=== PATIENT | male | born 1945 | race Caucasian/White ===

== ENCOUNTER → 2018-06-27 09:09 | Outpatient (CLI) | payer MEDICARE, SELFPAY ==
[2018-06-27 10:37] LABS: Hemoglobin A1C% w Est Avg Glu 5.1 % (4.0-6.0)
[2018-06-27 10:47] LABS: Alanine Aminotransferase 44 IU/L (21-72); Albumin Globulin Ratio 1.4 (1.0-2.8); Alkaline Phosphatase 85 U/L (38-126); Aspartate Aminotransferase 39 IU/L (17-59); Bilirubin Total 1.2 mg/dL (0.2-1.3); Blood Urea Nitrogen 9 mg/dL (9-20); Calcium 9.4 mg/dL (8.4-10.2); Carbon Dioxide 29 mmol/L (22-32); Chloride 90 mmol/L (98-107); Cholesterol 178 mg/dL (140-199); Estimated Glomerular Filt Rate > 60.0 mL/min (>60); Globulin 3.7 g/dL (1.7-4.1); Glucose 97 mg/dL (80-110); HDL Cholesterol 65 mg/dL (40-60); HEMOLYSIS < 15 (0-50); LDL Cholesterol Calculated 80 mg/dL (<100); Potassium 3.1 mmol/L (3.4-5.1); Sodium 133 mmol/L (137-145); Total Protein 8.7 g/dL (6.3-8.2); Triglycerides 164 mg/dL (35-150)
== END ==
PROVIDERS: Family Provider Family Medicine; PCP Family Medicine; Visit Provider Family Medicine
DX: E11.9 Type 2 diabetes mellitus without complications (principal); E78.2 Mixed hyperlipidemia; E87.6 Hypokalemia; I10 Essential (primary) hypertension
CPT/HCPCS: 36415; 80053; 80061; 83036; 84443

== ENCOUNTER → 2018-08-01 13:24 | Outpatient (CLI) | payer MEDICARE, SELFPAY ==
[2018-08-01 14:49] LABS: BUN Creatinine Ratio 22.9 (6-22); Blood Urea Nitrogen 16 mg/dL (9-20); Calcium 9.5 mg/dL (8.4-10.2); Carbon Dioxide 23 mmol/L (22-32); Chloride 103 mmol/L (98-107); Estimated Glomerular Filt Rate > 60.0 mL/min (>60); Glucose 95 mg/dL (80-110); HEMOLYSIS < 15 (0-50); Potassium 4.3 mmol/L (3.4-5.1); Sodium 137 mmol/L (137-145)
[2018-08-01 15:16] LABS: Prostate Specific Antigen Scrn 2.25 ng/mL (0.1-4.0)
== END ==
PROVIDERS: Family Provider Family Medicine; PCP Family Medicine; Visit Provider Family Medicine
DX: E11.9 Type 2 diabetes mellitus without complications (principal); I10 Essential (primary) hypertension; Z12.5 Encounter for screening for malignant neoplasm of prostate
CPT/HCPCS: 36415; 80048; G0103

== ENCOUNTER 2019-04-05 10:20 | Inpatient (IN) | payer MEDICARE, SELFPAY ==
[2019-04-05] VITALS (11 sets, daily range): BP systolic 101–147; BP diastolic 53–78; PULSE 72–102; RESP 16–27; TEMP 35.1–36.8; O2SAT 97–100; BMI 19.3; BMI 23.8
--- NOTE | 2019-04-05 10:25 | DI.RAD.S_ITS ---
PROCEDURE: XR ACUTE ABDOMEN SERIES INDICATIONS: altered mental status TECHNIQUE: One view chest and two views of the abdomen were acquired. COMPARISON: None. FINDINGS: Surgical changes and devices: None. Chest: There is elevation of the right diaphragm. No focal consolidation, effusion, or pneumothorax is appreciated. The heart is normal in size. There is aortic atherosclerosis. The pulmonary vascular markings appear to be within normal limits. Degenerative changes of the image portions of the shoulders and spine are not well characterized on this study. Abdomen: No air-filled distended small bowel loops are evident demonstrating air-fluid levels. Air and stool are seen within the colon. No definite pneumoperitoneum is appreciated. The imaged osseous structures are age-appropriate. No suspicious calcifications. Visualized solid organ contours appear normal. Scattered vascular calcifications are present. IMPRESSION: 1. No bowel obstruction. 2. No acute cardiopulmonary process. Dictated by: Rylan Lara M.D. on 04/05/2019 at 10:46 Approved by: Rylan Lara M.D. on 04/05/2019 at 10:48
--- NOTE | 2019-04-05 10:32 | ED.AMS ---
HPI - Altered Mental Status General Chief Complaint: Altered Mental Status Stated Complaint: Altered Mental Status Time Seen by Provider: 04/05/19 10:25 Source: EMS Mode of arrival: EMS Limitations: altered mental status History of Present Illness HPI narrative: This is a 73-year-old male comes to the emergency department with altered mental status. Patient's boss was concerned because he did not show up for work today so they went to his house and found him on the floor. It's unclear when the patient ended up on the floor, he does not recall the circumstances that led up to this. He is confused about the year but is able to tell me his medical history appropriately. He was found with the front are open although the he was on. Patient had urinated on himself. He otherwise is oriented to the fact that he has an anti Cordis and at the hospital. He states that he did stop drinking about 2 days ago because he felt like he was stumbling into things. He states he drinks 5-6 beers daily and when asked if he has ever had the shakes or withdraws he says yes of course. He states he does take an aspirin daily. Cholesterol medication as well as blood pressure medication. Related Data Home Medications Medication Instructions Recorded Confirmed aspirin 81 mg PO DAILY #0 12/25/10 04/05/19 atorvastatin 10 mg PO BEDTIME 04/05/19 04/05/19 potassium chloride 60 meq PO BEDTIME 04/05/19 04/05/19 potassium chloride [Klor-Con M20] 80 meq PO DAILY 04/05/19 04/05/19 Previous Rx's Medication Instructions Recorded hydrochlorothiazide 25 mg PO QDAY #90 tab 06/28/17 nifedipine 30 mg tablet,extended 30 mg PO QDAY #90 tab 07/04/18 release fluticasone propionate 1 spray INTRANASAL QDAYP PRN #16 gm 07/10/18 metoprolol tartrate 50 mg tablet 50 mg PO BID #180 tab 09/17/18 Allergies Allergy/AdvReac Type Severity Reaction Status Date / Time No Known Drug Allergies Allergy Unverified 04/05/19 10:31 Review of Systems Review of Systems ROS Unobtainable: All systems reviewed & are unremarkable except as noted in HPI and below Patient History Medical History Dyslipidemia (Acute) Hypertension (Acute) Family History Father Heart disease Mother Heart disease Social History household members: none Smoking Status: Former smoker alcohol intake: former Smoking Status: Former smoker alcohol intake frequency: 3 or more drinks per day Alcohol type: beer Substance Use Type: does not use Exam Narrative Exam Narrative: GEN: well nourished, disheveled male, alert and oriented to self patient knows he is in [place] at the hospital but does not know the year, patient appears to be in moderate distress. Patient is cool to touch. HEENT: Atraumatic, pupils are equal round reactive to light, extraocular movements are intact, nares are clear, TMs are clear with no fluid, there is no conjunctival pallor. Throat is clear without any exudates, erythema, tonsillar enlargement or uvular deviation, questionable facial droop on right. HEART: Regular rate and rhythm without murmur, clicks, rubs. No carotid bruits, pulses are equal in upper and lower extremities LUNGS:Lungs clear to auscultation, no wheezes, rales, crackles, chest moves symmetrically, no tachypnea accessory muscle use. ABD:bowel sounds normal, soft, non-tender, no guarding, rebound, rigidity, no masses noted, no hepatosplenomegaly :No CVA tenderness MSCL: Non-tender, no muscle atrophy, muscles strength 5/5 upper extremities, patient is able to lift both legs up off the bed a several inches and hold them at equal height. Gait not tested. NEURO:CN 2-12 intact, sensation normal, reflexes 2/4 upper and lower extremities. finger nose finger test patient has mild difficulty bilaterally, patient has difficulty with both legs for heel-caceres. SKIN: Initial Vital Signs Initial Vital Signs: Vital Signs Temperature 95.1 F L 04/05/19 10:26 Pulse Rate 72 04/05/19 10:26 Respiratory Rate 18 04/05/19 10:26 Blood Pressure 147/74 H 04/05/19 10:26 Pulse Oximetry 100 04/05/19 10:26 Scores GCS Portal coma scale eye opening: Spontaneous Chris coma scale verbal response: Confused Portal coma scale motor response: Obey commands Chris coma scale total score: 14 Course Orders Ordered: ED Orders 04/05/19 10:10 CKMB Panel (CK + CKMB) Stat Complete Blood Count AUTO DIFF Stat Comprehensive Metabolic Panel Stat Ethanol (ETOH) Stat Partial Thromboplastin Time Stat Procalcitonin Stat Prolactin Stat Prothrombin Time INR Stat Thyroid Stimulating Hormone Stat Troponin I Stat 04/05/19 10:15 Ammonia (NH3) Stat Lactate (Lactic Acid) Stat Type and Screen Stat 04/05/19 10:25 XR acute abdomen series Stat EKG-12 Lead Stat 04/05/19 10:32 CT angio head and neck Stat 04/05/19 12:07 Urinalysis and Microscopic Stat Urine Drug Screen, Rapid Stat 04/05/19 13:43 Blood Culture Stat Enoxaparin Sodium (Lovenox) 30 mg SUBCUT DAILY DION Last Admin: 04/05/19 14:57 Dose: 30 mg Documented by: HARSH Sodium Chloride (Normal Saline 0.9%) 1,000 mls @ 200 mls/hr IV CONT DION Last Admin: 04/05/19 13:44 Dose: 200 mls/hr Documented by: HARSH Influenza Virus Vaccine (Flu Vaccine) 0.5 ml IM .ONCE ONE Stop: 04/06/19 09:01 Naloxone HCl (Narcan) 0.2 mg IV Q2MIN PRN PRN Reason: Opiate Reversal Discontinued Medications Sodium Chloride (Normal Saline 0.9%) 1,000 mls @ 1,000 mls/hr IV BOLUS ONE Stop: 04/05/19 11:24 Last Infusion: 04/05/19 12:50 Dose: 0 mls/hr Documented by: Admin: 04/05/19 11:27 Dose: 1,000 mls/hr Documented by: TERE Sodium Chloride (Normal Saline 0.9%) 1,000 mls @ 1,000 mls/hr IV BOLUS ONE Stop: 04/05/19 14:10 Last Infusion: 04/05/19 13:24 Dose: 0 mls/hr Documented by: Admin: 04/05/19 12:15 Dose: 1,000 mls/hr Documented by: OPAL Vital Signs Vital signs: Vital Signs - 8 hr 04/05/19 11:34 04/05/19 12:08 04/05/19 12:12 Temperature 98.2 F Pulse Rate 81 84 Respiratory Rate 16 27 H Blood Pressure [Left Arm] 139/53 L 120/78 Pulse Oximetry 100 100 MDM - Altered Mental Status Lab Data Attestation: I reviewed the patient's lab results. Result diagrams: 04/05/19 10:10 04/05/19 10:10 Labs: Lab Results 04/05/19 04/05/19 04/05/19 Range/Units 10:10 10:10 10:10 WBC 8.7 (4.5-11.0) X10^3/uL RBC 3.91 L (4.5-5.9) X10^6/uL Hgb 13.0 L (13.5-17.5) g/dL Hct 37.4 L (41-53) % MCV 95.6 (80-100) fL MCH 33.3 (26-34) PG MCHC 34.8 (30-36) % RDW 12.8 (11.6-14.8) % Plt Count 219 (150-400) X10^3/uL Neut % (Auto) 82.1 H (50-75) % Lymph % (Auto) 6.1 L (25-40) % Stephenson % (Auto) 11.6 (3-14) % Eos % (Auto) 0.0 L (2-4) % Baso % (Auto) 0.2 (0-2) % Neut # (Auto) 7100 H (1119-0414) /uL Lymph # (Auto) 500 L (5939-6783) /uL Stephenson # (Auto) 1000 H (0-900) /uL Eos # (Auto) 0 (0-450) /uL Baso # (Auto) 0 (0-100) /uL PT 12.6 (10.1-12.7) SECONDS INR 1.1 (0.9-1.3) APTT 38 H (26.4-36.2) SECONDS Sodium 123 L (137-145) mmol/L Potassium 5.8 H (3.4-5.1) mmol/L Chloride 88 L (98-107) mmol/L Carbon Dioxide 12 L (22-32) mmol/L BUN 54 H (9-20) mg/dL Creatinine 3.60 H (0.66-1.25) mg/dL Estimated GFR 16.7 L (>60) mL/min BUN/Creatinine Ratio 15.0 (6-22) Glucose 102 (80-110) mg/dL Lactate (0.7-2.1) mmol/L Calcium 9.6 (8.4-10.2) mg/dL Total Bilirubin 2.0 H (0.2-1.3) mg/dL AST 193 H (17-59) IU/L ALT 48 (<50) IU/L Alkaline Phosphatase 90 (38-126) U/L Ammonia (9-30) umol/L Total Creatine Kinase 4435 H (55-170) U/L CK-MB (CK-2) 89.20 H (<2.37) ng/mL CK-MB (CK-2) Rel Index 2.0 (1.5-5.0) % Troponin I 0.040 H (0.01-0.034) ng/mL Total Protein 8.2 (6.3-8.2) g/dL Albumin 4.9 (3.5-5.0) g/dL Globulin 3.3 (1.7-4.1) g/dL Albumin/Globulin Ratio 1.5 (1.0-2.8) Procalcitonin (<0.5) ng/mL TSH (0.47-4.68) uIU/mL Prolactin 4.2 (3.7-17.9) ng/mL Urine Color Urine Appearance Urine pH (4.5-8.0) Ur Specific Bronson (1.000-1.035) Urine Protein (Negative) Urine Glucose (UA) (Negative) g/dL Urine Ketones (NEGATIVE) Urine Occult Blood (Negative) Urine Nitrate (Negative) Urine Bilirubin (NEGATIVE) Urine Urobilinogen (0.2) E.U./dL Ur Leukocyte Esterase (NEGATIVE) Urine RBC (0-5/HPF) Urine WBC (0-5/HPF) Urine Bacteria (None) Ur Culture Indicated? U Morph 300 ng/mL cutoff (Negative) Ur Oxycodone Screen (Negative) Urine Methadone Screen (Negative) Ur Barbiturates Screen (Negative) U Tricyclic Antidepress (Negative) Ur Phencyclidine Scrn (Negative) Ur Amphetamines Screen (Negative) U Methamphetamines Scrn (Negative) Ur MDMA Scrn (Ecstasy) (Negative) U Benzodiazepines Scrn (Negative) Urine Cocaine Screen (Negative) U Marijuana (THC) Screen (Negative) Ethyl Alcohol < 10 ( - 10) mg/dL Blood Type Antibody Screen 04/05/19 04/05/19 04/05/19 Range/Units 10:10 10:10 10:10 WBC (4.5-11.0) X10^3/uL RBC (4.5-5.9) X10^6/uL Hgb (13.5-17.5) g/dL Hct (41-53) % MCV (80-100) fL MCH (26-34) PG MCHC (30-36) % RDW (11.6-14.8) % Plt Count (150-400) X10^3/uL Neut % (Auto) (50-75) % Lymph % (Auto) (25-40) % Stephenson % (Auto) (3-14) % Eos % (Auto) (2-4) % Baso % (Auto) (0-2) % Neut # (Auto) (5332-7126) /uL Lymph # (Auto) (0561-4314) /uL Stephenson # (Auto) (0-900) /uL Eos # (Auto) (0-450) /uL Baso # (Auto) (0-100) /uL PT (10.1-12.7) SECONDS INR (0.9-1.3) APTT (26.4-36.2) SECONDS Sodium (137-145) mmol/L Potassium (3.4-5.1) mmol/L Chloride (98-107) mmol/L Carbon Dioxide (22-32) mmol/L BUN (9-20) mg/dL Creatinine (0.66-1.25) mg/dL Estimated GFR (>60) mL/min BUN/Creatinine Ratio (6-22) Glucose (80-110) mg/dL Lactate (0.7-2.1) mmol/L Calcium (8.4-10.2) mg/dL Total Bilirubin (0.2-1.3) mg/dL AST (17-59) IU/L ALT (<50) IU/L Alkaline Phosphatase (38-126) U/L Ammonia (9-30) umol/L Total Creatine Kinase Cancelled (55-170) U/L CK-MB (CK-2) Cancelled (<2.37) ng/mL CK-MB (CK-2) Rel Index Cancelled (1.5-5.0) % Troponin I Cancelled (0.01-0.034) ng/mL Total Protein (6.3-8.2) g/dL Albumin (3.5-5.0) g/dL Globulin (1.7-4.1) g/dL Albumin/Globulin Ratio (1.0-2.8) Procalcitonin 0.70 H (<0.5) ng/mL TSH 1.31 (0.47-4.68) uIU/mL Prolactin Cancelled (3.7-17.9) ng/mL Urine Color Urine Appearance Urine pH (4.5-8.0) Ur Specific Bronson (1.000-1.035) Urine Protein (Negative) Urine Glucose (UA) (Negative) g/dL Urine Ketones (NEGATIVE) Urine Occult Blood (Negative) Urine Nitrate (Negative) Urine Bilirubin (NEGATIVE) Urine Urobilinogen (0.2) E.U./dL Ur Leukocyte Esterase (NEGATIVE) Urine RBC (0-5/HPF) Urine WBC (0-5/HPF) Urine Bacteria (None) Ur Culture Indicated? U Morph 300 ng/mL cutoff (Negative) Ur Oxycodone Screen (Negative) Urine Methadone Screen (Negative) Ur Barbiturates Screen (Negative) U Tricyclic Antidepress (Negative) Ur Phencyclidine Scrn (Negative) Ur Amphetamines Screen (Negative) U Methamphetamines Scrn (Negative) Ur MDMA Scrn (Ecstasy) (Negative) U Benzodiazepines Scrn (Negative) Urine Cocaine Screen (Negative) U Marijuana (THC) Screen (Negative) Ethyl Alcohol ( - 10) mg/dL Blood Type Antibody Screen 04/05/19 04/05/19 04/05/19 Range/Units 10:15 10:15 10:15 WBC (4.5-11.0) X10^3/uL RBC (4.5-5.9) X10^6/uL Hgb (13.5-17.5) g/dL Hct (41-53) % MCV (80-100) fL MCH (26-34) PG MCHC (30-36) % RDW (11.6-14.8) % Plt Count (150-400) X10^3/uL Neut % (Auto) (50-75) % Lymph % (Auto) (25-40) % Stephenson % (Auto) (3-14) % Eos % (Auto) (2-4) % Baso % (Auto) (0-2) % Neut # (Auto) (3055-1643) /uL Lymph # (Auto) (3057-1676) /uL Stephenson # (Auto) (0-900) /uL Eos # (Auto) (0-450) /uL Baso # (Auto) (0-100) /uL PT (10.1-12.7) SECONDS INR (0.9-1.3) APTT (26.4-36.2) SECONDS Sodium (137-145) mmol/L Potassium (3.4-5.1) mmol/L Chloride (98-107) mmol/L Carbon Dioxide (22-32) mmol/L BUN (9-20) mg/dL Creatinine (0.66-1.25) mg/dL Estimated GFR (>60) mL/min BUN/Creatinine Ratio (6-22) Glucose (80-110) mg/dL Lactate 2.8 H (0.7-2.1) mmol/L Calcium (8.4-10.2) mg/dL Total Bilirubin (0.2-1.3) mg/dL AST (17-59) IU/L ALT (<50) IU/L Alkaline Phosphatase (38-126) U/L Ammonia < 9.0 L (9-30) umol/L Total Creatine Kinase (55-170) U/L CK-MB (CK-2) (<2.37) ng/mL CK-MB (CK-2) Rel Index (1.5-5.0) % Troponin I (0.01-0.034) ng/mL Total Protein (6.3-8.2) g/dL Albumin (3.5-5.0) g/dL Globulin (1.7-4.1) g/dL Albumin/Globulin Ratio (1.0-2.8) Procalcitonin (<0.5) ng/mL TSH (0.47-4.68) uIU/mL Prolactin (3.7-17.9) ng/mL Urine Color Urine Appearance Urine pH (4.5-8.0) Ur Specific Bronson (1.000-1.035) Urine Protein (Negative) Urine Glucose (UA) (Negative) g/dL Urine Ketones (NEGATIVE) Urine Occult Blood (Negative) Urine Nitrate (Negative) Urine Bilirubin (NEGATIVE) Urine Urobilinogen (0.2) E.U./dL Ur Leukocyte Esterase (NEGATIVE) Urine RBC (0-5/HPF) Urine WBC (0-5/HPF) Urine Bacteria (None) Ur Culture Indicated? U Morph 300 ng/mL cutoff (Negative) Ur Oxycodone Screen (Negative) Urine Methadone Screen (Negative) Ur Barbiturates Screen (Negative) U Tricyclic Antidepress (Negative) Ur Phencyclidine Scrn (Negative) Ur Amphetamines Screen (Negative) U Methamphetamines Scrn (Negative) Ur MDMA Scrn (Ecstasy) (Negative) U Benzodiazepines Scrn (Negative) Urine Cocaine Screen (Negative) U Marijuana (THC) Screen (Negative) Ethyl Alcohol ( - 10) mg/dL Blood Type O Positive Antibody Screen Negative 04/05/19 04/05/19 Range/Units 12:07 12:07 WBC (4.5-11.0) X10^3/uL RBC (4.5-5.9) X10^6/uL Hgb (13.5-17.5) g/dL Hct (41-53) % MCV (80-100) fL MCH (26-34) PG MCHC (30-36) % RDW (11.6-14.8) % Plt Count (150-400) X10^3/uL Neut % (Auto) (50-75) % Lymph % (Auto) (25-40) % Stephenson % (Auto) (3-14) % Eos % (Auto) (2-4) % Baso % (Auto) (0-2) % Neut # (Auto) (7610-1796) /uL Lymph # (Auto) (8788-2863) /uL Stephenson # (Auto) (0-900) /uL Eos # (Auto) (0-450) /uL Baso # (Auto) (0-100) /uL PT (10.1-12.7) SECONDS INR (0.9-1.3) APTT (26.4-36.2) SECONDS Sodium (137-145) mmol/L Potassium (3.4-5.1) mmol/L Chloride (98-107) mmol/L Carbon Dioxide (22-32) mmol/L BUN (9-20) mg/dL Creatinine (0.66-1.25) mg/dL Estimated GFR (>60) mL/min BUN/Creatinine Ratio (6-22) Glucose (80-110) mg/dL Lactate (0.7-2.1) mmol/L Calcium (8.4-10.2) mg/dL Total Bilirubin (0.2-1.3) mg/dL AST (17-59) IU/L ALT (<50) IU/L Alkaline Phosphatase (38-126) U/L Ammonia (9-30) umol/L Total Creatine Kinase (55-170) U/L CK-MB (CK-2) (<2.37) ng/mL CK-MB (CK-2) Rel Index (1.5-5.0) % Troponin I (0.01-0.034) ng/mL Total Protein (6.3-8.2) g/dL Albumin (3.5-5.0) g/dL Globulin (1.7-4.1) g/dL Albumin/Globulin Ratio (1.0-2.8) Procalcitonin (<0.5) ng/mL TSH (0.47-4.68) uIU/mL Prolactin (3.7-17.9) ng/mL Urine Color Yellow Urine Appearance Clear Urine pH 5.5 (4.5-8.0) Ur Specific Bronson <=1.005 (1.000-1.035) Urine Protein Negative (Negative) Urine Glucose (UA) Negative (Negative) g/dL Urine Ketones Negative (NEGATIVE) Urine Occult Blood 2+ H (Negative) Urine Nitrate Negative (Negative) Urine Bilirubin Negative (NEGATIVE) Urine Urobilinogen 0.2 (0.2) E.U./dL Ur Leukocyte Esterase Negative (NEGATIVE) Urine RBC 0-1/hpf (0-5/HPF) Urine WBC 0-1/hpf (0-5/HPF) Urine Bacteria None seen (None) Ur Culture Indicated? Cult not indicated U Morph 300 ng/mL cutoff Negative (Negative) Ur Oxycodone Screen Negative (Negative) Urine Methadone Screen Negative (Negative) Ur Barbiturates Screen Negative (Negative) U Tricyclic Antidepress Negative (Negative) Ur Phencyclidine Scrn Negative (Negative) Ur Amphetamines Screen Negative (Negative) U Methamphetamines Scrn Negative (Negative) Ur MDMA Scrn (Ecstasy) Negative (Negative) U Benzodiazepines Scrn Negative (Negative) Urine Cocaine Screen Negative (Negative) U Marijuana (THC) Screen Negative (Negative) Ethyl Alcohol ( - 10) mg/dL Blood Type Antibody Screen Imaging Data CT scan - head: Radiologist's impression: [address] [address] [address] Scan Report Signed Patient: Hector Wagner R#: [id number] : 6Acct:[id number] Age/Sex: 73 / MDate of Service: 04/05/19 Loc: ED Accession Number: [id number] Procedure: CT angio head and neck Ordering Provider: Tonie Fernandez D.O. PROCEDURE: CT ANGIO HEAD AND NECK INDICATIONS: cva vs other TECHNIQUE: Pre-contrast 4.5 mm thick sections acquired from the foramen magnum to the vertex. After the administration of intravenous contrast, 1 mm thick sections acquired from the aortic arch through the [place]. Post-contrast 4.5 mm thick sections then re-acquired from the foramen magnum to the vertex. 3-dimensional kqfryrp-qjacmgaqv-mzrvjflfzm (MIP) and/or volume rendering reformats were acquired of the central intracranial vasculature and neck separately. COMPARISON: None. FINDINGS: Image quality: Excellent. BRAIN: CSF spaces: Ventricles are normal in size and shape. Basal cisterns are patent. No extra-axial fluid collections. Brain: No midline shift. No intracranial bleeds. There is enlargement of the pituitary, measuring roughly 15 mm craniocaudal, which abuts the optic chiasm. There is mild diffuse cerebral volume loss. There is a mild degree of patchy low density within the periventricular and subcortical white matter. Lopez-white matter interface appears intact. Skull and face: Calvarium and facial bones appear intact, without suspicious lesions. Orbits appear normal. Sinuses: Sinuses and mastoids are clear. HEAD CT ANGIOGRAPHY: Anterior circulation: There is mild, less than 30% calcific stenosis of the bilateral cavernous internal carotid arteries. Intracranial internal carotid arteries are otherwise normal in size and flow. The flow within the paired anterior cerebral arteries is normal and symmetric. The flow within the middle cerebral arteries is normal and symmetric. The anterior communicating artery is seen. No aneurysms are seen. Posterior circulation: Visualized portions of the vertebral arteries demonstrate normal caliber, and join to form a normal appearing basilar artery. Flow within the posterior cerebral arteries is normal and symmetric. No aneurysms are seen. NECK CT ANGIOGRAPHY: Carotid system: Left vertebral artery arises directly from the aortic arch. The origins of the common carotid arteries appear patent. The common carotid arteries demonstrate normal caliber and courses. 50% calcific stenosis of the distal right common carotid artery is present at the bifurcation. There is 50% stenosis of the right internal carotid artery origin. High-grade stenosis of the right external carotid artery origin is present. There is mild, less than 10% calcific stenosis of the distal left common carotid artery at the bifurcation. Left internal carotid artery is patent. Posterior circulation: Moderate to high-grade origin stenosis of the right vertebral artery is present. Left vertebral artery arises roughly from the thoracic aortic arch, and demonstrates a moderate to high-grade origin stenosis. The more superior extracranial portions of both vertebral arteries also demonstrate normal courses and calibers. They join to form a normal appearing basilar artery. Soft tissues: Visualized neck soft tissues demonstrate no suspicious abnormalities. Calcification of the coronary vasculature is present. Bones: No suspicious bony lesions. Visualized cervical spine appears normally aligned. IMPRESSION: 1. No acute process. 2. Bilateral vertebral artery origin stenoses as described above. 3. 50 % right internal carotid artery stenosis. No left internal carotid artery stenosis. 4. 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 Nonemergent pituitary protocol MRI is recommended for further assessment. Any quantitative measurements of stenosis were performed using NASCET criteria. Dictated by: Jessica Smith M.D. on 04/05/2019 at 11:20 Approved by: Jessica Simth M.D. on 04/05/2019 at 11:29 Chest x-ray: Radiologist's impression: [address] [address] XRay Report Signed Patient: Hector Wagner R#: [id number] : 6Acct:[id number] Age/Sex: 73 / MDate of Service: 04/05/19 Loc: ED Accession Number: [id number] Procedure: XR acute abdomen series Ordering Provider: Tonie Fernandez D.O. PROCEDURE: XR ACUTE ABDOMEN SERIES INDICATIONS: altered mental status TECHNIQUE: One view chest and two views of the abdomen were acquired. COMPARISON: None. FINDINGS: Surgical changes and devices: None. Chest: There is elevation of the right diaphragm. No focal consolidation, effusion, or pneumothorax is appreciated. The heart is normal in size. There is aortic atherosclerosis. The pulmonary vascular markings appear to be within normal limits. Degenerative changes of the image portions of the shoulders and spine are not well characterized on this study. Abdomen: No air-filled distended small bowel loops are evident demonstrating air-fluid levels. Air and stool are seen within the colon. No definite pneumoperitoneum is appreciated. The imaged osseous structures are age-appropriate. No suspicious calcifications. Visualized solid organ contours appear normal. Scattered vascular calcifications are present. IMPRESSION: 1. No bowel obstruction. 2. No acute cardiopulmonary process. Dictated by: Rylan Lara M.D. on 04/05/2019 at 10:46 Approved by: Rylan Lara M.D. on 04/05/2019 at 10:48 ECG Data Attestation: I personally reviewed and interpreted this ECG as follows: Prior ECG tracings: not available for review Interpretation: Sinus rhythm with first-degree AV block. Rate of 79 P are 237 QRS of 122 and QTC of 465. Patient has ST depression in lateral leads, also in 1 and aVL. Patient has some elevation in 3, none appreciated in to our AVF although patient does have some artifact. Patient does not have priors for comparison. [facility] Narrative Medical decision making narrative: Patient comes in with altered mental status. No clear focal deficits. CT head and angio shows some 50% stenosis. Exact timing of when patient's episode occurred and could be greater than 24 hours easily so would definitely not be a candidate for any intervention. Patient's lab work shows rhabdo, hyponatremia which would explain his altered mental status, patient has some mild hyperkalemia and acute renal failure. Patient had a Bethea catheter placed for strict eyes and nose and immediately had about 3.5 L out over 30 minutes. Patient's blood pressure continued to be stable he did not become more tachycardic. Troponin is indeterminate, EKG does show some ST changes but only 1 lead of elevation. Patient does not have any prior EKGs and we also contacted his primary care office they also do not have any prior EKGs. Patient is alert and although he does not know the year is otherwise oriented to self and able to give some history and denies any symptoms at this time. Patient does have a procalcitonin but no obvious source of infection. Urine is negative, blood cultures were ordered. Patient has been afebrile in the department. He is actually cold to touch but was lying on the floor with his door open at home likely overnight if not longer. Patient's case was discussed with Dr. Yanez who accepts for admission, plan for ICU admission as patient is having massive diuresis and could potentially become hypotensive. Discharge Plan Departure Patient Disposition: Admitted As Inpatient Clinical Impression: Rhabdomyolysis, Altered mental status, Hyponatremia, Acute renal failure, Hyperkalemia, Acute urinary retention Discharge Date/Time: 04/05/19 13:24 Admit Date/Time: 04/05/19 12:40 Admit Provider: Nolberto Yanez
[2019-04-05 10:40] LABS: INR 1.1 (0.9-1.3); Prothrombin Time 12.6 SECONDS (10.1-12.7)
[2019-04-05 10:43] LABS: PTT Partial Thromboplastin Tim 38 SECONDS (26.4-36.2)
[2019-04-05 10:46] LABS: Albumin 4.9 g/dL (3.5-5.0); Albumin Globulin Ratio 1.5 (1.0-2.8); Alkaline Phosphatase 90 U/L (38-126); Aspartate Aminotransferase 193 IU/L (17-59); Blood Urea Nitrogen 54 mg/dL (9-20); Calcium 9.6 mg/dL (8.4-10.2); Carbon Dioxide 12 mmol/L (22-32); Chloride 88 mmol/L (98-107); Estimated Glomerular Filt Rate 16.7 mL/min (>60); Ethanol (ETOH) < 10 mg/dL; Globulin 3.3 g/dL (1.7-4.1); Glucose 102 mg/dL (80-110); Sodium 123 mmol/L (137-145); Total Protein 8.2 g/dL (6.3-8.2)
[2019-04-05 10:52] LABS: Alanine Aminotransferase 48 IU/L (<50); HEMOLYSIS 36 (0-50)
[2019-04-05 10:53] LABS: Potassium 5.8 mmol/L (3.4-5.1)
[2019-04-05 10:55] LABS: Add Manual Diff / Slide Review NO; Basophils Absolute Auto 0 /uL (0-100); Basophils Percent Auto 0.2 % (0-2); Eosinophils Absolute Auto 0 /uL (0-450); Hematocrit 37.4 % (41-53); Lymphocytes Absolute Auto 500 /uL (1100-4500); Lymphocytes Percent Auto 6.1 % (25-40); Mean Corpuscular HGB Conc 34.8 % (30-36); Mean Corpuscular Hemoglobin 33.3 PG (26-34); Mean Corpuscular Volume 95.6 fL (80-100); Monocytes Absolute Auto 1000 /uL (0-900); Monocytes Percent Auto 11.6 % (3-14); Neutrophils Absolute Auto 7100 /uL (1500-7000); Neutrophils Percent Auto 82.1 % (50-75); Platelet Count 219 X10^3/uL (150-400); Red Blood Cell Count 3.91 X10^6/uL (4.5-5.9); Red Cell Distribution Width 12.8 % (11.6-14.8); White Blood Cell Count 8.7 X10^3/uL (4.5-11.0)
--- NOTE | 2019-04-05 10:58 | PC.NURSE ---
Patient found down reports no recollection of what happen this morning. Found next to bright red blood on floor. Patient states he usually drinks 5-6 beers a day but stopped drinking the other day because he was knocking things over and having hard time walking Pt poor historian. Knowns he is in a hospital but does not know year.
[2019-04-05 11:02] LABS: Prolactin 4.2 ng/mL (3.7-17.9)
[2019-04-05 11:16] LABS: Ammonia (NH3) < 9.0 umol/L (9-30); Lactate (Lactic Acid) 2.8 mmol/L (0.7-2.1)
[2019-04-05 11:26] LABS: Thyroid Stimulating Hormone 1.31 uIU/mL (0.47-4.68)
[2019-04-05 11:27] LABS: Creatine Kinase 4435 U/L (55-170)
[2019-04-05] MEDS: SODIUM CHLORIDE 0.9% 1,000 ML 1000 ML IV ×2 (11:27→12:15)
[2019-04-05 12:09] LABS: Bacteria Urine None Seen
--- NOTE | 2019-04-05 12:10 | PC.NURSE ---
Critical Lab CKMB 89.2. Mathieu Fernandez aware
[2019-04-05 12:12] LABS: Appearance Urine UA CLEAR; Bilirubin Urine UA NEGATIVE (NEGATIVE); Color Urine UA YELLOW; Glucose Urine UA NEGATIVE (Negative); Ketones Urine UA NEGATIVE (NEGATIVE); Leukocyte Esterase Urine UA NEGATIVE (NEGATIVE); Nitrite Urine UA NEGATIVE (Negative); Occult Blood Urine UA 2+ (Negative); Protein Urine UA NEGATIVE (Negative); Specific Gravity Urine UA <=1.005 (1.000-1.035); Urobilinogen Urine UA 0.2 E.U./dL (0.2); pH Urine UA 5.5 (4.5-8.0)
[2019-04-05 12:19] LABS: Ur Creatinine Normal (Normal); Ur Specific Gravity Normal (Normal); Urine Amphetamines Negative (Negative); Urine Barbiturates Negative (Negative); Urine Benzodiazepines Negative (Negative); Urine Cocaine Negative (Negative); Urine MDMA Negative (Negative); Urine Methadone Negative (Negative); Urine Methamphetamines Negative (Negative); Urine Opiates Negative (Negative); Urine Oxycodone Negative (Negative); Urine Phencyclidine Negative (Negative); Urine THC Negative (Negative); Urine Tricyclic Antidepressant Negative (Negative); Urine pH Normal (Normal)
[2019-04-05 12:26] LABS: RBC Urine 0-1/HPF (0-5/HPF); WBC Urine 0-1/HPF (0-5/HPF)
[2019-04-05 12:27] LABS: Culture Indicated Urine Cult Not Indicated
[2019-04-05 12:55] LABS: Reflexed Lactate in 2 Hours Y
--- NOTE | 2019-04-05 13:20 | DI.ECHO.S_ITS ---
[facility]+ [facility] +---------+ : : [address] : [place] : : : : [id number] : : : : Phone: [phone]+ Echocardiogram Report + + :Name: JAVAN FOURNIER Study Date: 04/06/2019 Height: 62 in : :[facility] Weight: 150 lb : : Gender: Male BSA: 1.7 m2 : :: 1945 Age: 73 yrs BP: 111/48 mmHg: :Reason For Study: CAD : : Performed By: Anjelica Arauz : :Referring: AGATA PATEL : + + Interpretation Summary Normal left ventricle size with ejection fraction 45-50%. Apical anterior wall, apical septum and apex are akinetic. Grade I diastolic dysfunction. The left atrium is severely dilated. Moderate mitral annular calcification. Mild tricuspid regurgitation. Comparison is made with the echocardiogram of 04-02-13, LV function has worsen with new wall motion abnormality. Procedure: A two-dimensional transthoracic echocardiogram with color flow and Doppler was performed. The study quality was technically adequate. Comparison is made with the echocardiogram of 04-02-13. 1.5 cc of Definity contrast was used to improve images of the LV apex. The patient was in normal sinus rhythm during the exam. Left Ventricle: The left ventricle is normal in size. The ejection fraction is estimated to be 45-50%. There is apical anterior wall akinesis. There is apical septal wall severe hypokinesis. There is apical akinesis. Diastolic parameters suggest a relaxation abnormality of the left ventricle, consistent with probable normal filling pressures. Right Ventricle: The right ventricle grossly appears normal in size with probable normal systolic function. Atria: The left atrium is severely dilated. Right atrial size is normal. The interatrial septum is intact with no evidence for an atrial septal defect. Mitral Valve: The mitral valve leaflets appear mildly thickened, but open well. There is moderate mitral annular calcification. There is no mitral regurgitation noted. Aortic Valve: The aortic valve is trileaflet. The aortic valve opens well. No aortic regurgitation is present. Tricuspid Valve: The tricuspid valve leaflets are thin and pliable. There is mild tricuspid regurgitation. The right ventricular systolic pressure is estimated to be at least 31 mmHg based on an estimated right atrial pressure of 3 mm Hg. Pulmonic Valve: The pulmonic valve is not well seen, but is grossly normal. There is a trace or physiologic amount of pulmonic regurgitation. Great Vessels: The aortic root is normal size. The aortic arch is normal in size. Pericardium/ Pleura There is no pericardial effusion. There is no pleural effusion. MMode/2D Measurements & Calculations LVIDd: 5.2 cm Ao root diam: 3.6 cm LVIDs: 4.2 cm Aortic Jxn: 3.2 cm FS: 19.1 % Ao Arch Diam (Prox Trans): 2.4 cm EPSS: 0.83 cm IVSd: 1.0 cm LVPWd: 0.77 cm LV tyson. diameter/BSA (cm/m^2): 3.1 LV sys. diameter/BSA (cm/m^2): 2.5 LA dimension: 4.3 cm RA long axis: 4.8 cm LA A2 area: 21.7 cm2 RA area: 15.8 cm2 LA A4 area: 22.9 cm2 RA vol: 44.2 ml LA length (vol): 4.8 cm RA : 26.1 ml/m2 LA vol: 87.5 ml IVC diam: 1.4 cm LA vol index: 51.8 ml/m2 RVDd major: 5.7 cm RVD1 (basal): 2.6 cm RVD2 (mid): 2.3 cm Doppler Measurements & Calculations Ao V2 max: 136.9 cm/sec MV E max rodri: 75.9 cm/sec Ao V2 mean: 80.1 cm/sec MV A max rodri: 110.2 cm/sec Ao max P.5 mmHg MV E/A: 0.69 Ao mean P.2 mmHg Med Peak E' Rodri: 6.6 cm/sec Ao V2 VTI: 25.8 cm E/E' med: 11.4 Lat Peak E' Rodri: 8.7 cm/sec E/E' lat: 8.7 E/e' average: 10.1 MV dec time: 0.22 sec MV P1/2t: 62.9 msec TR max rodri: 264.8 cm/sec MV P1/2t max rodri: 75.4 cm/sec TR max P.1 mmHg MVA(P1/2t): 3.5 cm2 PA V2 max: 128.0 cm/sec PA V2 mean: 72.4 cm/sec PA mean P.7 mmHg PA Accel Time: 0.12 sec Electronically signed by: Yas Leyva on Reading Physician:04/06/2019 05:49 PM
--- NOTE | 2019-04-05 13:20 | DI.MRI.S_ITS ---
PROCEDURE: MR HEAD/BRAIN WO CON INDICATIONS: ms change TECHNIQUE: Non-contrast axial T1 spin echo, axial T2 fast spin echo, sagittal and axial FLAIR, coronal T2 fast spin echo, axial gradient echo, axial diffusion and ADC through the brain. COMPARISON: [facility], CT, CT ANGIO HEAD AND NECK, 04/05/2019, 10:33. FINDINGS: Image quality: Severely degraded by patient motion artifact. CSF spaces: Ventricles appear symmetric in size and shape. Basal cisterns are patent. No extra-axial fluid collections. Brain: No intracranial bleeds or mass effects. There is moderate cerebral volume loss for age. There are mild periventricular and deep white matter chronic small vessel ischemic changes. There is a confluent area of increased T2 signal in the left cardia which may represent chronic microvascular ischemic change, however neither late subacute/early chronic infarct nor low-grade neoplastic process cannot be completely excluded. Brainstem appears normal. Diffusion-weighted images show no acute ischemic insults. No chronic ischemic insults. Normal intravascular flow voids are present. Pituitary gland is enlarged. Skull and face: Calvarial bone marrow is normal in signal. Orbits are normal. Sinuses: Sinuses and mastoids are clear. IMPRESSION: 1. Image quality severely degraded by patient motion artifact. 2. Small confluent area of increased T2 signal in the left daniels radiata which may represent chronic microvascular ischemic change, however other etiologies including late subacute/early chronic infarct and less likely low-grade neoplastic process could have a similar appearance. Recommend repeat MRI of the brain with and without contrast would benefit of patient sedation. 3. Pituitary gland mass. Recommend evaluation time of repeat MRI of the brain with and without contrast. Dictated by: Claribel Chamberlain MD, PhD on 04/05/2019 at 15:01 Approved by: Claribel Chamberlain MD, PhD on 04/05/2019 at 15:15
[2019-04-05] MEDS: SODIUM CHLORIDE 0.9% 1,000 ML 200 ML IV ×2 (13:44→19:16)
[2019-04-05 14:07] LABS: Lactate 2HR (Lactic Acid Rflx) 1.9 mmol/L (0.7-2.1)
--- NOTE | 2019-04-05 14:16 | PC.NURSE ---
gave jermain Pagan's info to leo Wise.
[2019-04-05 14:20] LABS: Troponin I 0.033 ng/mL (0.01-0.034)
[2019-04-05 14:25] LABS: Creatine Kinase 4447 U/L (55-170)
[2019-04-05 14:45] LABS: Procalcitonin 0.39 ng/mL (<0.5)
[2019-04-05] MEDS: ENOXAPARIN 30 MG/0.3 ML SYRINGE SUBCUT (14:57)
--- NOTE | 2019-04-05 15:23 | PC.NURSE ---
Admit Note Pt arrived to room 103 from ER at 1330. Transferred to bed via slider board. Drowsy, flat affect, able to answer questions but confused regarding timeline of events leading to hospitalization. IV fluids infusing, Bethea catheter in place and draining clear yellow urine. Dr. Yanez at bedside. Clothing in room closet along with cell phone and devulcanizer charger. Oriented to room and to call light/bed/tv controls. Call light within reach, bed alarm is on.
--- NOTE | 2019-04-05 17:02 | P.HP_ITS ---
History of Present Illness History of Present Illness Date Patient Seen: 04/05/19 Time Patient Seen: 14:02 Chief complaint: Altered Mental Status Narrative: Altered mental status. Patient admitted through the ER for same. History is somewhat sketchy as per ER doctor and as per patient. As best I can tell. The patient was absent from work today so his employer went to his apartment. The patient was found on the floor not unconscious. Because of his being on the floor paramedics were called he was taken to the emergency room. Patient self has no recollection of how long he was on the floor he thought maybe it was for couple hours. It's unclear to him why he was on the floor. Best taking recall on Tuesday he had some unsteadiness when he walks he thought his from his [employer] normally drinks 6 beers a day so he did not drink after Tuesday. Tuesday he recalls he has some issues with vomiting but he is not clear exactly what else. He believes on today he had some issues with vomiting but he is not clear. Currently he denies any pain whatsoever feels much better now than he did when he was in the ER. Denies any head changes of it visual changes any extremity changes no apparent bruising no history of this in the past. Some question whether not he had alcohol withdrawals in the past details of that are unknown to me. Evaluation emergency room found abnormalities as follows with elevated CK, elevated creatinine, slightly elevated procalcitonin and lactate, nonspecific ST changes on electrocardiogram. He had a normal head CT and otherwise unremarkable lab other than sodium 122. Patient was admitted to the ICU for evaluation monitoring of his rhabdomyolysis, acute kidney injury, electrolyte imbalance, questionable sepsis, questionable type 2 myocardial infarction in that he had slightly elevated troponins. Patient History Medical History Dyslipidemia (Acute) Hypertension (Acute) Family & Social History Family History Father Heart disease Mother Heart disease Social History: household members none Prior Living Arrangements House Safety & Behavioral: Feels Safe in Current Yes Environment Been Physically Hurt or No Threatened By a Person Suicidal Ideation Description None Suicide Plan Description No Plan Tobacco & Substance use: Smoking Status Former smoker alcohol intake former alcohol intake frequency 3 or more drinks per day Substance Use Type marijuana Meds Home Medications and Allergies Home Medications Medication Instructions Recorded Confirmed Type aspirin 81 mg PO DAILY #0 12/25/10 04/05/19 History hydrochlorothiazide 25 mg PO QDAY #90 tab 06/28/17 04/05/19 Rx nifedipine 30 mg tablet,extended 30 mg PO QDAY #90 tab 07/04/18 04/05/19 Rx release fluticasone propionate 1 spray INTRANASAL QDAYP PRN #16 gm 07/10/18 04/05/19 Rx metoprolol tartrate 50 mg tablet 50 mg PO BID #180 tab 09/17/18 04/05/19 Rx atorvastatin 10 mg PO BEDTIME 04/05/19 04/05/19 History potassium chloride 60 meq PO BEDTIME 04/05/19 04/05/19 History potassium chloride [Klor-Con M20] 80 meq PO DAILY 04/05/19 04/05/19 History Allergies Allergy/AdvReac Type Severity Reaction Status Date / Time No Known Drug Allergies Allergy Unverified 04/05/19 10:31 Review of Systems Review of Systems Narrative: Review of systems not terribly contributory. Patient has no recollection of the last several days ROS Unobtainable: unobtainable due to mental status Exam Vital Signs (past 8 hours): - 04/05/19 10:26 04/05/19 11:34 04/05/19 12:08 Temperature 95.1 F L 98.2 F Pulse Rate 72 81 Respiratory Rate 18 16 Blood Pressure 147/74 H Blood Pressure [Left Arm] 139/53 L Pulse Oximetry 100 100 04/05/19 12:12 04/05/19 13:03 04/05/19 13:35 Temperature 96 F L Pulse Rate 84 102 H 97 H Respiratory Rate 27 H 23 19 Blood Pressure 113/77 Blood Pressure [Left Arm] 120/78 105/58 L Pulse Oximetry 100 99 98 04/05/19 15:39 Temperature 96.7 F L Pulse Rate 96 H Respiratory Rate 18 Blood Pressure 130/61 Blood Pressure [Left Arm] Pulse Oximetry 97 Oxygen Delivery Method Room Air Narrative Exam Narrative: The patient is examined in the ICU bed resting quietly appears in no distress he recognizes me immediately as a walk in the door and said ?jeromy Garcia?. Gen.: [] Otherwise he appears usual self Skin: [Warm well perfused. No prominent lesions. Nonicteric]. HEENT: PERRL., [normal EOM, external ears canals TMs normal, nasal mucosa normal and midline septum, oropharynx without lesions.] Neck: [Trachea midline. Thyroid nontender and not enlarged. Carotids without bruits. No lymphadenopathy] Back: [No obvious deformity or tenderness]. Chest: [Clear to P&A. Symmetric]. CV: [RRR no murmur or gallop. No JVD]. Abdomen: [No masses bruits tenderness or visceromegaly]. Neuro: [Cranial nerves II through XII grossly intact. Sensory and motor exams intact. Gait normal.] Mental status: [Intact for screening] Extremities: [No cyanosis clubbing or edema] Musculoskeletal: [No gross deformities] Lymphatics: [Negative for lymphadenopathy, supraclavicular axillary or inguinal] Skin exam finds no obvious bruising. He has a trace amount of edema in lower extremities with some chronic stasis changes pigmentation of his lower extremities calves are nontender His neurologic exam cranial nerves 2-12 are intact. Finger-nose normal. Strength and sensation of the upper and lower extremities are normal and symmetric. Mental status he knew today's [facility]. [facility]. Pre sident [facility] Objective Labs Result Diagrams: 04/05/19 10:10 04/05/19 10:10 Labs: Laboratory Results - last 24 hr 04/05/19 04/05/19 04/05/19 10:10 10:10 10:10 WBC 8.7 RBC 3.91 L Hgb 13.0 L Hct 37.4 L MCV 95.6 MCH 33.3 MCHC 34.8 RDW 12.8 Plt Count 219 Neut % (Auto) 82.1 H Lymph % (Auto) 6.1 L [place] % (Auto) 11.6 Eos % (Auto) 0.0 L Baso % (Auto) 0.2 Neut # (Auto) 7100 H Lymph # (Auto) 500 L [place] # (Auto) 1000 H Eos # (Auto) 0 Baso # (Auto) 0 PT 12.6 INR 1.1 APTT 38 H Sodium 123 L Potassium 5.8 H Chloride 88 L Carbon Dioxide 12 L BUN 54 H Creatinine 3.60 H Estimated GFR 16.7 L BUN/Creatinine Ratio 15.0 Glucose 102 Lactate Calcium 9.6 Total Bilirubin 2.0 H AST 193 H ALT 48 Alkaline Phosphatase 90 Ammonia Total Creatine Kinase 4435 H CK-MB (CK-2) 89.20 H CK-MB (CK-2) Rel Index 2.0 Troponin I 0.040 H Total Protein 8.2 Albumin 4.9 Globulin 3.3 Albumin/Globulin Ratio 1.5 Procalcitonin TSH Prolactin 4.2 Urine Color Urine Appearance Urine pH Ur Specific [place] Urine Protein Urine Glucose (UA) Urine Ketones Urine Occult Blood Urine Nitrate Urine Bilirubin Urine Urobilinogen Ur Leukocyte Esterase Urine RBC Urine WBC Urine Bacteria Ur Culture Indicated? Nasal Screen MRSA (PCR) U Morph 300 ng/mL cutoff Ur Oxycodone Screen Urine Methadone Screen Ur Barbiturates Screen U Tricyclic Antidepress Ur Phencyclidine Scrn Ur Amphetamines Screen U Methamphetamines Scrn Ur MDMA Scrn (Ecstasy) U Benzodiazepines Scrn Urine Cocaine Screen U Marijuana (THC) Screen Ethyl Alcohol < 10 Blood Type Antibody Screen 04/05/19 04/05/19 04/05/19 10:10 10:10 10:10 WBC RBC Hgb Hct MCV MCH MCHC RDW Plt Count Neut % (Auto) Lymph % (Auto) [place] % (Auto) Eos % (Auto) Baso % (Auto) Neut # (Auto) Lymph # (Auto) [place] # (Auto) Eos # (Auto) Baso # (Auto) PT INR APTT Sodium Potassium Chloride Carbon Dioxide BUN Creatinine Estimated GFR BUN/Creatinine Ratio Glucose Lactate Calcium Total Bilirubin AST ALT Alkaline Phosphatase Ammonia Total Creatine Kinase Cancelled CK-MB (CK-2) Cancelled CK-MB (CK-2) Rel Index Cancelled Troponin I Cancelled Total Protein Albumin Globulin Albumin/Globulin Ratio Procalcitonin 0.70 H TSH 1.31 Prolactin Cancelled Urine Color Urine Appearance Urine pH Ur Specific [place] Urine Protein Urine Glucose (UA) Urine Ketones Urine Occult Blood Urine Nitrate Urine Bilirubin Urine Urobilinogen Ur Leukocyte Esterase Urine RBC Urine WBC Urine Bacteria Ur Culture Indicated? Nasal Screen MRSA (PCR) U Morph 300 ng/mL cutoff Ur Oxycodone Screen Urine Methadone Screen Ur Barbiturates Screen U Tricyclic Antidepress Ur Phencyclidine Scrn Ur Amphetamines Screen U Methamphetamines Scrn Ur MDMA Scrn (Ecstasy) U Benzodiazepines Scrn Urine Cocaine Screen U Marijuana (THC) Screen Ethyl Alcohol Blood Type Antibody Screen 04/05/19 04/05/19 04/05/19 10:15 10:15 10:15 WBC RBC Hgb Hct MCV MCH MCHC RDW Plt Count Neut % (Auto) Lymph % (Auto) [place] % (Auto) Eos % (Auto) Baso % (Auto) Neut # (Auto) Lymph # (Auto) [place] # (Auto) Eos # (Auto) Baso # (Auto) PT INR APTT Sodium Potassium Chloride Carbon Dioxide BUN Creatinine Estimated GFR BUN/Creatinine Ratio Glucose Lactate 2.8 H Calcium Total Bilirubin AST ALT Alkaline Phosphatase Ammonia < 9.0 L Total Creatine Kinase CK-MB (CK-2) CK-MB (CK-2) Rel Index Troponin I Total Protein Albumin Globulin Albumin/Globulin Ratio Procalcitonin TSH Prolactin Urine Color Urine Appearance Urine pH Ur Specific [place] Urine Protein Urine Glucose (UA) Urine Ketones Urine Occult Blood Urine Nitrate Urine Bilirubin Urine Urobilinogen Ur Leukocyte Esterase Urine RBC Urine WBC Urine Bacteria Ur Culture Indicated? Nasal Screen MRSA (PCR) U Morph 300 ng/mL cutoff Ur Oxycodone Screen Urine Methadone Screen Ur Barbiturates Screen U Tricyclic Antidepress Ur Phencyclidine Scrn Ur Amphetamines Screen U Methamphetamines Scrn Ur MDMA Scrn (Ecstasy) U Benzodiazepines Scrn Urine Cocaine Screen U Marijuana (THC) Screen Ethyl Alcohol Blood Type O Positive Antibody Screen Negative 04/05/19 04/05/19 04/05/19 12:07 12:07 13:36 WBC RBC Hgb Hct MCV MCH MCHC RDW Plt Count Neut % (Auto) Lymph % (Auto) [place] % (Auto) Eos % (Auto) Baso % (Auto) Neut # (Auto) Lymph # (Auto) [place] # (Auto) Eos # (Auto) Baso # (Auto) PT INR APTT Sodium Potassium Chloride Carbon Dioxide BUN Creatinine Estimated GFR BUN/Creatinine Ratio Glucose Lactate 1.9 Calcium Total Bilirubin AST ALT Alkaline Phosphatase Ammonia Total Creatine Kinase CK-MB (CK-2) CK-MB (CK-2) Rel Index Troponin I Total Protein Albumin Globulin Albumin/Globulin Ratio Procalcitonin TSH Prolactin Urine Color Yellow Urine Appearance Clear Urine pH 5.5 Ur Specific [place] <=1.005 Urine Protein Negative Urine Glucose (UA) Negative Urine Ketones Negative Urine Occult Blood 2+ H Urine Nitrate Negative Urine Bilirubin Negative Urine Urobilinogen 0.2 Ur Leukocyte Esterase Negative Urine RBC 0-1/hpf Urine WBC 0-1/hpf Urine Bacteria None seen Ur Culture Indicated? Cult not indicated Nasal Screen MRSA (PCR) U Morph 300 ng/mL cutoff Negative Ur Oxycodone Screen Negative Urine Methadone Screen Negative Ur Barbiturates Screen Negative U Tricyclic Antidepress Negative Ur Phencyclidine Scrn Negative Ur Amphetamines Screen Negative U Methamphetamines Scrn Negative Ur MDMA Scrn (Ecstasy) Negative U Benzodiazepines Scrn Negative Urine Cocaine Screen Negative U Marijuana (THC) Screen Negative Ethyl Alcohol Blood Type Antibody Screen 04/05/19 04/05/19 04/05/19 13:36 13:36 13:36 WBC RBC Hgb Hct MCV MCH MCHC RDW Plt Count Neut % (Auto) Lymph % (Auto) [place] % (Auto) Eos % (Auto) Baso % (Auto) Neut # (Auto) Lymph # (Auto) [place] # (Auto) Eos # (Auto) Baso # (Auto) PT INR APTT Sodium Potassium Chloride Carbon Dioxide BUN Creatinine Estimated GFR BUN/Creatinine Ratio Glucose Lactate Cancelled Calcium Total Bilirubin AST ALT Alkaline Phosphatase Ammonia Total Creatine Kinase 4447 H CK-MB (CK-2) CK-MB (CK-2) Rel Index Troponin I 0.033 Total Protein Albumin Globulin Albumin/Globulin Ratio Procalcitonin 0.39 TSH Prolactin Urine Color Urine Appearance Urine pH Ur Specific [place] Urine Protein Urine Glucose (UA) Urine Ketones Urine Occult Blood Urine Nitrate Urine Bilirubin Urine Urobilinogen Ur Leukocyte Esterase Urine RBC Urine WBC Urine Bacteria Ur Culture Indicated? Nasal Screen MRSA (PCR) U Morph 300 ng/mL cutoff Ur Oxycodone Screen Urine Methadone Screen Ur Barbiturates Screen U Tricyclic Antidepress Ur Phencyclidine Scrn Ur Amphetamines Screen U Methamphetamines Scrn Ur MDMA Scrn (Ecstasy) U Benzodiazepines Scrn Urine Cocaine Screen U Marijuana (THC) Screen Ethyl Alcohol Blood Type Antibody Screen 04/05/19 13:40 WBC RBC Hgb Hct MCV MCH MCHC RDW Plt Count Neut % (Auto) Lymph % (Auto) [place] % (Auto) Eos % (Auto) Baso % (Auto) Neut # (Auto) Lymph # (Auto) [place] # (Auto) Eos # (Auto) Baso # (Auto) PT INR APTT Sodium Potassium Chloride Carbon Dioxide BUN Creatinine Estimated GFR BUN/Creatinine Ratio Glucose Lactate Calcium Total Bilirubin AST ALT Alkaline Phosphatase Ammonia Total Creatine Kinase CK-MB (CK-2) CK-MB (CK-2) Rel Index Troponin I Total Protein Albumin Globulin Albumin/Globulin Ratio Procalcitonin TSH Prolactin Urine Color Urine Appearance Urine pH Ur Specific [place] Urine Protein Urine Glucose (UA) Urine Ketones Urine Occult Blood Urine Nitrate Urine Bilirubin Urine Urobilinogen Ur Leukocyte Esterase Urine RBC Urine WBC Urine Bacteria Ur Culture Indicated? Nasal Screen MRSA (PCR) Negative for mrsa U Morph 300 ng/mL cutoff Ur Oxycodone Screen Urine Methadone Screen Ur Barbiturates Screen U Tricyclic Antidepress Ur Phencyclidine Scrn Ur Amphetamines Screen U Methamphetamines Scrn Ur MDMA Scrn (Ecstasy) U Benzodiazepines Scrn Urine Cocaine Screen U Marijuana (THC) Screen Ethyl Alcohol Blood Type Antibody Screen Labs reviewed as above. Of significance are normal white blood cell count, elevated creatinine, elevated CK, decreased sodium, increased potassium, increased procalcitonin, increased lactate, increased troponin. Head CT was unremarkable. EKG had some nonspecific ST changes laterally Assessment & Plan Assessment & Plan narrative: 1. Patient with altered mental status no obvious explanation. Patient also path found down on the ground as apartment obviously had been down for several hours no obvious the etiology. Issues at hand could well be alcohol withdrawal, hyponatremia, sepsis, CVA, seizure,. Of these the lactate and procalcitonin have have decreased with making sepsis less likely. His troponin is decreased making acute myocardial infarction less likely. MRI was done that showed a questionable parietal stroke did indeed show a pituitary mass that needs further workup. 2. Patient with rhabdomyolysis elevated CK consistent with him being on the ground for several hours. He additionally was on a statin which may contribute to this. He will be hydrated with anticipation of her resolution of this problem over the next several days. 3. Acute kidney injury also felt perhaps secondary to the rhabdomyolysis perhaps has dehydration contribute to this. He will be receiving hydration and monitoring of his renal function anticipating resolution of this as time goes on. 4. Hyponatremia may remain to be contributing factor may be an etiology presumably from his hydrochlorothiazide and perhaps from his alcohol use it. 5. History of persistent hypokalemia now with hyperkalemia presumably due to his renal insufficiency. 6. Elevated lactate and procalcitonin both of which have decreased presumably a initially abnormalities are secondary to his dehydration and acute kidney injury. Nothing further will be done referable to this no evidence for infection based on the current data. 7. Slightly elevated troponin in ER that is decreased. Again likely to be from his primary problem. Echocardiogram will be done to close the loop. 8. Questionable abnormality on his MRI questionable parietal stroke. Recommendation is to repeat MRI with without contrast this to be done over the weekend. 9. Questionable pituitary mass also to be evaluated with repeat MRI stated a colton. 10. History of hypertension will withhold medication for the time being. 11. History of hyperlipidemia again will withhold medication. 12. Patient will likely be here several days requiring intravenous fluid for resolution of his rhabdomyolysis and his acute kidney injury. 13. Dr. Wakefield is on-call for [facility]. Dr. Mason is on-call for the weekend. Quality VTE Deep Vein Thrombosis/Pulmonary Embolism Present on Admission: No
[2019-04-06] VITALS (9 sets, daily range): BP systolic 97–113; BP diastolic 48–62; PULSE 84–93; RESP 15–18; TEMP 36.1–36.7; O2SAT 94–100
[2019-04-06] MEDS: SODIUM CHLORIDE 0.9% 1,000 ML 200 ML IV ×2 (00:17→05:15)
[2019-04-06 05:33] LABS: BUN Creatinine Ratio 25.7 (6-22); Blood Urea Nitrogen 36 mg/dL (9-20); Calcium 7.9 mg/dL (8.4-10.2); Carbon Dioxide 15 mmol/L (22-32); Chloride 100 mmol/L (98-107); Estimated Glomerular Filt Rate 49.7 mL/min (>60); Glucose 55 mg/dL (80-110); HEMOLYSIS < 15 (0-50); Potassium 4.2 mmol/L (3.4-5.1); Sodium 130 mmol/L (137-145)
[2019-04-06 05:38] LABS: Creatine Kinase 2387 U/L (55-170)
--- NOTE | 2019-04-06 08:15 | P.PN_ITS ---
Subjective Subjective Date Patient Seen: 04/06/19 Time Patient Seen: 08:15 Interval history: Patient discussed with Dr. Yanez yesterday evening Found down at home for an unknown period of time semiconscious. Found to be in acute renal failure with rhabdomyolysis and some minor electrolyte abnormalities upon admission. Neurologic workup unremarkable. Basically workup has been unremarkable Concern has been for perhaps alcohol-related issues and his weakness verses hyponatremia verses some other unknown event This morning patient is awake and alert really has no recollection of what happened to him. He is repeating stories he has been told but really doesn't seem to recall anything beyond sort of waking up in the hospital Denies any pain although does says he has some bruising No chest pain. No trouble breathing. Not really hungry and no real complaints Has not been up out of bed Exam Vital Signs (past 8 hours): - 04/06/19 02:00 04/06/19 02:08 04/06/19 04:00 Temperature 97.0 F L Pulse Rate 86 87 87 Respiratory Rate 15 18 17 Blood Pressure 111/62 111/62 108/58 L Pulse Oximetry 100 100 99 04/06/19 06:00 Temperature Pulse Rate 84 Respiratory Rate 16 Blood Pressure 100/58 L Pulse Oximetry 99 Oxygen Delivery Method Room Air Oxygen Flow Rate 0 Narrative Exam Narrative: HEENT-unremarkable Lungs-clear with good breath sounds Heart-regular rate and rhythm no murmur or gallop Abdomen-benign Objective Labs Result Diagrams: 04/05/19 10:10 04/06/19 04:40 Labs: Laboratory Results - last 24 hr 04/05/19 04/05/19 04/05/19 10:10 10:10 10:10 WBC 8.7 RBC 3.91 L Hgb 13.0 L Hct 37.4 L MCV 95.6 MCH 33.3 MCHC 34.8 RDW 12.8 Plt Count 219 Neut % (Auto) 82.1 H Lymph % (Auto) 6.1 L [place] % (Auto) 11.6 Eos % (Auto) 0.0 L Baso % (Auto) 0.2 Neut # (Auto) 7100 H Lymph # (Auto) 500 L [place] # (Auto) 1000 H Eos # (Auto) 0 Baso # (Auto) 0 PT 12.6 INR 1.1 APTT 38 H Sodium 123 L Potassium 5.8 H Chloride 88 L Carbon Dioxide 12 L BUN 54 H Creatinine 3.60 H Estimated GFR 16.7 L BUN/Creatinine Ratio 15.0 Glucose 102 Lactate Calcium 9.6 Total Bilirubin 2.0 H AST 193 H ALT 48 Alkaline Phosphatase 90 Ammonia Total Creatine Kinase 4435 H CK-MB (CK-2) 89.20 H CK-MB (CK-2) Rel Index 2.0 Troponin I 0.040 H Total Protein 8.2 Albumin 4.9 Globulin 3.3 Albumin/Globulin Ratio 1.5 Procalcitonin TSH Prolactin 4.2 Urine Color Urine Appearance Urine pH Ur Specific [place] Urine Protein Urine Glucose (UA) Urine Ketones Urine Occult Blood Urine Nitrate Urine Bilirubin Urine Urobilinogen Ur Leukocyte Esterase Urine RBC Urine WBC Urine Bacteria Ur Culture Indicated? Nasal Screen MRSA (PCR) U Morph 300 ng/mL cutoff Ur Oxycodone Screen Urine Methadone Screen Ur Barbiturates Screen U Tricyclic Antidepress Ur Phencyclidine Scrn Ur Amphetamines Screen U Methamphetamines Scrn Ur MDMA Scrn (Ecstasy) U Benzodiazepines Scrn Urine Cocaine Screen U Marijuana (THC) Screen Ethyl Alcohol < 10 Blood Type Antibody Screen 04/05/19 04/05/19 04/05/19 10:10 10:10 10:10 WBC RBC Hgb Hct MCV MCH MCHC RDW Plt Count Neut % (Auto) Lymph % (Auto) [place] % (Auto) Eos % (Auto) Baso % (Auto) Neut # (Auto) Lymph # (Auto) [place] # (Auto) Eos # (Auto) Baso # (Auto) PT INR APTT Sodium Potassium Chloride Carbon Dioxide BUN Creatinine Estimated GFR BUN/Creatinine Ratio Glucose Lactate Calcium Total Bilirubin AST ALT Alkaline Phosphatase Ammonia Total Creatine Kinase Cancelled CK-MB (CK-2) Cancelled CK-MB (CK-2) Rel Index Cancelled Troponin I Cancelled Total Protein Albumin Globulin Albumin/Globulin Ratio Procalcitonin 0.70 H TSH 1.31 Prolactin Cancelled Urine Color Urine Appearance Urine pH Ur Specific [place] Urine Protein Urine Glucose (UA) Urine Ketones Urine Occult Blood Urine Nitrate Urine Bilirubin Urine Urobilinogen Ur Leukocyte Esterase Urine RBC Urine WBC Urine Bacteria Ur Culture Indicated? Nasal Screen MRSA (PCR) U Morph 300 ng/mL cutoff Ur Oxycodone Screen Urine Methadone Screen Ur Barbiturates Screen U Tricyclic Antidepress Ur Phencyclidine Scrn Ur Amphetamines Screen U Methamphetamines Scrn Ur MDMA Scrn (Ecstasy) U Benzodiazepines Scrn Urine Cocaine Screen U Marijuana (THC) Screen Ethyl Alcohol Blood Type Antibody Screen 04/05/19 04/05/19 04/05/19 10:15 10:15 10:15 WBC RBC Hgb Hct MCV MCH MCHC RDW Plt Count Neut % (Auto) Lymph % (Auto) [place] % (Auto) Eos % (Auto) Baso % (Auto) Neut # (Auto) Lymph # (Auto) [place] # (Auto) Eos # (Auto) Baso # (Auto) PT INR APTT Sodium Potassium Chloride Carbon Dioxide BUN Creatinine Estimated GFR BUN/Creatinine Ratio Glucose Lactate 2.8 H Calcium Total Bilirubin AST ALT Alkaline Phosphatase Ammonia < 9.0 L Total Creatine Kinase CK-MB (CK-2) CK-MB (CK-2) Rel Index Troponin I Total Protein Albumin Globulin Albumin/Globulin Ratio Procalcitonin TSH Prolactin Urine Color Urine Appearance Urine pH Ur Specific [place] Urine Protein Urine Glucose (UA) Urine Ketones Urine Occult Blood Urine Nitrate Urine Bilirubin Urine Urobilinogen Ur Leukocyte Esterase Urine RBC Urine WBC Urine Bacteria Ur Culture Indicated? Nasal Screen MRSA (PCR) U Morph 300 ng/mL cutoff Ur Oxycodone Screen Urine Methadone Screen Ur Barbiturates Screen U Tricyclic Antidepress Ur Phencyclidine Scrn Ur Amphetamines Screen U Methamphetamines Scrn Ur MDMA Scrn (Ecstasy) U Benzodiazepines Scrn Urine Cocaine Screen U Marijuana (THC) Screen Ethyl Alcohol Blood Type O Positive Antibody Screen Negative 04/05/19 04/05/19 04/05/19 12:07 12:07 13:36 WBC RBC Hgb Hct MCV MCH MCHC RDW Plt Count Neut % (Auto) Lymph % (Auto) [place] % (Auto) Eos % (Auto) Baso % (Auto) Neut # (Auto) Lymph # (Auto) [place] # (Auto) Eos # (Auto) Baso # (Auto) PT INR APTT Sodium Potassium Chloride Carbon Dioxide BUN Creatinine Estimated GFR BUN/Creatinine Ratio Glucose Lactate 1.9 Calcium Total Bilirubin AST ALT Alkaline Phosphatase Ammonia Total Creatine Kinase CK-MB (CK-2) CK-MB (CK-2) Rel Index Troponin I Total Protein Albumin Globulin Albumin/Globulin Ratio Procalcitonin TSH Prolactin Urine Color Yellow Urine Appearance Clear Urine pH 5.5 Ur Specific [place] <=1.005 Urine Protein Negative Urine Glucose (UA) Negative Urine Ketones Negative Urine Occult Blood 2+ H Urine Nitrate Negative Urine Bilirubin Negative Urine Urobilinogen 0.2 Ur Leukocyte Esterase Negative Urine RBC 0-1/hpf Urine WBC 0-1/hpf Urine Bacteria None seen Ur Culture Indicated? Cult not indicated Nasal Screen MRSA (PCR) U Morph 300 ng/mL cutoff Negative Ur Oxycodone Screen Negative Urine Methadone Screen Negative Ur Barbiturates Screen Negative U Tricyclic Antidepress Negative Ur Phencyclidine Scrn Negative Ur Amphetamines Screen Negative U Methamphetamines Scrn Negative Ur MDMA Scrn (Ecstasy) Negative U Benzodiazepines Scrn Negative Urine Cocaine Screen Negative U Marijuana (THC) Screen Negative Ethyl Alcohol Blood Type Antibody Screen 04/05/19 04/05/19 04/05/19 13:36 13:36 13:36 WBC RBC Hgb Hct MCV MCH MCHC RDW Plt Count Neut % (Auto) Lymph % (Auto) [place] % (Auto) Eos % (Auto) Baso % (Auto) Neut # (Auto) Lymph # (Auto) [place] # (Auto) Eos # (Auto) Baso # (Auto) PT INR APTT Sodium Potassium Chloride Carbon Dioxide BUN Creatinine Estimated GFR BUN/Creatinine Ratio Glucose Lactate Cancelled Calcium Total Bilirubin AST ALT Alkaline Phosphatase Ammonia Total Creatine Kinase 4447 H CK-MB (CK-2) CK-MB (CK-2) Rel Index Troponin I 0.033 Total Protein Albumin Globulin Albumin/Globulin Ratio Procalcitonin 0.39 TSH Prolactin Urine Color Urine Appearance Urine pH Ur Specific [place] Urine Protein Urine Glucose (UA) Urine Ketones Urine Occult Blood Urine Nitrate Urine Bilirubin Urine Urobilinogen Ur Leukocyte Esterase Urine RBC Urine WBC Urine Bacteria Ur Culture Indicated? Nasal Screen MRSA (PCR) U Morph 300 ng/mL cutoff Ur Oxycodone Screen Urine Methadone Screen Ur Barbiturates Screen U Tricyclic Antidepress Ur Phencyclidine Scrn Ur Amphetamines Screen U Methamphetamines Scrn Ur MDMA Scrn (Ecstasy) U Benzodiazepines Scrn Urine Cocaine Screen U Marijuana (THC) Screen Ethyl Alcohol Blood Type Antibody Screen 04/05/19 04/06/19 13:40 04:40 WBC RBC Hgb Hct MCV MCH MCHC RDW Plt Count Neut % (Auto) Lymph % (Auto) [place] % (Auto) Eos % (Auto) Baso % (Auto) Neut # (Auto) Lymph # (Auto) [place] # (Auto) Eos # (Auto) Baso # (Auto) PT INR APTT Sodium 130 L Potassium 4.2 D Chloride 100 Carbon Dioxide 15 L BUN 36 H Creatinine 1.40 H Estimated GFR 49.7 L BUN/Creatinine Ratio 25.7 H Glucose 55 L Lactate Calcium 7.9 L Total Bilirubin AST ALT Alkaline Phosphatase Ammonia Total Creatine Kinase 2387 H D CK-MB (CK-2) CK-MB (CK-2) Rel Index Troponin I Total Protein Albumin Globulin Albumin/Globulin Ratio Procalcitonin TSH Prolactin Urine Color Urine Appearance Urine pH Ur Specific [place] Urine Protein Urine Glucose (UA) Urine Ketones Urine Occult Blood Urine Nitrate Urine Bilirubin Urine Urobilinogen Ur Leukocyte Esterase Urine RBC Urine WBC Urine Bacteria Ur Culture Indicated? Nasal Screen MRSA (PCR) Negative for mrsa U Morph 300 ng/mL cutoff Ur Oxycodone Screen Urine Methadone Screen Ur Barbiturates Screen U Tricyclic Antidepress Ur Phencyclidine Scrn Ur Amphetamines Screen U Methamphetamines Scrn Ur MDMA Scrn (Ecstasy) U Benzodiazepines Scrn Urine Cocaine Screen U Marijuana (THC) Screen Ethyl Alcohol Blood Type Antibody Screen Assessment & Plan Assessment & Plan narrative: 1. Acute kidney injury-patient's renal function much improved although still not back to baseline. I'm going to reduce his IV fluid intake but continue with relatively vigorous IV fluid resuscitation. His creatinine kinase is also 1/2 of what it was yesterday. That will continue to diminished but I think we need to continue with monitoring and vigorous urine production until CK is less than a 1000 Patient's electrolytes are also improved. Potassium now normal and sodium much closer to normal. Patient will remain off his thiazide diuretic for now. 2. Hypotension-patient modestly hypotensive with blood pressure near 100 systolic his antihypertensive therapy including his beta-tyrone for now given that he has not yet tachycardic. 3. Cardiac-patient with borderline enzyme elevations yesterday likely secondary to his elevated CK and or his acute kidney injury. Minor changes on ECG however. Plan to repeat ECG this morning and echo is still pending (as it was ordered late in the afternoon and not ordered stat it will be done later today) 4. Syncope-no e etiology For syncope at this point. No evidence of cardiac dysrhythmia. Continue telemetry through the day but can likely be discontinued tomorrow. Wonder whether it was a [employer] event versus some sort of alcohol withdrawal or seizure versus other. Continue to monitor carefully looking for evidence of alcohol withdrawal and or seizure activity as well as reassess his neurologic status 5. Weakness-will have Physical therapy see him a get him up out of bed 6. Hypertension-patient hypotensive anything will hold his antihypertensive meds as above 7. Diabetes-patient carries a diagnosis of type 2 diabetes but has had only normal hemoglobin A1cs at [facility], is not on any medication, is not follow a diabetic diet, etcetera. Will monitor his numbers here for now, but wi ll not specifically be treating diabetes and the diagnosis seems questionable at least. Quality VTE Deep Vein Thrombosis/Pulmonary Embolism Present on Admission: No
[2019-04-06] MEDS: SODIUM CHLORIDE 0.45% 1,000 ML 100 ML IV ×2 (09:45→20:25)
[2019-04-06] MEDS: ENOXAPARIN 40 MG/0.4 ML SYRINGE SUBCUT (10:43)
[2019-04-06] MEDS: ASPIRIN EC 81 MG TABLET PO (10:43)
--- NOTE | 2019-04-06 13:01 | PT.IIE ---
Medical History (Last Reviewed 04/05/19 @ 17:05 by Nolberto Yanez MD) Dyslipidemia (Acute) Hypertension (Acute) Physical Therapy Inpatient Evaluation/Re-Eval M1 PT/OT-IP Prior Functional Status Start: 04/06/19 11:52 Freq: NEEDED Status: Active Protocol: Document 04/06/19 11:16 DCW (Rec: 04/06/19 13:01 DC [id number]) Medical Review Prior Functional Status Medical History Reviewed Yes Social History Household Members none Living Arrangements House Number of Floors (Floors) One Floor Number of Stairs To Enter/Railing? 0 M2 PT-IP Current Condition Start: 04/06/19 11:52 Freq: NEEDED Status: Active Protocol: Document 04/06/19 11:16 DCW (Rec: 04/06/19 13:01 [facility] [id number]) Physical Therapy Current Condition Current Condition Evaluation Date 04/06/19 Treatment Diagnosis Weakness, ETOH withdraw Onset Date 04/05/19 Weight Bearing Status Weight Bearing Status Full Weight Bearing M3 PT-IP Subjective Start: 04/06/19 11:52 Freq: NEEDED Status: Active Protocol: Document 04/06/19 11:16 DCW (Rec: 04/06/19 13:01 [facility] [id number]) Subjective Physical Therapy Visit Type Type Initial Evaluation Visit Start Time 11:16 Visit Stop Time 11:48 Total Visit Minutes 32 Physical Therapy Visit Comments Patient Comments I'm not having any real pain, I'm kind of shakey though. I guess that's the alcohol withdraw. Therapy Pain Assessment Pain When Pain Assessed During Mobility Pain Present Pain Present Pain Reported Location Right Upper Leg Intensity 6 Scale Used [place]-Forde (Faces) Pain Behaviors Facial Grimacing,Guarding, Holding Area,Wincing Pain Management Techniques Re-positioning M4 PT-IP Mobility and Gait Start: 04/06/19 11:52 Freq: NEEDED Status: Active Protocol: Document 04/06/19 11:16 DCW (Rec: 04/06/19 13:01 [facility] [id number]) PT-Transfer Assessment Sit to and From Stand Sit to and from Stand Minimal Assistance Equipment Transfer Assistive Device Gait Belt,Front Wheeled Walker Comments Mobility Comments While pt was in chair, BP measured at 106/66, declined upon standing to 76/44. Pt returned to chair, BP recovered to 108/63. Upon standing again, dropped to 85/ 53 M5 PT-IP Objective Assessments Start: 04/06/19 11:52 Freq: NEEDED Status: Active Protocol: Document 04/06/19 11:16 DCW (Rec: 04/06/19 13:01 [facility] [id number]) Orientation Orientation/Cognition Level of Alertness Alert Orientation Name,Birthday,Month,Date,Year, Place,Situation Language Function Ability No Deficits Noted Safety Awareness Understands Safety Issues Memory Description Short Term Impaired Comments Pt unable to remember most of the few days prior to admission Gross Range of Motion Lower Extremity ROM Assessment Bilaterally Impaired Impairments Limited due to weakness and R hip pain Strength Lower Extremity Strength Assessment Bilaterally Impaired Hip 3-/5 Knee 4-/5 Comments Strength Comments Pt hip MMT limited due to R hip pain when pt attempted to move leg. Pt unable to flex either hip against gravity. Coordination Assessment Assessment Coordination Comments Pt displays tremor with all activity. M6 PT-IP Treatment Start: 04/06/19 11:52 Freq: NEEDED Status: Active Protocol: Document 04/06/19 11:16 DCW (Rec: 04/06/19 13:01 [facility] [id number]) Physical Therapy Treatment Other Treatments Other Treatment Performed Ankle pumps, LAQ, seated marching M7 PT-IP Assessment and Plan Start: 04/06/19 11:52 Freq: NEEDED Status: Active Protocol: Document 04/06/19 11:16 DCW (Rec: 04/06/19 13:01 [facility] [id number]) PT Summary Assessment and Plan Potential Rehabilitation Potential Fair Status of Condition at Evaluation Unstable Summary Impairments Strength,Transfers,Gait, Activity Tolerance Assessment Summary Pt in recliner upon therapist entering the room, agreeable to PT evaluation. Pt displayed significant hip weakness, unable to flex hips against gravity, and complaining of right hip pain with any attempts at movement. Pt gait and standing balance unable to be truly assessed due to substantial drop in blood pressure, with a sit->stand transition causing a drop from 106/66 to 76/44, and then upon a retry, dropping from 108/63 to 85/53. Pt not safe to mobilize at this time, and should only transfer bed<-> chair<->BSC. Pt shold benefit from skilled therapy for strengthening, transfer training, gait and balance training, however blood pressure will likely need to be better controlled prior to this occurring. May need discharge to SNF rehab at this point, however may change pending patient improvement Goals Bed Mobility Goal Independent Transfer Goal Independent Gait Goal Standby Assistance Gait Distance 100 Days to Meet Goals 4 Frequency of Treatment Frequency Of Treatment Once a Day Treatment Plan Physical Therapy Treatment Plan Transfer Training,Gait Training,Therapeutic Exercise, Balance Retraining, Neuromuscular Re-ed Recommendations To Nursing Amount of Assist Needed 1 Person Assist Discharge Recommendations PT Discharge Recommendations Home Health,SNF Rehab
--- NOTE | 2019-04-06 16:54 | CM.DPNOTE ---
technology lab teacher attempted to meet with pt for initial d/c planning assessment, however he was deep asleep. Unable to compete this shift.
[2019-04-06] MEDS: ATORVASTATIN 10 MG TABLET PO (20:24)
[2019-04-06] MEDS: ACETAMINOPHEN 325 MG TABLET 650 MG PO (21:13)
[2019-04-07] VITALS (7 sets, daily range): BP systolic 93–112; BP diastolic 47–65; PULSE 81–89; RESP 16–18; TEMP 36.2–37.6; O2SAT 97–100
[2019-04-07] MEDS: ACETAMINOPHEN 325 MG TABLET 650 MG PO ×3 (03:08→17:14)
[2019-04-07 05:30] LABS: Add Manual Diff / Slide Review NO; Basophils Absolute Auto 0 /uL (0-100); Basophils Percent Auto 0.4 % (0-2); Eosinophils Absolute Auto 0 /uL (0-450); Eosinophils Percent Auto 0.7 % (2-4); Hematocrit 25.8 % (41-53); Hemoglobin 9.3 g/dL (13.5-17.5); Lymphocytes Absolute Auto 900 /uL (1100-4500); Lymphocytes Percent Auto 23.4 % (25-40); Mean Corpuscular Hemoglobin 33.6 PG (26-34); Mean Corpuscular Volume 93.4 fL (80-100); Monocytes Absolute Auto 500 /uL (0-900); Monocytes Percent Auto 12.7 % (3-14); Neutrophils Absolute Auto 2500 /uL (1500-7000); Neutrophils Percent Auto 62.8 % (50-75); Platelet Count 123 X10^3/uL (150-400); Red Blood Cell Count 2.76 X10^6/uL (4.5-5.9); Red Cell Distribution Width 12.5 % (11.6-14.8)
[2019-04-07 05:42] LABS: Alanine Aminotransferase 41 IU/L (<50); Albumin 2.7 g/dL (3.5-5.0); Albumin Globulin Ratio 1.1 (1.0-2.8); Alkaline Phosphatase 65 U/L (38-126); Aspartate Aminotransferase 167 IU/L (17-59); BUN Creatinine Ratio 23.3 (6-22); Bilirubin Unconjugated 0.8 mg/dL (0.0-1.1); Blood Urea Nitrogen 14 mg/dL (9-20); Calcium 7.5 mg/dL (8.4-10.2); Carbon Dioxide 21 mmol/L (22-32); Chloride 98 mmol/L (98-107); Estimated Glomerular Filt Rate > 60.0 mL/min (>60); Globulin 2.4 g/dL (1.7-4.1); Glucose 84 mg/dL (80-110); HEMOLYSIS < 15 (0-50); Sodium 128 mmol/L (137-145); Total Protein 5.1 g/dL (6.3-8.2)
[2019-04-07 05:43] LABS: Creatine Kinase 1088 U/L (55-170)
[2019-04-07 06:01] LABS: Potassium 2.8 mmol/L (3.4-5.1)
--- NOTE | 2019-04-07 06:17 | PC.NURSE ---
Potassium this morning 2.8, result called to Dr. Hayden Warner. Reviewed other labs. Orders for 40 Krider and a magnesium lab add on.
[2019-04-07 06:28] LABS: Magnesium 1.4 mg/dL (1.6-2.3)
[2019-04-07] MEDS: POTASSIUM CHLORIDE 40 MEQ in SODIUM CHLORIDE 0.9% 500 ML 130 ML IV (06:31)
[2019-04-07] MEDS: ASPIRIN EC 81 MG TABLET PO (08:42)
[2019-04-07] MEDS: ENOXAPARIN 40 MG/0.4 ML SYRINGE SUBCUT (08:42)
[2019-04-07] MEDS: SODIUM CHLORIDE 0.9% FLUSH 10 ML IV (08:43)
[2019-04-07] MEDS: MAGNESIUM SULFATE 2 GM/50 ML PIGGYBACK IV (09:49)
--- NOTE | 2019-04-07 10:30 | DI.RAD.S_ITS ---
PROCEDURE: XR HIP W PEL IF DONE LT MIN 4V INDICATIONS: hip and leg pain TECHNIQUE: AP pelvis with lateral views of each hip. COMPARISON: [facility], CR, XR ACUTE ABDOMEN SERIES, 04/05/2019, 10:29. FINDINGS: Bones: No fractures or dislocations. Pelvic ring appears intact. There is mild axial joint space narrowing in the hips bilaterally. No suspicious bony lesions. Soft tissues: The visualized bowel gas pattern is normal. There are bilateral atherosclerotic vascular calcifications. IMPRESSION: 1. No acute bony abnormality. 2. Mild axial joint space narrowing in the hips. Dictated by: Ray Rasmussen M.D. on 04/07/2019 at 10:20 Approved by: Ray Rasmussen M.D. on 04/07/2019 at 10:22
--- NOTE | 2019-04-07 10:42 | PC.NURSE ---
Addendum entered by Myrna Chester R.N. 04/07/19 13:13: Patient incontinent of stool, guiac negative. Original Note: Patient alert oriented, c/o pain to right thigh, no pain meds given at this time, Dr Mason aware and xray ordered. Patient to chair with SBA. Call light in reach.
--- NOTE | 2019-04-07 10:47 | P.PN_ITS ---
Subjective Subjective Date Patient Seen: 04/07/19 Time Patient Seen: 09:47 Interval history: Patient is sitting up in chair this morning. He is complaining of right-sided thigh pain. He also tells me that he has bruising on his back but that is not as painful as his right thigh. He tells me that this pain was present prior to his falls. We talked about what happened at home any tells me that he had had 5 or 6 falls that he can remember. He does remember standing up out of his chair trying to take a few steps forward and falling backwards. He tells me that he didn't feel drunk. He says that he was unable to keep himself from falling backwards. Tells me that he hit a bookshelf and things went everywhere. Reports drinking 5-6 beers on a daily basis until Tuesday of this week. Thinks this may contributed to some of his falls. He does not endorse chest pain or shortness of breath. He has had a good appetite and tells me that he is eating quite well here. I asked him about the 20 lb weight loss that I see in the chart and he doesn't know what happened. Exam Vital Signs (past 8 hours): - 04/07/19 04:30 04/07/19 08:00 Temperature 99.7 F H 97.6 F Pulse Rate 83 82 Respiratory Rate 18 16 Blood Pressure 93/47 L 112/63 Pulse Oximetry 98 97 Oxygen Delivery Method Room Air Oxygen Flow Rate 0 Narrative Exam Narrative: General: Well-developed, well-nourished, male, no acute distress. Heart: Regular rate and rhythm, no obvious murmurs appreciated Lungs: Clear to auscultation bilaterally, no wheezes, rales or rhonchi Extremities: Warm and well perfused, no edema, stasis dermatitis changes to both lower extremities Neuro: Cranial nerves 2-12 are intact, possible right-sided tongue deviation, he has bilateral lower extremity weakness right greater than left, he is unable to dorsiflex his right foot, he has decreased right upper extremity strength, kimble s pain with any movement of his lower extremities Objective Imaging Echo: Radiologist's impression: Interpretation Summary Normal left ventricle size with ejection fraction 45-50%. Apical anterior wall, apical septum and apex are akinetic. Grade I diastolic dysfunction. The left atrium is severely dilated. Moderate mitral annular calcification. Mild tricuspid regurgitation. Comparison is made with the echocardiogram of 04-02-13, LV function has worsen with new wall motion abnormality. mri-brain: Radiologist's impression: IMPRESSION: 1. Image quality severely degraded by patient motion artifact. 2. Small confluent area of increased T2 signal in the left daniels radiata which may represent chronic microvascular ischemic change, however other etiologies including late subacute/early chronic infarct and less likely low-grade neoplastic process could have a similar appearance. Recommend repeat MRI of the brain with and without contrast would benefit of patient sedation. 3. Pituitary gland mass. Recommend evaluation time of repeat MRI of the brain with and without contrast. CT scan - head: Radiologist's impression: IMPRESSION: 1. No acute process. 2. Bilateral vertebral artery origin stenoses as described above. 3. 50 % right internal carotid artery stenosis. No left internal carotid artery stenosis. 4. 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 Nonemergent pituitary protocol MRI is recommended for further assessment. Any quantitative measurements of stenosis were performed using NASCET criteria. Labs Result Diagrams: 04/07/19 05:00 04/07/19 05:00 Labs: Laboratory Results - last 24 hr 04/07/19 04/07/19 04/07/19 05:00 05:00 05:00 WBC 4.0 L D RBC 2.76 L Hgb 9.3 L Hct 25.8 L MCV 93.4 MCH 33.6 MCHC 36.0 RDW 12.5 Plt Count 123 L Neut % (Auto) 62.8 Lymph % (Auto) 23.4 L [place] % (Auto) 12.7 Eos % (Auto) 0.7 L Baso % (Auto) 0.4 Neut # (Auto) 2500 Lymph # (Auto) 900 L [place] # (Auto) 500 Eos # (Auto) 0 Baso # (Auto) 0 Sodium 128 L Potassium 2.8 L D Chloride 98 Carbon Dioxide 21 L BUN 14 Creatinine 0.60 L Estimated GFR > 60.0 BUN/Creatinine Ratio 23.3 H Glucose 84 Calcium 7.5 L Magnesium Total Bilirubin 1.0 Conjugated Bilirubin 0.0 Unconjugated Bilirubin 0.8 AST 167 H ALT 41 Alkaline Phosphatase 65 Total Creatine Kinase 1088 H D Total Protein 5.1 L Albumin 2.7 L Globulin 2.4 Albumin/Globulin Ratio 1.1 04/07/19 05:00 WBC RBC Hgb Hct MCV MCH MCHC RDW Plt Count Neut % (Auto) Lymph % (Auto) [place] % (Auto) Eos % (Auto) Baso % (Auto) Neut # (Auto) Lymph # (Auto) [place] # (Auto) Eos # (Auto) Baso # (Auto) Sodium Potassium Chloride Carbon Dioxide BUN Creatinine Estimated GFR BUN/Creatinine Ratio Glucose Calcium Magnesium 1.4 L Total Bilirubin Conjugated Bilirubin Unconjugated Bilirubin AST ALT Alkaline Phosphatase Total Creatine Kinase Total Protein Albumin Globulin Albumin/Globulin Ratio Assessment & Plan Assessment & Plan narrative: 1. Acute kidney injury: renal function has returned to baseline. Will stop his IV fluids. 2. Rhabdomyolysis: CK is now about 1000. 3. Electrolytes: low on potassium and magnesium. Calcium corrects with low albumin. Will replete both and recheck this afternoon. I anticipate that he will need ongoing supplementation. 4. Hypotension: improved. Will continue to monitor and hold antihypertensives. 5. Cardiac-patient with borderline enzyme elevations on admission thought likely secondary to his elevated CK and or his acute kidney injury. Minor changes on ECG however. Echo showing reduced EF and wall motion abnormalities consistent with EKG changes. Will consult cardiology. 6. Syncope-CVA, ME and EToh withdrawal all contributors. No evidence of cardiac dysrhythmia. Will discontinue telemetry. Continue to monitor carefully looking for evidence of alcohol withdrawal and or seizure activity as well as reassess his neurologic status 7. Weakness: Left sided pattern consistent with MRI and stroke. Hip/leg pain. Will get xray. 8. Hypertension: patient hypotensive. will hold his antihypertensive meds as above 9. Diabetes: last hgba1c 5.1 not on any medications. Do not anticipate need to blood sugar control while in house. 10. Anemia: Acute on chronic secondary to nutrition? dilutional? Will recheck this afternoon. Check stools. 11. Pituitary mass: needs follow MRI to assess. 12. Protein calorie malnutrition: 20 pound weight loss. Will start multivitamin. Consult nutrition on Tuesday. 13. Alcohol use disorder: monitor as above. DVT prophylaxis: SCD's. will stop lovenox until we know if he's bleeding or not. Code status: full code Patient will require another 48-72 hours of care to stabilize electrolytes, cardiac and neurologic status. Quality VTE Deep Vein Thrombosis/Pulmonary Embolism Present on Admission: No
[2019-04-07] MEDS: POLYETHYLENE GLYCOL 3350 17 GM POWD.PACK PO (10:50)
[2019-04-07] MEDS: MAGNESIUM HYDROXIDE 30 ML UDC PO (10:50)
--- NOTE | 2019-04-07 11:43 | DI.MRI.S_ITS ---
PROCEDURE: MR STROKE Pre- and post-contrast brain MRI, non-contrast brain MR angiogram, pre- and postcontrast neck MR angiogram INDICATIONS: pituitary mass, right sided weakness TECHNIQUE: Brain: Noncontrast axial T1 spin echo, axial T2 fast spin echo, sagittal and axial FLAIR, coronal T2 fast spin echo, axial gradient echo, axial diffusion and ADC through the brain. After the administration of contrast, axial 3D VIBE of the cranial vasculature and brain. Brain MRA: Non-contrast 3-D time of flight MR angiogram, with multiple bpiafhn-ekmqsrpch-xgdhefiryq (MIP) reformats performed. Neck MRA: Axial and sagittal TruFISP through the neck. Coronal dynamic MR angiogram during administration of contrast in the arterial and venous phases, with 3-dimenstional ylgzxtq-oouasvqxi-ebbuwomcxk (MIP) reformats constructed from subtraction images. COMPARISON: [facility], CT, CT ANGIO HEAD AND NECK, 04/05/2019, 10:33. [facility], MR, MR HEAD/BRAIN WO CON, 04/05/2019, 14:14. FINDINGS: Image quality: There is motion artifact limiting evaluation. BRAIN: CSF spaces: There is moderate to cerebral volume loss with prominence of the ventricles and sulci. Basal cisterns are patent. No extra-axial fluid collections. Brain: Diffusion weighted images demonstrate no acute infarcts. No intracranial hemorrhage. There are subcortical and periventricular foci of white matter T2 hyperintensity including a slightly prominent oval region in the left daniels radiata, which appears similar to the recent prior study. These areas demonstrate no associated enhancement following contrast administration. There is a pituitary mass redemonstrated within the sella, measuring approximately 1.5 cm in craniocaudal dimension by 1.4 cm in anteroposterior dimension by 1.4 cm in transverse dimension. Evaluation is limited by motion artifact and the large [id number]-aj-[id number]. This appears to extend to the right cavernous sinus. There is suprasellar extension to the optic chiasm. Brainstem appears normal. Normal intravascular flow voids are present. No abnormal intracranial enhancement. Skull and face: Calvarial marrow signal is normal. Orbits appear normal. Sinuses: There is mild mucosal thickening within the maxillary, ethmoid, and sphenoid sinuses with partial fluid opacification in the left sphenoid sinus. BRAIN MR ANGIOGRAM: Anterior circulation: Intracranial internal carotid arteries are normal in size and patent bilaterally. The flow within the paired anterior cerebral arteries is symmetric and patent bilaterally. The flow within the middle cerebral arteries is symmetric and patent bilaterally. The anterior communicating artery is patent. No high-grade stenoses, occlusions, or aneurysms. Posterior circulation: The visualized portions of the vertebral arteries are patent and join to form a patent basilar artery. The flow within the posterior cerebral arteries is symmetric and patent bilaterally. No high-grade stenoses, occlusions, or aneurysms. NECK MR ANGIOGRAM: Carotids: Great vessels demonstrate conventional anatomy as they arise from the aortic arch. The origins of the common carotid arteries appear patent. The calibers and courses of both common carotid arteries are normal. There is mild narrowing of up to approximately 40% in the right carotid bulb. The left carotid bulb appears widely patent. The internal carotid arteries demonstrate normal course and caliber. Posterior circulation: The origins of the vertebral arteries appear patent. More superior portions of both vertebral arteries demonstrate normal course and caliber, and join to form a normal appearing basilar artery. Miscellaneous: Subclavian arteries appear patent. Pre-contrast images through the neck demonstrate mild degenerative disc disease in the cervical spine without high-grade stenosis. IMPRESSION: BRAIN MRI: 1. No evidence of acute infarct or intracranial hemorrhage. 2. Periventricular white matter areas of T2 hyperintensity redemonstrated without associated enhancement. The findings are nonspecific but likely represent chronic small vessel ischemic changes. 3. Solid pituitary mass redemonstrated, with evaluation limited on the current study due to motion artifact and large hamis-sl-yitn. There is suprasellar extension to the optic chiasm as well as extension to the right cavernous sinus. 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 The differential includes carcinoma and metastatic disease. Recommend correlation clinically and further evaluation with a dedicated sella protocol MRI when clinically feasible if indicated. BRAIN MR ANGIOGRAM: 1. No high-grade stenosis or occlusion of the central intracranial arteries. NECK MR ANGIOGRAM: 1. No high-grade stenosis or occlusion of the head and neck arteries. There is mild narrowing of approximately 40% in the right carotid bulb. Dictated by: Ray Rasmussen M.D. on 04/08/2019 at 8:42 Approved by: Ray Rasmussen M.D. on 04/08/2019 at 8:56
[2019-04-07] MEDS: MULTIVIT,CALC,MINS/IRON/FOLIC 1 TABLET 1 TAB PO (12:16)
[2019-04-07 14:16] LABS: HEMOLYSIS < 15 (0-50); Iron 25 ug/dL (49-181)
[2019-04-07 14:26] LABS: Percent Iron Saturation 13 % (20-50); Total Iron Binding Capacity 194 ug/dL (261-462); Transferrin 124 mg/dL (206-381)
--- NOTE | 2019-04-07 14:31 | PT.IPTN ---
Current Diagnoses Rhabdomyolysis (04/05/19) Physical Therapy Treatment Note M2 PT-IP Current Condition Start: 04/06/19 11:52 Freq: NEEDED Status: Active Protocol: Document 04/06/19 11:16 DCW (Rec: 04/06/19 13:01 DCW [id number]) Physical Therapy Current Condition Current Condition Evaluation Date 04/06/19 Treatment Diagnosis Weakness, ETOH withdraw Onset Date 04/05/19 Weight Bearing Status Weight Bearing Status Full Weight Bearing M3 PT-IP Subjective Start: 04/06/19 11:52 Freq: NEEDED Status: Active Protocol: Document 04/07/19 13:50 LJ (Rec: 04/07/19 14:31 LJ [email or web address]) Subjective Physical Therapy Visit Type Type Treatment Note Visit Start Time 13:50 Visit Stop Time 14:13 Total Visit Minutes 23 Notes nursing states they have had him up onto BSC and in and out of bed. BP remained stable throughout all mobility Physical Therapy Visit Comments Patient Comments Willing to work with PT Therapy Pain Assessment Pain When Pain Assessed During Mobility Pain Present Pain Present Pain Reported Location Right Upper Leg Intensity 5 Scale Used Numeric (1 - 10) Pain Behaviors Facial Grimacing,Guarding, Holding Area M4 PT-IP Mobility and Gait Start: 04/06/19 11:52 Freq: NEEDED Status: Active Protocol: Document 04/07/19 13:50 LJ (Rec: 04/07/19 14:31 LJ [email or web address]) PT-Transfer Assessment Sit to and From Stand Sit to and from Stand Contact Guard Assistance,Use of Upper Extremities Equipment Transfer Assistive Device Gait Belt,Front Wheeled Walker Transfers Transfer Destination Chair Gait Assessment Gait Gait Assistance Required: Contact Guard Assist,1 Person Assist Distance (Feet) 50 Assistive Devices Assistive Device Gait Belt,Front Wheeled Walker Orthotic/Prosthetic Devices or Brace: No Gait Deviations General Gait Pattern Antalgic,Decreased Stride Length,Decreased Feet Clearance,Flexed Trunk,Step-to Gait Factors Limiting Gait Function Factors Limiting Gait Function Decreased Activity Tolerance, Decreased Strength,Limited Range of Motion,Pain,Poor Balance,Poor Safety Awareness Comments Gait Comments Pt able to move with small steps. R foot drop but able to clear foot. Pt ambulated ~50' out in hallway without LOB with CGA. Pt fatigued after ambulation and experienced slight posterior LOB which he self corrected. C/o pain in right thigh area during ambulation. M5 PT-IP Objective Assessments Start: 04/06/19 11:52 Freq: NEEDED Status: Active Protocol: Document 04/06/19 11:16 DCW (Rec: 04/06/19 13:01 DCW [id number]) Orientation Orientation/Cognition Level of Alertness Alert Orientation Name,Birthday,Month,Date,Year, Place,Situation Language Function Ability No Deficits Noted Safety Awareness Understands Safety Issues Memory Description Short Term Impaired Comments Pt unable to remember most of the few days prior to admission Gross Range of Motion Lower Extremity ROM Assessment Bilaterally Impaired Impairments Limited due to weakness and R hip pain Strength Lower Extremity Strength Assessment Bilaterally Impaired Hip 3-/5 Knee 4-/5 Comments Strength Comments Pt hip MMT limited due to R hip pain when pt attempted to move leg. Pt unable to flex either hip against gravity. Coordination Assessment Assessment Coordination Comments Pt displays tremor with all activity. M6 PT-IP Treatment Start: 04/06/19 11:52 Freq: NEEDED Status: Active Protocol: Document 04/07/19 13:50 LJ (Rec: 04/07/19 14:31 LJ [email or web address]) Physical Therapy Treatment Exercises Exercises Ankle Pumps,Gluteal Sets,Quad Sets,Heel Slides Education Education Provided Safety Other Treatments Other Treatment Performed education on using core muscles and assisting his RLE during seated marching. M7 PT-IP Assessment and Plan Start: 04/06/19 11:52 Freq: NEEDED Status: Active Protocol: Document 04/07/19 13:50 LJ (Rec: 04/07/19 14:31 LJ [email or web address]) PT Summary Assessment and Plan Potential Rehabilitation Potential Fair Status of Condition at Evaluation Evolving Summary Impairments Pain,Strength,Coordination, Transfers,Gait,Activity Tolerance Assessment Summary Pt much improved with BP and mobility since yesterday. He is able to ambulate in hallway for short distance with CGA and verbal cueing. Pt reported slight decrease in pain from 6 to 5 but it is still limiting his function. Advised pt to continue short bouts of exercising his LEs and glutes to perform heel slides, glute squeezes, and assisted marching as tolerated. Goals Bed Mobility Goal Independent Transfer Goal Independent Gait Goal Standby Assistance Gait Distance 100 Days to Meet Goals 4 Frequency of Treatment Frequency Of Treatment Once a Day Treatment Plan Physical Therapy Treatment Plan Transfer Training,Gait Training,Therapeutic Exercise, Balance Retraining, Neuromuscular Re-ed Recommendations To Nursing Amount of Assist Needed 1 Person Assist Discharge Recommendations PT Discharge Recommendations Home Health,SNF Rehab
--- NOTE | 2019-04-07 14:59 | CM.DANOTE ---
Per MD, pt making some medical progress and received an MRI for stroke protocol and now to have another MRI likely tomorrow to determine if pt has a possible pituitary mass. Pt remains on [facility] protocol for his alcohol withdrawal but making improvements. Per PT, pt made good progress today and able to ambulate with walker short distance today but still undetermined if SNF vs HH needed at d/c. SW met bedside with pt and explained role and pt confirms that he lives at home in [place] alone and works parttime at [employer] in [facility] and his adult son Hector Pagan fly from [place] to be with the pt since he was admitted to the hospital but has to fly back on Tuesday04/09/19. Pt denies any hx of HH or SNF and feels that he has made good progress but aware that he will likely need physical therapy at discharge and is agreeable with talking about options. SW discussed HH and SNF briefly and pt is hopeful to return home if possible but acknowledges that he is weaker and has pain in his thigh currently that he does not have at baseline. Pt confirms that he has had multiple falls recently at home and is unsure if its related to alcohol or other medical issues. Pt confirmed that he has a hx of alcohol treatment back in 1990 with Inpt CD tx and then participated in Intensive Outpt alcohol tx and pt states he feels it was very helpful, kept me sober for a long time. Pt admits to having at least 6 beers a day and has not been enrolled in any outpt MH or CD tx in the past 10 or more years. Pt does not get much benefit from AA meetings but states he would be agreeable to outpt alcohol treatment at discharge. Plan: SW to follow closely after MRI tomorrow to determine possible mass/medical concerns. SW to follow for further PT to determine HH vs SNF and to provide pt with attached CD/MH resources to follow up with prior or at discharge. 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 No Advance Directives on File No History Provided By Patient,Medical Record Has Patient been admitted in last 30 No days? Prior Living Arrangements House Household Members none Type of transporation used prior to Drives own vehicle admit Independent with ADL's Yes Is patient alert and oriented? Yes Caregiver for Another No Comment Waiting for further PT, HH vs SNF Barriers to Discharge No Transportation Arrangement Friend vs facility if SNF Additional Comment Waiting for further PT Whiteboard Updated in Patient Room with Yes name and ext. # of Quarry Worker Review Status In Process Please Provide Date Initial DC 04/07/19 Assessment Was Performed Next Review Type Continued Stay Review
[2019-04-07 15:06] LABS: Vitamin B12 649 pg/mL (239-931)
[2019-04-07 15:24] LABS: Hematocrit 30.4 % (41-53); Hemoglobin 10.7 g/dL (13.5-17.5)
[2019-04-07 15:34] LABS: BUN Creatinine Ratio 18.3 (6-22); Blood Urea Nitrogen 11 mg/dL (9-20); Calcium 8.2 mg/dL (8.4-10.2); Carbon Dioxide 25 mmol/L (22-32); Chloride 96 mmol/L (98-107); Estimated Glomerular Filt Rate > 60.0 mL/min (>60); Glucose 116 mg/dL (80-110); HEMOLYSIS < 15 (0-50); Magnesium 1.8 mg/dL (1.6-2.3); Potassium 3.6 mmol/L (3.4-5.1); Sodium 129 mmol/L (137-145)
--- NOTE | 2019-04-07 16:04 | OT.IP.EVAL ---
Current Diagnoses Rhabdomyolysis (04/05/19) Past Medical History (Last Reviewed 04/05/19 @ 17:05 by Nolberto Yanez MD) Dyslipidemia (Acute) Hypertension (Acute) Occupational Therapy Inpatient Evaluation/Re-Eval M1 PT/OT-IP Prior Functional Status Start: 04/06/19 11:52 Freq: NEEDED Status: Active Protocol: Document 04/07/19 17:19 CGR (Rec: 04/07/19 17:36 CGR [id number]) Medical Review Prior Functional Status Medical History Reviewed Yes Communication WFL Mobility and Gait Pt was IND prior to admit Activities of Daily Living and IADL's Pt was IND without AD prior to admit for all ADLs Social History Household Members none Living Arrangements House Number of Floors (Floors) One Floor Number of Stairs To Enter/Railing? 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 Son is in town at this time but will not beable to stay with pt upon discharge. M2 OT-IP Current Condition Start: 04/07/19 17:18 Freq: Status: Active Protocol: Document 04/07/19 17:19 CGR (Rec: 04/07/19 17:36 CGR [id number]) Occupational Therapy Current Condition Current Condition Evaluation Date 04/07/19 Treatment Diagnosis acute kidney injury, rhabdomyolysis, hypotension, ETOH withdrawl Diagnosis Onset Date 04/05/19 M3 OT- IP Subjective and Pain Start: 04/07/19 17:18 Freq: Status: Active Protocol: Document 04/07/19 17:19 CGR (Rec: 04/07/19 17:36 CGR [id number]) OT- Subjective Occupational Therapy Visit Type Type Initial Evaluation Visit Start Time 15:45 Visit Stop Time 16:04 Total Visit Minutes 19 Occupational Therapy Visit Comments Patient Comments My R leg really hurts when I move it. OT Pain Assessment Pain When Pain Assessed At Rest Pain Present Pain Present Pain Reported Location Right Upper Leg Intensity 6 Scale Used Numeric (1 - 10) Management Techniques Modification of Treatment,Re- positioning M4 OT- IP ADL's Start: 04/07/19 17:18 Freq: Status: Active Protocol: Document 04/07/19 17:19 CGR (Rec: 04/07/19 17:36 R [id number]) OT [id number] Comments OT Self-Feeding Comments Not meal time OT ADL-Grooming Comments OT Grooming Comments Pt declined, stated he had showered earlier today but was able to stand at sink and look at himself in the mirror. OT ADL-Oral Care Comments Oral Care Comments Pt declined. OT ADL-Dressing General Eval Lower Body Dressing Ability Maximum Assistance Areas Needing Assistance Socks Comments OT Dressing Comments Pt states that socks were difficult for him at baseline and would like to see the LB dressing AD that is available. OT ADL-Toileting Comments OT Toileting Comments Pt declined need, pt with aguero. OT ADL-Bathing Comments OT Bathing Comments Pt declined, stated he showered earlier today. M5 OT- IP IADL's Start: 04/07/19 17:18 Freq: Status: Active Protocol: Document 04/07/19 17:19 CGR (Rec: 04/07/19 17:36 R [id number]) OT-Instrumental Activities of Daily Living Deficits IADL Deficits Identified Deficits Home Safety Awareness Awareness of Need for Assistance at Home Decreased Awareness Ability to Problem Solve Emergency Unable to Problem Solve Situations Home Safety Comments Pt had difficulty answering basic safety questions and problem solving. Per nursing, pt with low sodium at time of eval. M6 OT- IP Functional Cognition Start: 04/07/19 17:18 Freq: Status: Active Protocol: Document 04/07/19 17:19 CGR (Rec: 04/07/19 17:36 CGR [id number]) Cognitive Factors Limiting Selfcare Function Cognitive Ability Level of Alertness Alert,Confusional State Patient Orientation Name,Month,Date,Year,Place Attention Span Ability Capable of Focused Attention Memory Description No Deficits Noted Cognitive Comments Cognitive Assessment Comments Pt was unable to process simple commands at times dispite visual demonstration. Per nursing, pt with low sodium at this time which is likely to impact his mentation . Recommend cog assessment if not cleared in the next 2 days . OT- Vision and Hearing OT- Hearing Assessment OT- Hearing Assessment WFL OT- Vision Assessment Visual Acuity Glasses All The Time Visual Attentiveness WFL Occular Pursuits Impaired Horizontal Visual Convergence Impaired Visual [place] WFL Diplopia Absent Visual Spacial Neglect Not Applicable Vision Assessment Comments Pt with delayed and jumpy occular pursuits. M7 OT- IP Mobility and Balance Start: 04/07/19 17:18 Freq: Status: Active Protocol: Document 04/07/19 17:19 CGR (Rec: 04/07/19 17:36 CGR [id number]) OT- Bed Mobility Assessment Rolling Type of Rolling Roll to Right Level of Assistance Contact Guard Assistance Supine to Sit Supine to Sit Assist Moderate Assistance Sit to Supine Sit to Supine Assist Moderate Assistance Scooting Scooting to Edge of Bed Independent OT-Transfer Assessment Sit to and From Stand Sit to and from Stand Contact Guard Assistance Transfers Transfer Ability Contact Guard Assistance Technique Transfer Destination Bed Transfer Technique Stand Step Pivot Devices Transfer Assistive Devices Gait Belt,Front Wheeled Walker Comments Mobility Comments Pt ambualted from the bed to the sink prior to declining ADLs standing. OT- Balance Assessment Sitting Balance and Reactions Static Sitting Balance Ability Good Dynamic Sitting Balance Ability Fair M8 OT- IP Objective Assessments Start: 04/07/19 17:18 Freq: Status: Active Protocol: Document 04/07/19 17:19 CGR (Rec: 04/07/19 17:36 CGR [id number]) OT Gross Range of Motion Upper Extremity Range of Motion Assessment Within Functional Limits ROM Impairments B shlds 0-110 OT Strength Upper Extremity Strength Assessment Within Functional Limits Comments Strength Comments 4/5 throughout. No weakness noted. OT- Coordination Assessment Upper Extremity Finger to Nose Test Within Functional Limits Finger Tapping Test Within Functional Limits OT-Muscle Tone Assessment Muscle Tone WNL Yes OT Sensation Assessment Edema Edema Absent M9 OT- IP Assessment and Plan Start: 04/07/19 17:18 Freq: Status: Active Protocol: Document 04/07/19 17:19 CGR (Rec: 04/07/19 17:36 CGR [id number]) OT Summary Assessment and Plan Potential Rehabilitation Potential Good Analytic Complexity at Evaluation Moderate Summary OT Impairments Pain,Range of Motion,Strength, Balance,Functional Cognition, Functional Mobility,Grooming, Dressing,Toileting,Bathing, Toilet Transfers,Shower Transfers Progress Towards Goals Slow Progress due to Medical Issues Assessment Summary Pt presents as a moderate complexity evaluation. Pt admitted after multiple falls at home. Pt currently not safe for discharge home. Pt will benefit from SNF given poor cognition, balance, strength, and ability to care for himself. Ot to follow up in the hospital setting daily as able. Goals Self-Feeding Goal Independent Grooming Goal Independent Dressing Goal Independent Toileting Goal Independent Bathing Goal Independent Toilet Transfer Goal Independent Shower Transfer Goal Independent Days to Meet Goals 10 Frequency of Treatment Frequency Of Treatment Once a Day Treatment Plan OT Treatment Plan ADL Training,Functional Cognition Training,Functional Mobility,Patient/Family Education,Discharge Planning Other Treatment Recommendations and Next ADLs standing, LB dressing, Treatment Focus cog assessment if pt still displaying difficulty with following directions. Discharge Recommendations OT Discharge Recommendations SNF Rehab Home Equipment Needs TBD
--- NOTE | 2019-04-07 17:25 | PC.NURSE ---
1700- Spoke with Dr. Mason regarding patient right leg pain and low sodium. She will write orders. Patient medicated with tylenol for pain reported 6/10 at rest. Urine is clear yellow in the aguero. Patient reports he feels he is not quite right yet with his mentation. Physical therapy reports that they feel he needs rehab as he was having difficulty with mobilization and processing cues. Will monitor.
--- NOTE | 2019-04-07 17:35 | DI.US.S_ITS ---
PROCEDURE: US PERIPH VENOUS LOW EXTREM RT INDICATIONS: medial upper thigh pain TECHNIQUE: Real-time imaging, as well as color and pulse Doppler interrogation, were performed of the lower extremity deep veins from the inguinal ligament to the popliteal fossa. COMPARISON: None. FINDINGS: The common femoral, femoral and popliteal veins are normally compressible, and free of intraluminal thrombus. Color and pulse Doppler demonstrate normal phasic intraluminal flow. There is normal augmentation response to distal compression maneuver. IMPRESSION: No deep vein thrombosis of the right lower extremity. Dictated by: Donna Jimenez M.D. on 04/07/2019 at 21:24 Approved by: Donna Jimenez M.D. on 04/07/2019 at 21:24
[2019-04-07] MEDS: SODIUM CHLORIDE 0.9% 1,000 ML 100 ML IV (18:29)
[2019-04-07] MEDS: POTASSIUM CHLORIDE 20 MEQ TAB 40 MEQ PO (18:38)
[2019-04-07] MEDS: OXYCODONE IR 5 MG TABLET PO (19:29)
[2019-04-07] MEDS: SENNOSIDES 8.6 MG TABLET 17.2 MG PO (20:48)
[2019-04-07] MEDS: METOPROLOL IR 25 MG TABLET 12.5 MG PO (20:48)
[2019-04-07] MEDS: ATORVASTATIN 10 MG TABLET PO (20:49)
[2019-04-08] MEDS: OXYCODONE IR 5 MG TABLET PO ×3 (00:02→15:50)
[2019-04-08 03:00] VITALS: BP 107/62; PULSE 87; RESP 16; TEMP 36.8; O2SAT 94
[2019-04-08] MEDS: SODIUM CHLORIDE 0.9% 1,000 ML 100 ML IV (04:21)
[2019-04-08 05:22] LABS: Add Manual Diff / Slide Review NO; Basophils Absolute Auto 0 /uL (0-100); Basophils Percent Auto 0.6 % (0-2); Eosinophils Absolute Auto 100 /uL (0-450); Eosinophils Percent Auto 2.3 % (2-4); Hematocrit 26.7 % (41-53); Hemoglobin 9.6 g/dL (13.5-17.5); Lymphocytes Absolute Auto 1100 /uL (1100-4500); Lymphocytes Percent Auto 29.4 % (25-40); Mean Corpuscular Hemoglobin 33.8 PG (26-34); Monocytes Absolute Auto 500 /uL (0-900); Monocytes Percent Auto 12.1 % (3-14); Neutrophils Absolute Auto 2200 /uL (1500-7000); Neutrophils Percent Auto 55.6 % (50-75); Platelet Count 126 X10^3/uL (150-400); Red Blood Cell Count 2.84 X10^6/uL (4.5-5.9); Red Cell Distribution Width 12.6 % (11.6-14.8); White Blood Cell Count 3.9 X10^3/uL (4.5-11.0)
[2019-04-08 05:29] LABS: BUN Creatinine Ratio 11.7 (6-22); Blood Urea Nitrogen 7 mg/dL (9-20); Calcium 7.7 mg/dL (8.4-10.2); Carbon Dioxide 24 mmol/L (22-32); Chloride 100 mmol/L (98-107); Creatine Kinase 581 U/L (55-170); Estimated Glomerular Filt Rate > 60.0 mL/min (>60); Glucose 82 mg/dL (80-110); HEMOLYSIS < 15 (0-50); Magnesium 1.6 mg/dL (1.6-2.3); Potassium 3.5 mmol/L (3.4-5.1); Sodium 131 mmol/L (137-145)
[2019-04-08 06:27] LABS: Thyroid Stimulating Hormone 1.19 uIU/mL (0.47-4.68)
[2019-04-08] MEDS: LORazepam 2 MG/ML INJ 1 MG IV (07:41)
[2019-04-08 08:00] VITALS: BP 96/56; PULSE 88; RESP 16; TEMP 36.4; O2SAT 93
[2019-04-08] MEDS: POTASSIUM CHLORIDE 20 MEQ TAB PO (09:01)
[2019-04-08] MEDS: METOPROLOL IR 25 MG TABLET 12.5 MG PO ×2 (09:02→20:49)
[2019-04-08] MEDS: ASPIRIN EC 81 MG TABLET PO (09:02)
[2019-04-08] MEDS: MAGNESIUM OXIDE 400 MG TABLET PO (09:03)
[2019-04-08] MEDS: MULTIVIT,CALC,MINS/IRON/FOLIC 1 TABLET 1 TAB PO (09:03)
[2019-04-08] MEDS: SODIUM CHLORIDE 0.9% FLUSH 10 ML IV (09:03)
--- NOTE | 2019-04-08 09:36 | P.CONS_ITS ---
History of Present Illness Consult details Date Patient Seen: 04/08/19 Time Patient Seen: 09:36 Chief complaint: Altered Mental Status Reason for consult: right thigh pain Narrative: Patient is a 73 year old male with a recent history of multiple falls, 5 or 6. He is admitted for stroke work up and treatment of rhabdo. Rocky continues to have right anterior thigh pain. He denies groin pain. Denies previous history of leg pain. Denies numbness or tingling in the leg. Pain is worse with flexing hip against gravity or with ambulation. [facility] Medical History Dyslipidemia (Acute) Hypertension (Acute) Family History Father Heart disease Mother Heart disease Social History household members: none Smoking Status: Former smoker alcohol intake: former Meds Home Medications and Allergies Home Medications Medication Instructions Recorded Confirmed Type aspirin 81 mg PO DAILY #0 12/25/10 04/05/19 History hydrochlorothiazide 25 mg PO QDAY #90 tab 06/28/17 04/05/19 Rx nifedipine 30 mg tablet,extended 30 mg PO QDAY #90 tab 07/04/18 04/05/19 Rx release fluticasone propionate 1 spray INTRANASAL QDAYP PRN #16 gm 07/10/18 04/05/19 Rx metoprolol tartrate 50 mg tablet 50 mg PO BID #180 tab 09/17/18 04/05/19 Rx atorvastatin 10 mg PO BEDTIME 04/05/19 04/05/19 History potassium chloride 60 meq PO BEDTIME 04/05/19 04/05/19 History potassium chloride [Klor-Con M20] 80 meq PO DAILY 04/05/19 04/05/19 History Allergies Allergy/AdvReac Type Severity Reaction Status Date / Time No Known Drug Allergies Allergy Unverified 04/05/19 10:31 Review of Systems Review of Systems ROS Unobtainable: All systems reviewed & are unremarkable except as noted in HPI and below Exam Vital Signs (past 8 hours): - 04/08/19 03:00 04/08/19 08:00 Temperature 98.2 F 97.5 F L Pulse Rate 87 88 Respiratory Rate 16 16 Blood Pressure 107/62 96/56 L Pulse Oximetry 94 93 Oxygen Delivery Method Room Air Oxygen Flow Rate 0 Narrative Exam Narrative: AAOx3, pleasant No groin pain with flexion, legroll, abduction or adduction of the hip. Intact extensor mechanism. Moderate TTP over the proximal quad and adductors. Sensation and motor intact in RLE. Pain with resisted hip flexion and adduction. Objective Imaging x-ray pelvis: My impression: No fractures appreciated, mild OA of bilateral hips. Labs Result Diagrams: 04/08/19 04:50 04/08/19 04:50 Labs: Laboratory Results - last 24 hr 04/07/19 04/07/19 04/07/19 05:00 05:00 15:16 WBC RBC Hgb Hct MCV MCH MCHC RDW Plt Count Neut % (Auto) Lymph % (Auto) [place] % (Auto) Eos % (Auto) Baso % (Auto) Neut # (Auto) Lymph # (Auto) [place] # (Auto) Eos # (Auto) Baso # (Auto) Sodium 129 L Potassium 3.6 Chloride 96 L Carbon Dioxide 25 BUN 11 Creatinine 0.60 L Estimated GFR > 60.0 BUN/Creatinine Ratio 18.3 Glucose 116 H Hemoglobin A1c Calcium 8.2 L Magnesium 1.8 Iron 25 L TIBC 194 L % Saturation 13 L Transferrin 124 L Ferritin 570.0 H Total Creatine Kinase Vitamin B12 649 [facility] 04/07/19 04/08/19 04/08/19 15:16 04:50 04:50 WBC 3.9 L RBC 2.84 L Hgb 10.7 L 9.6 L Hct 30.4 L 26.7 L MCV 94.0 MCH 33.8 MCHC 36.0 RDW 12.6 Plt Count 126 L Neut % (Auto) 55.6 Lymph % (Auto) 29.4 [place] % (Auto) 12.1 Eos % (Auto) 2.3 Baso % (Auto) 0.6 Neut # (Auto) 2200 Lymph # (Auto) 1100 [place] # (Auto) 500 Eos # (Auto) 100 Baso # (Auto) 0 Sodium 131 L Potassium 3.5 Chloride 100 Carbon Dioxide 24 BUN 7 L Creatinine 0.60 L Estimated GFR > 60.0 BUN/Creatinine Ratio 11.7 Glucose 82 Hemoglobin A1c Calcium 7.7 L Magnesium 1.6 Iron TIBC % Saturation Transferrin Ferritin Total Creatine Kinase Vitamin B12 [facility] 04/08/19 04/08/19 04/08/19 04:50 04:50 04:50 WBC RBC Hgb Hct MCV MCH MCHC RDW Plt Count Neut % (Auto) Lymph % (Auto) [place] % (Auto) Eos % (Auto) Baso % (Auto) Neut # (Auto) Lymph # (Auto) [place] # (Auto) Eos # (Auto) Baso # (Auto) Sodium Potassium Chloride Carbon Dioxide BUN Creatinine Estimated GFR BUN/Creatinine Ratio Glucose Hemoglobin A1c 5.0 Calcium Magnesium Iron TIBC % Saturation Transferrin Ferritin Total Creatine Kinase 581 H D Vitamin B12 TSH 1.19 Assessment & Plan Assessment & Plan narrative: Patient is a 73 year old male with multiple recent falls. HE complains of right anterior and medial thigh pain. His symptoms are most consistent with muscle strain. He does not have groin pain. X-ray is benign appearing. If he starts to experiecne groin pain with ambulation than he should be made NWB and an urgent MRI should be ordered to rule out non-displaced femoral neck fracutre, however at this time he does not have those symptoms and my suspicions are low. Continue PT, WBAT RLE. Ice for pain control. Please contact Dr. Fernandez if further issues arise. Time Spent With Patient Time with patient: 15-24 minutes
--- NOTE | 2019-04-08 11:38 | P.PN_ITS ---
Subjective Subjective Date Patient Seen: 04/08/19 Time Patient Seen: 11:38 Interval history: Patient sleepy after lorazepam for MRI earlier this morning. He has not acute complaints. Was evaluated by ortho earlier for his right leg pain. Exam Vital Signs (past 8 hours): - 04/08/19 08:00 Temperature 97.5 F L Pulse Rate 88 Respiratory Rate 16 Blood Pressure 96/56 L Pulse Oximetry 93 Oxygen Delivery Method Room Air Oxygen Flow Rate 0 Narrative Exam Narrative: General: Well-developed, well-nourished, male, no acute distress, sleepy but arousable. Heart: Regular rate and rhythm, no obvious murmurs appreciated Lungs: Clear to auscultation bilaterally, no wheezes, rales or rhonchi Extremities: Warm and well perfused, no edema, stasis dermatitis changes to both lower extremities Objective Imaging MRI - head: Radiologist's impression: IMPRESSION: BRAIN MRI: 1. No evidence of acute infarct or intracranial hemorrhage. 2. Periventricular white matter areas of T2 hyperintensity redemonstrated without associated enhancement. The findings are nonspecific but likely represent chronic small vessel ischemic changes. 3. Solid pituitary mass redemonstrated, with evaluation limited on the current study due to motion artifact and large [id number]. There is suprasellar extension to the optic chiasm as well as extension to the right cavernous sinus. 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 The differential includes carcinoma and metastatic disease. Recommend correlation clinically and further evaluation with a dedicated sella protocol MRI when clinically feasible if indicated. BRAIN MR ANGIOGRAM: 1. No high-grade stenosis or occlusion of the central intracranial arteries. NECK MR ANGIOGRAM: 1. No high-grade stenosis or occlusion of the head and neck arteries. There is mild narrowing of approximately 40% in the right carotid bulb. Labs Result Diagrams: 04/08/19 04:50 04/08/19 04:50 Labs: Laboratory Results - last 24 hr 04/07/19 04/07/19 04/07/19 05:00 05:00 15:16 WBC RBC Hgb Hct MCV MCH MCHC RDW Plt Count Neut % (Auto) Lymph % (Auto) [place] % (Auto) Eos % (Auto) Baso % (Auto) Neut # (Auto) Lymph # (Auto) [place] # (Auto) Eos # (Auto) Baso # (Auto) Sodium 129 L Potassium 3.6 Chloride 96 L Carbon Dioxide 25 BUN 11 Creatinine 0.60 L Estimated GFR > 60.0 BUN/Creatinine Ratio 18.3 Glucose 116 H Hemoglobin A1c Calcium 8.2 L Magnesium 1.8 Iron 25 L TIBC 194 L % Saturation 13 L Transferrin 124 L Ferritin 570.0 H Total Creatine Kinase Vitamin B12 649 TSH 04/07/19 04/08/19 04/08/19 15:16 04:50 04:50 WBC 3.9 L RBC 2.84 L Hgb 10.7 L 9.6 L Hct 30.4 L 26.7 L MCV 94.0 MCH 33.8 MCHC 36.0 RDW 12.6 Plt Count 126 L Neut % (Auto) 55.6 Lymph % (Auto) 29.4 [place] % (Auto) 12.1 Eos % (Auto) 2.3 Baso % (Auto) 0.6 Neut # (Auto) 2200 Lymph # (Auto) 1100 [place] # (Auto) 500 Eos # (Auto) 100 Baso # (Auto) 0 Sodium 131 L Potassium 3.5 Chloride 100 Carbon Dioxide 24 BUN 7 L Creatinine 0.60 L Estimated GFR > 60.0 BUN/Creatinine Ratio 11.7 Glucose 82 Hemoglobin A1c Calcium 7.7 L Magnesium 1.6 Iron TIBC % Saturation Transferrin Ferritin Total Creatine Kinase Vitamin B12 TSH 04/08/19 04/08/19 04/08/19 04:50 04:50 04:50 WBC RBC Hgb Hct MCV MCH MCHC RDW Plt Count Neut % (Auto) Lymph % (Auto) [place] % (Auto) Eos % (Auto) Baso % (Auto) Neut # (Auto) Lymph # (Auto) [place] # (Auto) Eos # (Auto) Baso # (Auto) Sodium Potassium Chloride Carbon Dioxide BUN Creatinine Estimated GFR BUN/Creatinine Ratio Glucose Hemoglobin A1c 5.0 Calcium Magnesium Iron TIBC % Saturation Transferrin Ferritin Total Creatine Kinase 581 H D Vitamin B12 TSH 1.19 Assessment & Plan Assessment & Plan narrative: 1. Acute kidney injury: renal function has return ed to baseline. 2. Rhabdomyolysis: CK is now 500 3. Electrolytes: potassium and magnesium corrected. Continue oral supplementation. 4. Hypotension: improved. tolerating a low dose of beta tyrone 5. Cardiac-patient with borderline enzyme elevations on admission thought likely secondary to his elevated CK and or his acute kidney injury. Minor changes on ECG however. Echo showing reduced EF and wall motion abnormalities consistent with strain. Type II HI. Will need stress testing as outpatient. 6. Syncope-CVA, HI and EToh withdrawal all contributors. No evidence of cardiac dysrhythmia. Will discontinue telemetry. Continue to monitor carefully looking for evidence of alcohol withdrawal and or seizure activity as well as reassess his neurologic status 7. Weakness: Left sided pattern consistent with MRI and stroke but repeat MRI does not support this. Hip/leg pain likely strain possibly contributing to left sided pain. weakness from rhabdomyolysis. 8. Hypertension: currently tolerating low dose metoprolol. would be good to add acei/arb if possible. 9. Diabetes: current hgba1c 5.0 not on any medications. Do not anticipate need to blood sugar control while in house. 10. Anemia: Acute on chronic secondary to nutrition. dilutional. Now stable. 11. Pituitary mass: needs follow up specialty MRI to assess. 12. Protein calorie malnutrition: 20 pound weight loss. Will start multivitamin. nutrition consult in place. 13. Alcohol use disorder: monitor as above. DVT prophylaxis: lovenox. Code status: full code Patient will require rehabilitation secondary to weakness from the above insults. He will ready for discharge in the next 24 -48 hours. Quality VTE Deep Vein Thrombosis/Pulmonary Embolism Present on Admission: No
--- NOTE | 2019-04-08 11:45 | PT-IP ANOTE ---
Checked on pt for PT treatment, but he was too groggy to participate after being medicated this morning for MRI. Will follow up with patient in the afternoon.
[2019-04-08 12:00] VITALS: BP 98/56; PULSE 82; RESP 16; TEMP 36.3; O2SAT 96
--- NOTE | 2019-04-08 13:49 | PC.NURSE ---
Pt premedicated with IV ativan per Dr. Mason's order prior to MRI. Pt tolerated well and returned to room in no distress. Noted to be mildly confused and drowsy. This is a wild ride. Pt is answering orientation questions appropriately but asking repetitive questions and reports feeling weird. Educated to side effects of IV ativan. Pt verbalizes understanding and requests to sleep. Easily rouses to verbal stimulus. VSS. Allowing rest per pt request. Will monitor.
--- NOTE | 2019-04-08 14:45 | OT.IP.TRT ---
Current Diagnoses Rhabdomyolysis (04/05/19) Occupational Therapy Treatment Note M2 OT-IP Current Condition Start: 04/07/19 17:18 Freq: Status: Active Protocol: Document 04/07/19 17:19 CGR (Rec: 04/07/19 17:36 CGR [id number]) Occupational Therapy Current Condition Current Condition Evaluation Date 04/07/19 Treatment Diagnosis acute kidney injury, rhabdomyolysis, hypotension, ETOH withdrawl Diagnosis Onset Date 04/05/19 M3 OT- IP Subjective and Pain Start: 04/07/19 17:18 Freq: Status: Active Protocol: Document 04/08/19 17:11 CGR (Rec: 04/08/19 17:22 CGR [id number]) OT- Subjective Occupational Therapy Visit Type Type Progress Note Visit Start Time 14:20 Visit Stop Time 14:45 Total Visit Minutes 25 OT Pain Assessment Pain When Pain Assessed At Rest Pain Present Pain Present Pain Reported Location Right Upper Leg Intensity 4 Scale Used Numeric (1 - 10) Management Techniques Distraction,Re-positioning M4 OT- IP ADL's Start: 04/07/19 17:18 Freq: Status: Active Protocol: Document 04/08/19 17:11 CGR (Rec: 04/08/19 17:22 CGR [id number]) OT [id number] Comments OT Self-Feeding Comments Not meal time OT ADL-Grooming General Evaluation Grooming Ability Minimal Assistance Areas Needing Assistance Retrieving/Set-up of Grooming Items,Combing/Brushing Hair, Face Washing Comments OT Grooming Comments Pt stood at sink for grooming but needed min a for balance while leaning up against the sink. Initially put the wrong end of the tooth brush under the faucet to get it wet and noted that the water on the sink was hot, not noticing that he had turned on the hot water. OT ADL-Oral Care General Eval Oral Care Ability Minimal Assistance Comments Oral Care Comments Standing at sink with min a for standing balance while leaning against the sink. M5 OT- IP IADL's Start: 04/07/19 17:18 Freq: Status: Active Protocol: Document 04/07/19 17:19 CGR (Rec: 04/07/19 17:36 CGR [id number]) OT-Instrumental Activities of Daily Living Deficits IADL Deficits Identified Deficits Home Safety Awareness Awareness of Need for Assistance at Home Decreased Awareness Ability to Problem Solve Emergency Unable to Problem Solve Situations Home Safety Comments Pt had difficulty answering basic safety questions and problem solving. Per nursing, pt with low sodium at time of eval. M6 OT- IP Functional Cognition Start: 04/07/19 17:18 Freq: Status: Active Protocol: Document 04/08/19 17:11 CGR (Rec: 04/08/19 17:22 CGR [id number]) Cognitive Factors Limiting Selfcare Function Cognitive Ability Level of Alertness Alert Patient Orientation Name Attention Span Ability Capable of Focused Attention Cognitive Comments Cognitive Assessment Comments Pt was medicated for MRI this AM and slept most of the day per nursing. Pt may benefit from a formalized cog assessment, however, was not appropriate on this date. OT- Vision and Hearing OT- Hearing Assessment OT- Hearing Assessment WFL OT- Vision Assessment Visual Acuity Glasses All The Time Visual Attentiveness WFL Occular Pursuits Impaired Horizontal Visual Convergence Impaired Visual [place] WFL Diplopia Absent Visual Spacial Neglect Not Applicable Vision Assessment Comments Pt with delayed and jumpy occular pursuits. M7 OT- IP Mobility and Balance Start: 04/07/19 17:18 Freq: Status: Active Protocol: Document 04/08/19 17:11 CGR (Rec: 04/08/19 17:22 CGR [id number]) OT- Bed Mobility Assessment Supine to Sit Supine to Sit Assist Minimal Assistance,Moderate Assistance Scooting Scooting to Edge of Bed Minimal Assistance OT-Transfer Assessment Sit to and From Stand Sit to and from Stand Minimal Assistance Transfers Transfer Ability Minimal Assistance Technique Transfer Destination Bed,Chair Transfer Technique Stand Step Pivot Devices Transfer Assistive Devices Gait Belt,Front Wheeled Walker OT- Gait Assessment Gait Gait Assistance Required: Minimum Assistance Assistive Devices Assistive Device Gait Belt,Front Wheeled Walker Comments Gait Ability Comments 2 LOB when leaving the sink needing assist to regain balance. OT- Balance Assessment Sitting Balance and Reactions Static Sitting Balance Ability Good Dynamic Sitting Balance Ability Fair M8 OT- IP Objective Assessments Start: 04/07/19 17:18 Freq: Status: Active Protocol: Document 04/07/19 17:19 CGR (Rec: 04/07/19 17:36 CGR [id number]) OT Gross Range of Motion Upper Extremity Range of Motion Assessment Within Functional Limits ROM Impairments B shlds 0-110 OT Strength Upper Extremity Strength Assessment Within Functional Limits Comments Strength Comments 4/5 throughout. No weakness noted. OT- Coordination Assessment Upper Extremity Finger to Nose Test Within Functional Limits Finger Tapping Test Within Functional Limits OT-Muscle Tone Assessment Muscle Tone WNL Yes OT Sensation Assessment Edema Edema Absent M9 OT- IP Assessment and Plan Start: 04/07/19 17:18 Freq: Status: Active Protocol: Document 04/08/19 17:11 CGR (Rec: 04/08/19 17:22 CGR [id number]) OT Summary Assessment and Plan Potential Rehabilitation Potential Good Analytic Complexity at Evaluation Moderate Summary OT Impairments Pain,Range of Motion,Strength, Balance,Functional Cognition, Functional Mobility,Grooming, Dressing,Toileting,Bathing, Toilet Transfers,Shower Transfers Progress Towards Goals Slow Progress due to Medical Issues Assessment Summary Pt currently not safe for discharge home with limited endurance, decline in cognition, and poor balance. Pt will benefit from SNF given poor cognition, balance, strength, and ability to care for himself. Ot to follow up in the hospital setting daily as able. Goals Self-Feeding Goal Independent Grooming Goal Independent Dressing Goal Independent Toileting Goal Independent Bathing Goal Independent Toilet Transfer Goal Independent Shower Transfer Goal Independent Days to Meet Goals 9 Frequency of Treatment Frequency Of Treatment Once a Day Treatment Plan OT Treatment Plan ADL Training,Functional Cognition Training,Functional Mobility,Patient/Family Education,Discharge Planning Other Treatment Recommendations and Next ADLs standing, LB dressing, Treatment Focus cog assessment if pt still displaying difficulty with following directions. Discharge Recommendations OT Discharge Recommendations SNF Rehab Home Equipment Needs TBD
--- NOTE | 2019-04-08 14:51 | PT.IPTN ---
Current Diagnoses Rhabdomyolysis (04/05/19) Physical Therapy Treatment Note M2 PT-IP Current Condition Start: 04/06/19 11:52 Freq: NEEDED Status: Active Protocol: Document 04/06/19 11:16 DCW (Rec: 04/06/19 13:01 DCW [id number]) Physical Therapy Current Condition Current Condition Evaluation Date 04/06/19 Treatment Diagnosis Weakness, ETOH withdraw Onset Date 04/05/19 Weight Bearing Status Weight Bearing Status Full Weight Bearing M3 PT-IP Subjective Start: 04/06/19 11:52 Freq: NEEDED Status: Active Protocol: Document 04/08/19 14:51 CLB (Rec: 04/08/19 15:35 CLB [email or web address]) Subjective Physical Therapy Visit Type Type Treatment Note Visit Start Time 14:51 Visit Stop Time 15:09 Total Visit Minutes 18 Notes Pt in chair upon arrival had just been up to sink with OT. RN present to remove heart monitor and catheter. Number of ORDER MANAGER Visits 2 Physical Therapy Visit Comments Patient Comments Willing to work with therapy. Therapy Pain Assessment Pain When Pain Assessed During Exercise Pain Present Pain Present Pain Reported Location Right Upper Leg Scale Used did not state Pain Behaviors Guarding,Holding Area Pain Management Techniques Modification of Treatment M4 PT-IP Mobility and Gait Start: 04/06/19 11:52 Freq: NEEDED Status: Active Protocol: Document 04/08/19 14:51 CLB (Rec: 04/08/19 15:35 CLB [id number]) PT-Transfer Assessment Sit to and From Stand Sit to and from Stand Minimal Assistance,1 Person Assistance,Use of Upper Extremities Equipment Transfer Assistive Device Gait Belt,Front Wheeled Walker Transfers Transfer Destination Chair Transfer Ability Level of Assist Contact Guard Assistance Comments Mobility Comments Pt stood with cues for hand placement and Min A. Pt with posterior lean upon standing required cues for posture to stand upright. Pt able to correct lean after cues. Pt required cues to back up to chair while keeping walker close, feeling legs on back of chair and reaching for chair arm for controlled descent. Left pt in chair with call light and all needs within reach. Gait Assessment Gait Gait Assistance Required: Contact Guard Assist,1 Person Assist Distance (Feet) 100 Assistive Devices Assistive Device Gait Belt,Front Wheeled Walker Orthotic/Prosthetic Devices or Brace: No Gait Deviations General Gait Pattern Antalgic,Decreased Stride Length,Decreased Feet Clearance,Flexed Trunk,Step-to Gait Factors Limiting Gait Function Factors Limiting Gait Function Decreased Activity Tolerance, Decreased Strength,Limited Range of Motion,Pain,Poor Balance,Poor Safety Awareness Comments Gait Comments Pt used small step to gait pattern requiring rest breaks. Pt with one LOB during a turn but was able to self correct. No c/o of increased pain in leg during ambulation. M5 PT-IP Objective Assessments Start: 04/06/19 11:52 Freq: NEEDED Status: Active Protocol: Document 04/06/19 11:16 DCW (Rec: 04/06/19 13:01 DCW [id number]) Orientation Orientation/Cognition Level of Alertness Alert Orientation Name,Birthday,Month,Date,Year, Place,Situation Language Function Ability No Deficits Noted Safety Awareness Understands Safety Issues Memory Description Short Term Impaired Comments Pt unable to remember most of the few days prior to admission Gross Range of Motion Lower Extremity ROM Assessment Bilaterally Impaired Impairments Limited due to weakness and R hip pain Strength Lower Extremity Strength Assessment Bilaterally Impaired Hip 3-/5 Knee 4-/5 Comments Strength Comments Pt hip MMT limited due to R hip pain when pt attempted to move leg. Pt unable to flex either hip against gravity. Coordination Assessment Assessment Coordination Comments Pt displays tremor with all activity. M6 PT-IP Treatment Start: 04/06/19 11:52 Freq: NEEDED Status: Active Protocol: Document 04/08/19 14:51 CLB (Rec: 04/08/19 15:35 CLB [email or web address]) Physical Therapy Treatment Exercises Exercises Ankle Pumps,Gluteal Sets,Quad Sets,Seated Knee Flexion/ Extension M7 PT-IP Assessment and Plan Start: 04/06/19 11:52 Freq: NEEDED Status: Active Protocol: Document 04/08/19 14:51 CLB (Rec: 04/08/19 15:35 CLB [email or web address]) PT Summary Assessment and Plan Potential Rehabilitation Potential Fair Status of Condition at Evaluation Evolving Summary Impairments Pain,Strength,Coordination, Transfers,Gait,Activity Tolerance Assessment Summary Pt is Min A for sit-stand and CGA for stand-sit. Pt increased gait distance to ~ 100ft with FWW/CGA with one LOB during turn. Pt required standing rest breaks during gait and cues for hand placement and walker management during chair approach. Goals Bed Mobility Goal Independent Transfer Goal Independent Gait Goal Standby Assistance Gait Distance 100 Days to Meet Goals 4 Frequency of Treatment Frequency Of Treatment Once a Day Treatment Plan Physical Therapy Treatment Plan Transfer Training,Gait Training,Therapeutic Exercise, Balance Retraining, Neuromuscular Re-ed Recommendations To Nursing Amount of Assist Needed 1 Person Assist Discharge Recommendations PT Discharge Recommendations Home Health,SNF Rehab
[2019-04-08 15:37] VITALS: BP 109/65; PULSE 94; RESP 18; TEMP 36.4; O2SAT 100
[2019-04-08] MEDS: ATORVASTATIN 10 MG TABLET PO (20:51)
--- NOTE | 2019-04-08 21:24 | PC.NURSE ---
2100- Patient stood at bedside but did not feel the urge to void. Patient has not been taking po as he usually does. Patient does not feel distended. Patient encouraged to drink more fluids. Patient verbalizes understanding.
[2019-04-09] MEDS: OXYCODONE IR 5 MG TABLET PO (00:22)
[2019-04-09 00:24] VITALS: BP 109/62; PULSE 91; RESP 16; TEMP 36.3; O2SAT 95
--- NOTE | 2019-04-09 01:08 | PC.NURSE ---
Dr. Mason called regarding inability of pt to void and bladder scan showing >500ml. Order received to replace aguero, and #16 cath placed without problem and return of clear yellow urine
[2019-04-09 04:59] LABS: Add Manual Diff / Slide Review NO; Basophils Absolute Auto 0 /uL (0-100); Basophils Percent Auto 0.8 % (0-2); Eosinophils Absolute Auto 100 /uL (0-450); Eosinophils Percent Auto 3.1 % (2-4); Hematocrit 28.3 % (41-53); Lymphocytes Absolute Auto 900 /uL (1100-4500); Lymphocytes Percent Auto 20.1 % (25-40); Mean Corpuscular HGB Conc 35.3 % (30-36); Mean Corpuscular Hemoglobin 33.5 PG (26-34); Monocytes Absolute Auto 600 /uL (0-900); Monocytes Percent Auto 13.5 % (3-14); Neutrophils Absolute Auto 2900 /uL (1500-7000); Neutrophils Percent Auto 62.5 % (50-75); Platelet Count 144 X10^3/uL (150-400); Red Blood Cell Count 2.98 X10^6/uL (4.5-5.9); Red Cell Distribution Width 12.4 % (11.6-14.8); White Blood Cell Count 4.6 X10^3/uL (4.5-11.0)
[2019-04-09 05:08] LABS: Blood Urea Nitrogen 6 mg/dL (9-20); Carbon Dioxide 26 mmol/L (22-32); Chloride 100 mmol/L (98-107); Estimated Glomerular Filt Rate > 60.0 mL/min (>60); Glucose 91 mg/dL (80-110); HEMOLYSIS 21 (0-50); Magnesium 1.6 mg/dL (1.6-2.3); Potassium 4.3 mmol/L (3.4-5.1); Sodium 131 mmol/L (137-145)
[2019-04-09 08:30] VITALS: BP 122/69; PULSE 91; RESP 18; TEMP 36.6; O2SAT 99
--- NOTE | 2019-04-09 08:48 | PM.PN.1 ---
Subjective Subjective Date Patient Seen: 04/09/19 Time Patient Seen: 08:49 Interval history: Rhabdomyolysis. Patient feeling better. Primary complaint is right 5th anterior thigh pain. No other pain. Also complaining about inability to urinate. Catheter being replaced tolerating well. He denies any neurologic symptoms still somewhat weak and unsteady when he ambulates. No chest pain no shortness of breath no palpitations. He relates that he is overdue for colonoscopy. He had 1 in 2013 that showed a tubular adenoma was to have 1 done this year sometime. Exam Vital Signs (past 8 hours): - 04/09/19 08:30 Temperature 97.8 F Pulse Rate 91 H Respiratory Rate 18 Blood Pressure 122/69 Pulse Oximetry 99 Oxygen Delivery Method Room Air Oxygen Flow Rate 0 Narrative Exam Narrative: Patient is examined he sitting up in his bedside chair comb his hair. He appears usual self. Neurologic exam cranial nerves 2-12 intact and he has nose lateralization of strength or sensation. Lungs clear heart regular rhythm no murmur gallop. Objective Labs Result Diagrams: 04/09/19 04:45 04/09/19 04:45 Labs: Laboratory Results - last 24 hr 04/09/19 04/09/19 04:45 04:45 WBC 4.6 RBC 2.98 L Hgb 10.0 L Hct 28.3 L MCV 95.0 MCH 33.5 MCHC 35.3 RDW 12.4 Plt Count 144 L Neut % (Auto) 62.5 Lymph % (Auto) 20.1 L Morgan % (Auto) 13.5 Eos % (Auto) 3.1 Baso % (Auto) 0.8 Neut # (Auto) 2900 Lymph # (Auto) 900 L Morgan # (Auto) 600 Eos # (Auto) 100 Baso # (Auto) 0 Sodium 131 L Potassium 4.3 Chloride 100 Carbon Dioxide 26 BUN 6 L Creatinine 0.60 L Estimated GFR > 60.0 BUN/Creatinine Ratio 10.0 Glucose 91 Calcium 8.0 L Magnesium 1.6 Labs reviewed as above renal function has returned to normal. Blood sugar normal. Magnesium normal. Major change has been his hemoglobin is dropped. Ferritin level however is elevated presumably secondary to the acute trauma Assessment & Plan Assessment & Plan narrative: 1. Acute kidney injury resolved with hydration. 2. Rhabdomyolysis improving with hydration. He still has fair amount of systemic affects from the rhabdomyolysis weakness somewhat unsteady on his feet perhaps mentally still somewhat fussy but otherwise normal. 3. Inability urinate presumably has enlarged prostate. This to be evaluated as a outpatient presumably will. We catheter in for the time being presumably will be going to rehab center for which they can do with the Bethea catheter there. 4. Weakness and unsteadiness is a major problem now receiving occupational therapy and physical therapy. 5. History of a tubular adenoma history of requiring into colonoscopy will discuss with surgeon unlikely that this will occur here but this could be arranged at a later date. 6. Patient is being worked up for evaluation of pituitary adenoma. Additionally this to be evaluated further as an outpatient will be needing to see biofuels production manager and a perhaps eventually neurosurgeon pending 7. Cardiac status still on known. He had slightly elevated troponins. All these affects may well be due to his acute kidney injury and his rhabdomyolysis he will require further workup as an outpatient presumably a stress test Quality VTE Deep Vein Thrombosis/Pulmonary Embolism Present on Admission: No
[2019-04-09] MEDS: METOPROLOL IR 25 MG TABLET 12.5 MG PO ×2 (09:16→21:14)
[2019-04-09] MEDS: ASPIRIN EC 81 MG TABLET PO (09:16)
[2019-04-09] MEDS: ACETAMINOPHEN 325 MG TABLET 650 MG PO (09:17)
[2019-04-09] MEDS: POTASSIUM CHLORIDE 20 MEQ TAB PO (09:17)
[2019-04-09] MEDS: MULTIVIT,CALC,MINS/IRON/FOLIC 1 TABLET 1 TAB PO (09:23)
[2019-04-09] MEDS: MAGNESIUM OXIDE 400 MG TABLET PO (09:23)
[2019-04-09] MEDS: SODIUM CHLORIDE 0.9% FLUSH 10 ML IV ×2 (09:25→21:14)
[2019-04-09 09:35] LABS: Prolactin 9.5 ng/mL (3.7-17.9)
--- NOTE | 2019-04-09 09:48 | PT.IPTN ---
Current Diagnoses Rhabdomyolysis (04/05/19) Physical Therapy Treatment Note M2 PT-IP Current Condition Start: 04/06/19 11:52 Freq: NEEDED Status: Active Protocol: Document 04/06/19 11:16 DCW (Rec: 04/06/19 13:01 DCW [id number]) Physical Therapy Current Condition Current Condition Evaluation Date 04/06/19 Treatment Diagnosis Weakness, ETOH withdraw Onset Date 04/05/19 Weight Bearing Status Weight Bearing Status Full Weight Bearing M3 PT-IP Subjective Start: 04/06/19 11:52 Freq: NEEDED Status: Active Protocol: Document 04/09/19 09:21 LJ (Rec: 04/09/19 09:48 LJ [email or web address]) Subjective Physical Therapy Visit Type Type Treatment Note Visit Start Time 09:21 Visit Stop Time 09:37 Total Visit Minutes 16 Notes Pt sitting in chair agreeable to participate in PT. Therapy Pain Assessment Pain When Pain Assessed During Exercise Pain Present Pain Present Pain Reported M4 PT-IP Mobility and Gait Start: 04/06/19 11:52 Freq: NEEDED Status: Active Protocol: Document 04/09/19 09:21 LJ (Rec: 04/09/19 09:48 LJ [email or web address]) PT-Transfer Assessment Sit to and From Stand Sit to and from Stand Minimal Assistance,Use of Upper Extremities Equipment Transfer Assistive Device Gait Belt,Front Wheeled Walker Transfers Transfer Destination Chair Transfer Ability Level of Assist Contact Guard Assistance Comments Mobility Comments Pt stood with cues for hand placement and Min A. Pt with posterior lean upon standing required cues for posture to stand upright. Pt able to correct lean after cues. Pt required cues to back up to chair while keeping walker close, feeling legs on back of chair and reaching for chair arm for controlled descent. Gait Assessment Gait Gait Assistance Required: Contact Guard Assist,1 Person Assist Distance (Feet) 120 Assistive Devices Assistive Device Gait Belt,Front Wheeled Walker Orthotic/Prosthetic Devices or Brace: No Gait Deviations General Gait Pattern Antalgic,Decreased Stride Length,Decreased Feet Clearance,Flexed Trunk,Step-to Gait Factors Limiting Gait Function Factors Limiting Gait Function Decreased Activity Tolerance, Decreased Strength,Limited Range of Motion,Pain,Poor Balance,Poor Safety Awareness Comments Gait Comments Pt uses small steps to advance gait. C/o pain with greater knee flexion during ambulation . No LOB this session M5 PT-IP Objective Assessments Start: 04/06/19 11:52 Freq: NEEDED Status: Active Protocol: Document 04/06/19 11:16 DCW (Rec: 04/06/19 13:01 DCW [id number]) Orientation Orientation/Cognition Level of Alertness Alert Orientation Name,Birthday,Month,Date,Year, Place,Situation Language Function Ability No Deficits Noted Safety Awareness Understands Safety Issues Memory Description Short Term Impaired Comments Pt unable to remember most of the few days prior to admission Gross Range of Motion Lower Extremity ROM Assessment Bilaterally Impaired Impairments Limited due to weakness and R hip pain Strength Lower Extremity Strength Assessment Bilaterally Impaired Hip 3-/5 Knee 4-/5 Comments Strength Comments Pt hip MMT limited due to R hip pain when pt attempted to move leg. Pt unable to flex either hip against gravity. Coordination Assessment Assessment Coordination Comments Pt displays tremor with all activity. M6 PT-IP Treatment Start: 04/06/19 11:52 Freq: NEEDED Status: Active Protocol: Document 04/09/19 09:21 LJ (Rec: 04/09/19 09:48 LJ [email or web address]) Physical Therapy Treatment Exercises Exercises Ankle Pumps,Gluteal Sets,Quad Sets,Seated Knee Flexion/ Extension M7 PT-IP Assessment and Plan Start: 04/06/19 11:52 Freq: NEEDED Status: Active Protocol: Document 04/09/19 09:21 LJ (Rec: 04/09/19 09:48 LJ [id number]) PT Summary Assessment and Plan Potential Rehabilitation Potential Fair Status of Condition at Evaluation Evolving Summary Impairments Pain,Strength,Coordination, Transfers,Gait,Activity Tolerance Assessment Summary Pt is Min A for sit-stand and CGA for stand-sit. Pt increased gait distance to ~ 120ft with FWW/CGA without any LOB or need for rest breaks. Goals Bed Mobility Goal Independent Transfer Goal Independent Gait Goal Standby Assistance Gait Distance 100 Days to Meet Goals 4 Frequency of Treatment Frequency Of Treatment Once a Day Treatment Plan Physical Therapy Treatment Plan Transfer Training,Gait Training,Therapeutic Exercise, Balance Retraining, Neuromuscular Re-ed Recommendations To Nursing Amount of Assist Needed Standby Assistance Discharge Recommendations PT Discharge Recommendations Home Health,SNF Rehab
--- NOTE | 2019-04-09 11:36 | OT.IP.TRT ---
Current Diagnoses Rhabdomyolysis (04/05/19) Occupational Therapy Treatment Note M2 OT-IP Current Condition Start: 04/07/19 17:18 Freq: Status: Active Protocol: Document 04/07/19 17:19 [facility]GR (Rec: 04/07/19 17:36 CGR [id number]) Occupational Therapy Current Condition Current Condition Evaluation Date 04/07/19 Treatment Diagnosis acute kidney injury, rhabdomyolysis, hypotension, ETOH withdrawl Diagnosis Onset Date 04/05/19 M3 OT- IP Subjective and Pain Start: 04/07/19 17:18 Freq: Status: Active Protocol: Document 04/09/19 12:29 [facility] (Rec: 04/09/19 12:44 [facility] [id number]) OT- Subjective Occupational Therapy Visit Type Type Treatment Note Visit Start Time 10:55 Visit Stop Time 11:36 Total Visit Minutes 41 Occupational Therapy Visit Comments Patient Comments Pt feels not able to care for himself at home and wanting to go to skilled rehab. Patient/Caregiver Goals To get stronger in rehab so able to do things fro himself and not fall. OT Pain Assessment Pain When Pain Assessed At Rest Pain Present Pain Present Pain Reported M4 OT- IP ADL's Start: 04/07/19 17:18 Freq: Status: Active Protocol: Document 04/09/19 12:29 [facility] (Rec: 04/09/19 12:44 [facility] [id number]) OT HVB-Fmbw-Paxtydo General Evaluation Self-Feeding Ability Independent OT ADL-Grooming General Evaluation Grooming Ability Standby Assistance Comments OT Grooming Comments pt able to comb his hair while sitting in the recliner. OT ADL-Dressing General Eval Lower Body Dressing Ability Standby Assistance Areas Needing Assistance Socks Comments OT Dressing Comments Pt able to kristina/doff his socks while sitting from the recliner and increased time and difficulty. OT ADL-Toileting Comments OT Toileting Comments [place] in. M5 OT- IP IADL's Start: 04/07/19 17:18 Freq: Status: Active Protocol: Document 04/07/19 17:19 CGR (Rec: 04/07/19 17:36 CGR [id number]) OT-Instrumental Activities of Daily Living Deficits IADL Deficits Identified Deficits Home Safety Awareness Awareness of Need for Assistance at Home Decreased Awareness Ability to Problem Solve Emergency Unable to Problem Solve Situations Home Safety Comments Pt on 04/09 able to answer all home safety questions with good accuracy. M6 OT- IP Functional Cognition Start: 04/07/19 17:18 Freq: Status: Active Protocol: Document 04/09/19 12:29 [facility] (Rec: 04/09/19 12:44 [facility] [id number]) Cognitive Factors Limiting Selfcare Function Cognitive Ability Level of Alertness Alert Patient Orientation Name,Month,Date,Year,Day of Week,Place,Situation Attention Span Ability Capable of Focused Attention, Capable of Sustained Attention Ability to Follow Commands Able to Follow One Step Commands Memory Description Short Term Impaired Problem Solving Ability Needs Assist to Identify Solutions Executive Function Ability Unable to Switch Focus,Unable to Filter Distractions,Unable to Organize Plans,Unable to Remember Details Cognitive Tests SLUMS Pt scored 20/30 only able to recall 5 animals in one minute , recalled 4/5 objects after time passed, not able to say 4 number value backwards, not able to draw a clock or hour hands, able to answer 3/4 questions after paragraph read , pt's score implies borderline dementia based on pt's level of education. Pt Sodium level still low which may also affect his cognition. Cognitive Comments Cognitive Assessment Comments Pt scored 275 seconds and MODA vc for [place] making B which implied pt has sever impairment for mental flexibility, visual attentions , executive function and speed of processing and recommended that pt not drive at this time. Pt is agreement that he will not drive at this time. M7 OT- IP Mobility and Balance Start: 04/07/19 17:18 Freq: Status: Active Protocol: Document 04/09/19 12:29 [facility] (Rec: 04/09/19 12:44 [facility] [id number]) OT- Bed Mobility Assessment Sit to Supine Sit to Supine Assist Minimal Assistance OT-Transfer Assessment Sit to and From Stand Sit to and from Stand Minimal Assistance Devices Transfer Assistive Devices Gait Belt,Front Wheeled Walker Comments Mobility Comments Practiced safety and educated on sequence for pt to come to stand. Pt tends to lean on his heels and posterior lean and is a high fall risk. M8 OT- IP Objective Assessments Start: 04/07/19 17:18 Freq: Status: Active Protocol: Document 04/07/19 17:19 [facility] (Rec: 04/07/19 17:36 [facility]GR [id number]) OT Gross Range of Motion Upper Extremity Range of Motion Assessment Within Functional Limits ROM Impairments B shlds 0-110 OT Strength Upper Extremity Strength Assessment Within Functional Limits Comments Strength Comments 4/5 throughout. No weakness noted. OT- Coordination Assessment Upper Extremity Finger to Nose Test Within Functional Limits Finger Tapping Test Within Functional Limits OT-Muscle Tone Assessment Muscle Tone WNL Yes OT Sensation Assessment Edema Edema Absent M9 OT- IP Assessment and Plan Start: 04/07/19 17:18 Freq: Status: Active Protocol: Document 04/09/19 12:29 [facility] (Rec: 04/09/19 12:44 [facility] [id number]) OT Summary Assessment and Plan Potential Rehabilitation Potential Good Analytic Complexity at Evaluation Moderate Summary OT Impairments Pain,Range of Motion,Strength, Balance,Functional Cognition, Functional Mobility,Grooming, Dressing,Toileting,Bathing, Toilet Transfers,Shower Transfers Progress Towards Goals Progressing Toward Goals Assessment Summary Pt continues to have decreased cognition, safety awareness, balance and having to use FWW now in addition to assist for balance. Pt will benefit from skilled rehab at this time as a high fall risk and not safe to go home alone to take care of himself. Goals Self-Feeding Goal Independent Grooming Goal Independent Dressing Goal Independent Toileting Goal Independent Bathing Goal Independent Toilet Transfer Goal Independent Shower Transfer Goal Independent Days to Meet Goals 7 Frequency of Treatment Frequency Of Treatment Once a Day Treatment Plan OT Treatment Plan ADL Training,Functional Cognition Training,Functional Mobility,Patient/Family Education,Discharge Planning Other Treatment Recommendations and Next ADl's Treatment Focus Discharge Recommendations OT Discharge Recommendations SNF Rehab Home Equipment Needs TBD
--- NOTE | 2019-04-09 12:10 | ST.IPSCREEN ---
Order received for swallowing evaluation. Nursing reported that the pt has been on a regular diet without overt s/sx aspiration. No lung sounds reported. No elevated WBC reported. MRI negative for infarct or intracranial hemorrhage.. Pt was sitting up in bedside chair with OT present. Pt was provided with a regular texture snack and thin liquids. He self-fed the cookie and liquids. Pt demonstrated no s/sx dysphagia. Formal swallowing evaluation not indicated at this time.
--- NOTE | 2019-04-09 14:41 | CM.DANOTE ---
DCP/continued: Reviewed chart. Received notification from therapy that SNF recommended. Met with patient explained CM/SW role. Patient alert and oriented and agreeable to short SNF stay. Provided patient with contracted SNF list and first choice is [facility]. Placed call to September at [facility] requesting review. In addition, provided patient with community resources for outpatient ETOH treatment. P: [facility] reviewing for admit. LORENZO Hoffman
[2019-04-09 15:34] VITALS: BP 106/66; PULSE 99; RESP 20; TEMP 36.4; O2SAT 98
--- NOTE | 2019-04-09 16:11 | P.CONS_ITS ---
History of Present Illness Consult details Date Patient Seen: 04/09/19 Time Patient Seen: 16:11 Chief complaint: Altered Mental Status Reason for consult: Tubular adenoma Narrative: 73-year-old male admitted to the hospital for altered mental status. Unclear circumstances was found down and rhabdo with JORGE. For his clinically improving in the intensive care unit hemodynamically stable. Will likely be discharging to a rehab shortly. Has a history of colonoscopy 6 years ago that was significant for an adenomatous polyp and he has not received further follow- up. [facility] Medical History Dyslipidemia (Acute) Hypertension (Acute) Family History Father Heart disease Mother Heart disease Social History household members: none Smoking Status: Former smoker alcohol intake: former Meds Home Medications and Allergies Home Medications Medication Instructions Recorded Confirmed Type aspirin 81 mg PO DAILY #0 12/25/10 04/05/19 History hydrochlorothiazide 25 mg PO QDAY #90 tab 06/28/17 04/05/19 Rx fluticasone propionate 1 spray INTRANASAL QDAYP PRN #16 gm 07/10/18 04/05/19 Rx metoprolol tartrate 50 mg tablet 50 mg PO BID #180 tab 09/17/18 04/05/19 Rx atorvastatin 10 mg PO BEDTIME 04/05/19 04/05/19 History potassium chloride 60 meq PO BEDTIME 04/05/19 04/05/19 History potassium chloride [Klor-Con M20] 80 meq PO DAILY 04/05/19 04/05/19 History nifedipine 30 mg tablet,extended 30 mg PO QDAY #90 tab 04/09/19 Rx release Allergies Allergy/AdvReac Type Severity Reaction Status Date / Time No Known Drug Allergies Allergy Unverified 04/05/19 10:31 Review of Systems Review of Systems ROS Unobtainable: All systems reviewed & are unremarkable except as noted in HPI and below Exam Vital Signs (past 8 hours): - 04/09/19 08:30 04/09/19 15:34 Temperature 97.8 F 97.6 F Pulse Rate 91 H 99 H Respiratory Rate 18 20 Blood Pressure 122/69 106/66 Pulse Oximetry 99 98 Oxygen Delivery Method Room Air Oxygen Flow Rate 0 Narrative Exam Narrative: General-no acute distress HEENT-moist mucous membranes, no scleral icterus Neck-supple, no lymphadenopathy Chest- non labored respirations, clear to auscultation bilaterally Cardiac-regular rate no peripheral edema Abdomen-soft, nontender, non distended Extremities-warm, well perfused Neurological-alert no focal deficits Objective Labs Result Diagrams: 04/09/19 04:45 04/09/19 04:45 Labs: Laboratory Results - last 24 hr 04/09/19 04/09/19 04/09/19 04:45 04:45 06:45 WBC 4.6 RBC 2.98 L Hgb 10.0 L Hct 28.3 L MCV 95.0 MCH 33.5 MCHC 35.3 RDW 12.4 Plt Count 144 L Neut % (Auto) 62.5 Lymph % (Auto) 20.1 L Craven % (Auto) 13.5 Eos % (Auto) 3.1 Baso % (Auto) 0.8 Neut # (Auto) 2900 Lymph # (Auto) 900 L [place] # (Auto) 600 Eos # (Auto) 100 Baso # (Auto) 0 Sodium 131 L Potassium 4.3 Chloride 100 Carbon Dioxide 26 BUN 6 L Creatinine 0.60 L Estimated GFR > 60.0 BUN/Creatinine Ratio 10.0 Glucose 91 Calcium 8.0 L Magnesium 1.6 Prolactin 9.5 Assessment & Plan Assessment and plan (1) Tubular adenoma: Current visit: Yes Status: Acute Assessment & Plan narrative: 73-year-old male the admitted to the hospital for altered mental status who's clinically improving in the intensive care unit. Has an history of adenomatous polyp found on colonoscopy 6 years ago who needs a repeat colonoscopy. No indication for acute inpatient colonoscopy. Our surgical office will facilitate scheduling him at his earliest convenience.
[2019-04-09] MEDS: SENNOSIDES 8.6 MG TABLET 17.2 MG PO (21:13)
[2019-04-09] MEDS: ATORVASTATIN 10 MG TABLET PO (21:14)
[2019-04-09 21:16] VITALS: BP 111/63; PULSE 96
--- NOTE | 2019-04-09 22:00 | PC.NURSE ---
Evening Shift: Pt is alert and oriented. Denies pain, tolerating diet, denies nausea. Pt OOB to chair for dinner. Pt on RA, VSS. Call light in reach. Using call light appropriately for assistance with transfers. Uneventful shift. Will continue to monitor, notify MD with changes.
[2019-04-10] VITALS: BP 86/42; PULSE 20; RESP 16; TEMP 37.3; O2SAT 94
[2019-04-10 00:50] VITALS: BP 102/59; PULSE 86; RESP 18; O2SAT 95
[2019-04-10 08:49] VITALS: BP 103/63; PULSE 88; RESP 16; TEMP 36.8; O2SAT 97
[2019-04-10] MEDS: ASPIRIN EC 81 MG TABLET PO (08:55)
[2019-04-10] MEDS: POTASSIUM CHLORIDE 20 MEQ TAB PO (08:55)
[2019-04-10] MEDS: METOPROLOL IR 25 MG TABLET 12.5 MG PO ×2 (08:56→20:43)
[2019-04-10] MEDS: MAGNESIUM OXIDE 400 MG TABLET PO (08:56)
[2019-04-10] MEDS: POLYETHYLENE GLYCOL 3350 17 GM POWD.PACK PO (08:56)
[2019-04-10] MEDS: MULTIVIT,CALC,MINS/IRON/FOLIC 1 TABLET 1 TAB PO (08:56)
[2019-04-10] MEDS: SODIUM CHLORIDE 0.9% FLUSH 10 ML IV ×2 (08:57→20:43)
--- NOTE | 2019-04-10 10:25 | PM.PN.1 ---
Subjective Subjective Date Patient Seen: 04/10/19 Time Patient Seen: 10:25 Interval history: Hospital day 7. Patient had orthopedic consult done by Dr. Fernandez on 04/08/2019. X-ray negative. He felt that this was probably muscular possibly related to his rhabdo patient is weight-bearing as tolerated. Plan was to do a MRI if he yet persisting thigh pain with weight-bearing. Patient states his night pain has improved but still present. Pain mostly to anterior thigh. He states that hurts primarily when he moves his leg actively. He has been able to weight-bearing without noticeable increase in pain. Exam Vital Signs (past 8 hours): Oxygen Delivery Method Room Air Oxygen Flow Rate 0 Narrative Exam Narrative: Alert, in no acute distress lying in bed. Right leg. No tenderness on palpation of thigh musculature or stress of femur. Hip ROM notes flexion to 90? and internal external rotation without pain. No pain with range of motion of knee. He does have increased anterior thigh pain with flexion of thigh against resistance. Good pulses distally. Objective Labs Result Diagrams: 04/09/19 04:45 04/09/19 04:45 Assessment & Plan Assessment & Plan narrative: Plan: Patient has anterior right thigh pain appears to be muscular and apparently improving. I do not see need for MRI at this time. Patient is apparently scheduled go to SNF possibly later today. Will sign out for ortho follow-up at this time unless further problem or increased pain. Quality VTE Deep Vein Thrombosis/Pulmonary Embolism Present on Admission: No
--- NOTE | 2019-04-10 10:42 | PT.IPTN ---
Current Diagnoses Benign neoplasm, unspecified site (04/05/19) Rhabdomyolysis (04/05/19) Physical Therapy Treatment Note M2 PT-IP Current Condition Start: 04/06/19 11:52 Freq: NEEDED Status: Active Protocol: Document 04/06/19 11:16 [facility] (Rec: 04/06/19 13:01 [facility] [id number]) Physical Therapy Current Condition Current Condition Evaluation Date 04/06/19 Treatment Diagnosis Weakness, ETOH withdraw Onset Date 04/05/19 Weight Bearing Status Weight Bearing Status Full Weight Bearing M3 PT-IP Subjective Start: 04/06/19 11:52 Freq: NEEDED Status: Active Protocol: Document 04/10/19 10:42 [facility] (Rec: 04/10/19 12:14 [facility] [id number]) Subjective Physical Therapy Visit Type Type Treatment Note Visit Start Time 10:42 Visit Stop Time 11:33 Total Visit Minutes 46 Number of SCIENCE LIAISON Visits 4 Physical Therapy Visit Comments Patient Comments Willing to work with therapy. Therapy Pain Assessment Pain When Pain Assessed During Exercise Pain Present Pain Present Pain Reported Location Right Upper Leg Scale Used did not state Pain Behaviors Guarding,Holding Area Pain Management Techniques Modification of Treatment M4 PT-IP Mobility and Gait Start: 04/06/19 11:52 Freq: NEEDED Status: Active Protocol: Document 04/10/19 10:42 [facility] (Rec: 04/10/19 12:14 [facility] [id number]) PT-Bed Mobility Assessment Rolling Type of Rolling Roll to Right Supine to Sit Supine to Sit Minimal Assistance,Head of Bed Elevated Scooting Scooting to Edge of Bed Standby Assistance PT-Transfer Assessment Sit to and From Stand Sit to and from Stand Contact Guard Assistance,1 Person Assistance,Use of Upper Extremities Equipment Transfer Assistive Device Gait Belt,Front Wheeled Walker Transfers Transfer Destination Bed,Chair Transfer Ability Level of Assist Contact Guard Assistance Comments Mobility Comments Pt required cues for rolling and Min A for sup-sit. Pt requires using UE's to stand with CGA w/o posterior lean. Pt stood at sink to brush teeth and required use of LUE while brushing teeth as well as using trunk against counter to balance if LUE was removed from counter. Pt left at sink with OT to comb hair. Gait Assessment Gait Gait Assistance Required: Contact Guard Assist,1 Person Assist Distance (Feet) 160 Assistive Devices Assistive Device Gait Belt,Front Wheeled Walker Orthotic/Prosthetic Devices or Brace: No Gait Deviations General Gait Pattern Antalgic,Decreased Stride Length,Decreased Feet Clearance,Flexed Trunk,Step-to Gait Factors Limiting Gait Function Factors Limiting Gait Function Decreased Activity Tolerance, Decreased Strength,Limited Range of Motion,Pain,Poor Balance,Poor Safety Awareness Comments Gait Comments Pt with improved with step length during gait and requires CGA with cues to stay inside walker during turns. Pt required standing rest breaks during gait. PT-Balance Assessment Balance Tests Bergman Balance Test Score 23/56 M5 PT-IP Objective Assessments Start: 04/06/19 11:52 Freq: NEEDED Status: Active Protocol: Document 04/06/19 11:16 [facility] (Rec: 04/06/19 13:01 [facility] [id number]) Orientation Orientation/Cognition Level of Alertness Alert Orientation Name,Birthday,Month,Date,Year, Place,Situation Language Function Ability No Deficits Noted Safety Awareness Understands Safety Issues Memory Description Short Term Impaired Comments Pt unable to remember most of the few days prior to admission Gross Range of Motion Lower Extremity ROM Assessment Bilaterally Impaired Impairments Limited due to weakness and R hip pain Strength Lower Extremity Strength Assessment Bilaterally Impaired Hip 3-/5 Knee 4-/5 Comments Strength Comments Pt hip MMT limited due to R hip pain when pt attempted to move leg. Pt unable to flex either hip against gravity. Coordination Assessment Assessment Coordination Comments Pt displays tremor with all activity. M6 PT-IP Treatment Start: 04/06/19 11:52 Freq: NEEDED Status: Active Protocol: Document 04/10/19 10:42 [facility] (Rec: 04/10/19 12:14 [facility] [id number]) Physical Therapy Treatment Exercises Exercises Ankle Pumps,Gluteal Sets,Quad Sets,Seated Knee Flexion/ Extension M7 PT-IP Assessment and Plan Start: 04/06/19 11:52 Freq: NEEDED Status: Active Protocol: Document 04/10/19 10:42 [facility] (Rec: 04/10/19 12:14 [facility] [id number]) PT Summary Assessment and Plan Potential Rehabilitation Potential Fair Status of Condition at Evaluation Evolving Summary Impairments Pain,Strength,Coordination, Transfers,Gait,Activity Tolerance Assessment Summary Pt is Min A for bed mobility supine to sit. Pt able to stand CGA w/o posterior lean but requires use of UE's and CGA. Pt improved with gait distance and gait quality and was able to increase step length but continues to require CGA and cues to stay inside walker. Pt also required standing rest breaks during ambulation. Pt scored 23/56 on Bergman Balance Test. Pt would benefit from SNF rehab to improve strength and functional mobility for independence. Goals Bed Mobility Goal Independent Transfer Goal Independent Gait Goal Standby Assistance Gait Distance 100 Days to Meet Goals 4 Frequency of Treatment Frequency Of Treatment Once a Day Treatment Plan Physical Therapy Treatment Plan Transfer Training,Gait Training,Therapeutic Exercise, Balance Retraining, Neuromuscular Re-ed Recommendations To Nursing Amount of Assist Needed 1 Person Assist Discharge Recommendations PT Discharge Recommendations SNF Rehab
--- NOTE | 2019-04-10 11:35 | OT.IP.TRT ---
Current Diagnoses Benign neoplasm, unspecified site (04/05/19) Rhabdomyolysis (04/05/19) Occupational Therapy Treatment Note M2 OT-IP Current Condition Start: 04/07/19 17:18 Freq: Status: Active Protocol: Document 04/07/19 17:19 CGR (Rec: 04/07/19 17:36 CGR [id number]) Occupational Therapy Current Condition Current Condition Evaluation Date 04/07/19 Treatment Diagnosis acute kidney injury, rhabdomyolysis, hypotension, ETOH withdrawl Diagnosis Onset Date 04/05/19 M3 OT- IP Subjective and Pain Start: 04/07/19 17:18 Freq: Status: Active Protocol: Document 04/10/19 16:15 [facility] (Rec: 04/10/19 16:28 [facility] [id number]) OT- Subjective Occupational Therapy Visit Type Type Treatment Note Visit Start Time 11:35 Visit Stop Time 12:14 Total Visit Minutes 39 Occupational Therapy Visit Comments Patient Comments Pt just finishing up with [employer] and able to complete grooming needs with pt. Patient/Caregiver Goals Pt wanting to go to skilled rehab as feel not capable of caring for himself at this time. OT Pain Assessment Pain When Pain Assessed At Rest Pain Present Pain Present Pain Reported M4 OT- IP ADL's Start: 04/07/19 17:18 Freq: Status: Active Protocol: Document 04/10/19 16:15 [facility] (Rec: 04/10/19 16:28 [facility] [id number]) OT ADL-Grooming General Evaluation Grooming Ability Standby Assistance Comments OT Grooming Comments Able to do while standing , vc not to lean on the counter as tipping the FWW forwards. 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 OT ADL-Bathing Comments OT Bathing Comments Pt refused as just showered yesterday. M5 OT- IP IADL's Start: 04/07/19 17:18 Freq: Status: Active Protocol: Document 04/07/19 17:19 [facility] (Rec: 04/07/19 17:36 [facility]GR [id number]) OT-Instrumental Activities of Daily Living Deficits IADL Deficits Identified Deficits Home Safety Awareness Awareness of Need for Assistance at Home Decreased Awareness Ability to Problem Solve Emergency Unable to Problem Solve Situations Home Safety Comments 04/10 Educated pt of suggestion to help prevent from falls at home, night light in the bathroom, get rid of throw rugs, and have pt focus on one thing at a time, M6 OT- IP Functional Cognition Start: 04/07/19 17:18 Freq: Status: Active Protocol: Document 04/10/19 16:15 [facility] (Rec: 04/10/19 16:28 [facility] [id number]) Cognitive Factors Limiting Selfcare Function Cognitive Comments Cognitive Assessment Comments Today pt's [place] Making Part B improved to 143 seconds however still implies significant impairments for mental flexibility, visual attentions, speed of process, however much improved from yesterday's time. M7 OT- IP Mobility and Balance Start: 04/07/19 17:18 Freq: Status: Active Protocol: Document 04/10/19 16:15 [facility] (Rec: 04/10/19 16:28 [facility] [id number]) OT- Bed Mobility Assessment Sit to Supine Sit to Supine Assist Minimal Assistance OT-Transfer Assessment Sit to and From Stand Sit to and from Stand Moderate Assistance,Maximum Assistance Devices Transfer Assistive Devices Gait Belt,Front Wheeled Walker Comments Mobility Comments Pt not able to stand from low chair and needing MAX A to transfer to the bed. Pt heavily needs use of his arms to help to stand. OT- Gait Assessment Gait Gait Assistance Required: Contact Guard Assist Assistive Devices Assistive Device Gait Belt,Front Wheeled Walker Comments Gait Ability Comments Pt better while walking with FWW today and CGA for occasional assist for steadying. OT- Balance Assessment Sitting Balance and Reactions Static Sitting Balance Ability Good Dynamic Sitting Balance Ability Fair M8 OT- IP Objective Assessments Start: 04/07/19 17:18 Freq: Status: Active Protocol: Document 04/07/19 17:19 [facility] (Rec: 04/07/19 17:36 [facility] [id number]) OT Gross Range of Motion Upper Extremity Range of Motion Assessment Within Functional Limits ROM Impairments B shlds 0-110 OT Strength Upper Extremity Strength Assessment Within Functional Limits Comments Strength Comments 4/5 throughout. No weakness noted. OT- Coordination Assessment Upper Extremity Finger to Nose Test Within Functional Limits Finger Tapping Test Within Functional Limits OT-Muscle Tone Assessment Muscle Tone WNL Yes OT Sensation Assessment Edema Edema Absent M9 OT- IP Assessment and Plan Start: 04/07/19 17:18 Freq: Status: Active Protocol: Document 04/10/19 16:15 [facility] (Rec: 04/10/19 16:28 [facility] [id number]) OT Summary Assessment and Plan Potential Rehabilitation Potential Good Analytic Complexity at Evaluation Moderate Summary OT Impairments Pain,Range of Motion,Strength, Balance,Functional Cognition, Functional Mobility,Grooming, Dressing,Toileting,Bathing, Toilet Transfers,Shower Transfers Progress Towards Goals Progressing Toward Goals Assessment Summary Pt still needing assist for dressing, toileting, and bathing needs and have decreased balance and is a high risk for falls. Pt would benefit from skilled rehab prior to going home. Goals Self-Feeding Goal Independent Grooming Goal Independent Dressing Goal Independent Toileting Goal Independent Bathing Goal Independent Toilet Transfer Goal Independent Shower Transfer Goal Independent Days to Meet Goals 7 Frequency of Treatment Frequency Of Treatment Once a Day Treatment Plan OT Treatment Plan ADL Training,Functional Cognition Training,Functional Mobility,Patient/Family Education,Discharge Planning Other Treatment Recommendations and Next Shower Treatment Focus Discharge Recommendations OT Discharge Recommendations SNF Rehab Home Equipment Needs TBD
[2019-04-10 12:02] VITALS: BMI 24.5
--- NOTE | 2019-04-10 12:18 | DIET.PN ---
Dietary Progress Note Assessment: 73y M admitted for altered mental status, JORGE, rhabdo c hx of multiple falls and daily 6-pack beer/d etoh consumption referred to nutrition for recent reported wt loss. Pt POs average 50-75% as pt has low appetite r/t hospital meal timing vs his usual intake. Usual intake: B: [employer] killer bread c PB, cheddar cheese, juice. L: burger and beer from restaurant such as [employer] Picks up 6 pack beer after lunch and only consumes that before going to bed around 8pm. Discussed regular excessive etoh use and effect on nutrition status. Body unable to absorb Vit B1 causing altered mental status which sometimes is not reversible. Importance of reducing/eliminating etoh use, importance of daily morning MVI to replete and sustain stores of nutrients. Discussed nutrition in beer, devoid of PRO, need to supplement food late in day, not substituting beer kcals for food kcals. Pt receptive. HT: 187.9cm WT: 86.5kg UBW: 90kg BMI: 24.5 Labs: Hgb 10 L, hct 28.3 L, Na 131 L, BUN 6 L, Cr 0.6 L, TCK 581 H MNA: 12 Macario: 21 Nutrition Diagnosis: Increased nutrient needs (thiamin, folate, protein) r/t excessive etoh use aeb pt skips dinner daily, drinks 6 pack beer daily in evening, pt found down c altered mental status and rhabdo. Interventions: 1. Pt to take daily MVI in am to support thiamin and folate intake. 2. Pt to eat protein serving in evening before bed- hb egg, peanut butter sandwich, cheese. Diet Order: Cardiac EER: 2300kcal, 86g PRO (1g/kg elder) Monitoring/Evaluations: as needed
--- NOTE | 2019-04-10 13:16 | PM.PN.1 ---
Subjective Subjective Date Patient Seen: 04/10/19 Time Patient Seen: 08:17 Interval history: Rhabdomyolysis Patient feeling better. Getting stronger. Still somewhat unsteady. Still requiring walker when he ambulates. Still requiring cysts when he does ambulate. Appetite has improved. Mental status changes have improved significantly to back to where he feels is normal. He does feel stronger shows right thigh muscle discomfort. Anticipate being transferred to a intermediate facility tomorrow to get ongoing physical rehab so they can recent return to the living by himself as he had in the past. Exam Vital Signs (past 8 hours): - 04/10/19 08:49 Temperature 98.3 F Pulse Rate 88 Respiratory Rate 16 Blood Pressure 103/63 Pulse Oximetry 97 Oxygen Delivery Method Room Air Oxygen Flow Rate 0 Narrative Exam Narrative: Patient is sitting upright in a chair eating his breakfast a without difficulty. He appears usual self converses usual self alert and oriented x3. Neurologic exam is otherwise normal in the limitation of him being seated. Did not test his gait. Tolerating a Bethea catheter. Right thigh is slightly tender Objective Labs Result Diagrams: 04/09/19 04:45 04/09/19 04:45 Labs: Labs reviewed. Endocrine workup forthcoming Assessment & Plan Assessment & Plan narrative: 1. Rhabdomyolysis improved significantly. 2. Acute kidney injury secondary to 1. And dehydration resolved with hydration. 3. Altered mental status secondary to rhabdomyolysis, acute kidney injury, and electrolyte imbalance. 4. Rhabdomyolysis is resolving and improving. 5. Presumed BPH requiring Bethea. This to be removed at a later date when he is more ambulatory at the rehab center. 6. Endocrine workup forthcoming will need referral to [facility] as an outpatient will probably need further imaging studies as per specialist. 7. Patient also will be needing a stress test as an outpatient. Perhaps a Persantine stress test would be more reasonable given patient's limited physical activities yet to be determined once he stabilized at the intermediate facility. 8. Patient presumably to be transferred tomorrow Bethea in place requiring a occupational therapy and physical therapy Quality VTE Deep Vein Thrombosis/Pulmonary Embolism Present on Admission: No
[2019-04-10 15:31] VITALS: BP 103/67; PULSE 84; RESP 18; TEMP 36.7; O2SAT 98
[2019-04-10] MEDS: ACETAMINOPHEN 325 MG TABLET 650 MG PO (17:24)
--- NOTE | 2019-04-10 18:06 | PC.NURSE ---
1700 Pt taken to surgery, report given to ADOLESCENT SPECIALIST and Dr. Bradley, Anesthesiologist. Pt with waxing and waning mental status. Pt initially A and O X4, but became confused about her surroundings and thought she was in a kitchen just prior to going to surgery. Pt with skin intact, 2 L NC. Denied nausea. Pt was in a-fib RVR, HR up to 120s. Pt's niece called after pt had left for surgery, pt's niece gave updated contact information. Niece's phone number updated in admission assessment and admitting called to add cell phone to contact information.
--- NOTE | 2019-04-10 18:08 | PC.NURSE ---
Evening Shift Note: Pt alert and oriented, reports pain in R quad when standing or with contraction of muscle for mobility. Given tylenol. Denies pain at rest. Pt denies nausea, tolerating diet, reports BM today. Pt with indwelling catheter for urinary retention, clear yellow urine. Pt aware of current plan to discharge to [facility] rehab facility, likely tomorrow. Pt otherwise with no complaints, helped back to bed from chair, call light in reach, using appropriately to call for assistance with transfers and with other concerns. Will continue to monitor, notify MD with changes.
[2019-04-10] MEDS: SENNOSIDES 8.6 MG TABLET 17.2 MG PO (20:43)
[2019-04-10] MEDS: ATORVASTATIN 10 MG TABLET PO (20:43)
[2019-04-10 20:44] VITALS: BP 104/56; PULSE 82; O2SAT 94
[2019-04-10 23:40] VITALS: BP 105/61; PULSE 86; RESP 17; TEMP 37; O2SAT 92
[2019-04-11 05:23] LABS: Add Manual Diff / Slide Review NO; Basophils Absolute Auto 0 /uL (0-100); Basophils Percent Auto 0.7 % (0-2); Eosinophils Absolute Auto 300 /uL (0-450); Eosinophils Percent Auto 5.9 % (2-4); Hematocrit 27.8 % (41-53); Hemoglobin 9.6 g/dL (13.5-17.5); Lymphocytes Absolute Auto 1200 /uL (1100-4500); Lymphocytes Percent Auto 22.5 % (25-40); Mean Corpuscular HGB Conc 34.5 % (30-36); Mean Corpuscular Hemoglobin 33.1 PG (26-34); Monocytes Absolute Auto 700 /uL (0-900); Monocytes Percent Auto 13.9 % (3-14); Neutrophils Absolute Auto 2900 /uL (1500-7000); Platelet Count 135 X10^3/uL (150-400); White Blood Cell Count 5.1 X10^3/uL (4.5-11.0)
[2019-04-11 05:26] LABS: BUN Creatinine Ratio 8.3 (6-22); Blood Urea Nitrogen 5 mg/dL (9-20); Calcium 7.9 mg/dL (8.4-10.2); Carbon Dioxide 26 mmol/L (22-32); Chloride 100 mmol/L (98-107); Creatine Kinase 180 U/L (55-170); Estimated Glomerular Filt Rate > 60.0 mL/min (>60); Glucose 83 mg/dL (80-110); HEMOLYSIS < 15 (0-50); Potassium 3.5 mmol/L (3.4-5.1); Sodium 132 mmol/L (137-145)
[2019-04-11 08:00] VITALS: BP 121/75; PULSE 93; RESP 18; TEMP 37.1; O2SAT 91
--- NOTE | 2019-04-11 09:02 | PM.DS.1 ---
History of Present Illness History of Present Illness Chief complaint: Altered Mental Status Narrative: Altered mental status. Patient admitted through the ER for same. History is somewhat sketchy as per ER doctor and as per patient. As best I can tell. The patient was absent from work today so his employer went to his apartment. The patient was found on the floor not unconscious. Because of his being on the floor paramedics were called he was taken to the emergency room. Patient self has no recollection of how long he was on the floor he thought maybe it was for couple hours. It's unclear to him why he was on the floor. Best taking recall on Tuesday he had some unsteadiness when he walks he thought his from his [employer] normally drinks 6 beers a day so he did not drink after Tuesday. Tuesday he recalls he has some issues with vomiting but he is not clear exactly what else. He believes on today he had some issues with vomiting but he is not clear. Currently he denies any pain whatsoever feels much better now than he did when he was in the ER. Denies any head changes of it visual changes any extremity changes no apparent bruising no history of this in the past. Some question whether not he had alcohol withdrawals in the past details of that are unknown to me. Evaluation emergency room found abnormalities as follows with elevated CK, elevated creatinine, slightly elevated procalcitonin and lactate, nonspecific ST changes on electrocardiogram. He had a normal head CT and otherwise unremarkable lab other than sodium 122. Patient was admitted to the ICU for evaluation monitoring of his rhabdomyolysis, acute kidney injury, electrolyte imbalance, questionable sepsis, questionable type 2 myocardial infarction in that he had slightly elevated troponins. Discharge Providers Provider Date of admission: 04/05/19 12:40 Discharge Date: 04/11/19 Primary care physician: Nolberto Yanez MD Consults: 04/06/19 08:17 Consult to Physical Therapy Evaluate & Treat Comment: Physician Instructions: Evaluate and Treat 04/07/19 10:41 Consult to Occupational Therapy Evaluate & Treat Comment: Physician Instructions: Evaluate and treat 04/07/19 10:42 Consult to Speech Therapy Evaluate & Treat Comment: post CVA Physician Instructions: Evaluate and treat 04/07/19 17:43 Consult to Dietitian, Adult Routine Comment: Reason For Exam: weight loss 04/08/19 09:21 Consult to Orthopedic Surgery Routine Comment: Consulting Provider: Cam[facility] Reason for consultation: right sided thigh pain Has provider been notified: Yes 04/09/19 08:46 Consult to General Surgery Routine Comment: Consulting Provider: Ayad Rios Reason for consultation: colonoscopy, hx/o tubular ad. anemic Discharge provider: Nolberto Yanez MD Summary Hospital Course Discharge Diagnosis: 1. Resolving rhabdomyolysis. 2. Acute kidney injury resolved. 3. Type 2 myocardial infarction. 4. Pituitary adenoma. 5. Pre-existing hypertension stable. 6. History of alcohol misuse. 7. Generalized weakness improving with physical therapy and occupational therapy. Hospital Course: Patient was admitted through the ER for evaluation of weakness and mental status change. He was found to have marked elevated creatine kinase. Blanchard to be secondary to rhabdomyolysis. Given IV fluids and his CK went from over 5000 to under 200 on discharge. Patient was improving but steady fair amount of right thigh pain and weakness and it appeared that he did in fact have resolving rhabdomyolysis. Additionally has acute kidney injury resolved with IV fluids back to a pretty morbid state. He was found to have slightly elevated troponins echocardiogram shows significant decrease in his ejection fraction felt of perhaps a had to go type 2 myocardial infarction. Patient will need a stress test on discharge. Also found to have a pituitary adenoma as per MRI. Endocrine workup being done. Referral will be made to conventional underwriter as an outpatient. Patient also had a urinary obstruction requiring Aguero catheter to to be managed as an outpatient once she gets stabilized at Exam Vital Signs (past 8 hours): - 04/11/19 08:00 Temperature 98.8 F Pulse Rate 93 H Respiratory Rate 18 Blood Pressure 121/75 Pulse Oximetry 91 Oxygen Delivery Method Room Air Oxygen Flow Rate 0 Narrative Exam Narrative: Patient is sitting up in his bedside chair eating his breakfast appears usual self. Neurologic exam is oriented x3. Lungs clear heart regular rhythm no murmur gallop Objective Labs Result Diagrams: 04/11/19 04:47 04/11/19 04:47 Labs: Laboratory Results - last 24 hr 04/11/19 04/11/19 04:47 04:47 WBC 5.1 RBC 2.90 L Hgb 9.6 L Hct 27.8 L MCV 96.0 MCH 33.1 MCHC 34.5 RDW 13.0 Plt Count 135 L Neut % (Auto) 57.0 Lymph % (Auto) 22.5 L [place] % (Auto) 13.9 Eos % (Auto) 5.9 H Baso % (Auto) 0.7 Neut # (Auto) 2900 Lymph # (Auto) 1200 [place] # (Auto) 700 Eos # (Auto) 300 Baso # (Auto) 0 Sodium 132 L Potassium 3.5 Chloride 100 Carbon Dioxide 26 BUN 5 L Creatinine 0.60 L Estimated GFR > 60.0 BUN/Creatinine Ratio 8.3 Glucose 83 Calcium 7.9 L Total Creatine Kinase 180 H D CK is noted down to 180 Hemoglobin stable at 9.6 Discharge Plan Discharge Plan Patient Disposition: SNF Transfer to: [facility] Under care of provider: staff Consult as needed: Dental, Hearing, Mental health, Podiatry and Vision Discharge comment: appt w conventional underwriter ORLIN, for pituitary adenoma appt for nuclear stress test 2 weeks for type II NM aguero RESOLVING rhabdomyologism Discharge orders & Medications Prescriptions: New atorvastatin [Lipitor] 10 mg Tablet 10 mg PO BEDTIME Qty: 100 RF: 0 aspirin 81 mg Tablet,Delayed Release (Dr/Ec) 81 mg PO DAILY Qty: 100 RF: 0 metoprolol tartrate 25 mg Tablet 12.5 mg PO BID Qty: 100 RF: 0 Discontinued aspirin 81 mg Tablet,Chewable 81 mg PO DAILY Qty: 0 RF: 0 hydrochlorothiazide 25 MG tablet 25 mg PO QDAY Qty: 90 RF: 3 Hold Instructions: dec k fluticasone propionate 50 mcg/actuation spray,suspension 1 spray Intranasal QDAYP PRNQty: 16 RF: 2 metoprolol tartrate [Lopressor] 50 mg tablet 50 mg PO BID Qty: 180 RF: 1 nifedipine [Adalat CC] 30 mg tablet extended release 30 mg PO QDAY Qty: 90 RF: 3 potassium chloride 20 mEq Tablet,Er Particles/Crystals 60 meq PO BEDTIME RF: 0 atorvastatin 10 mg tablet 10 mg PO BEDTIME RF: 0 potassium chloride [Klor-Con M20] 20 mEq tablet,ER particles/crystals 80 meq PO DAILY RF: 0 Follow up/Referrals: Nolberto Yanez MD [Primary Care Provider] - Discharge Health Status Multidrug resistant organism: No MDRO Precautions: [place] Diet/Activity/Treatments Diet: Diet as Tolerated Liquid consistency: Normal/Thin Food texture: Regular Activity: PT/OT walker Catheter: 2-way Aguero Catheter comment: d/c prn [facility] Reason for rehabilitation: Recovery r/t decondition Rehab type: Physical therapy and Occupational therapy Restrictions to mobility: unsteady Discharge Data Primary Care Provider: Nolberto Yanez VTE Deep Vein Thrombosis/Pulmonary Embolism Present on Admission: No
[2019-04-11] MEDS: ENOXAPARIN 40 MG/0.4 ML SYRINGE SUBCUT (09:49)
[2019-04-11] MEDS: ASPIRIN EC 81 MG TABLET PO (09:50)
[2019-04-11] MEDS: POLYETHYLENE GLYCOL 3350 17 GM POWD.PACK PO (09:50)
[2019-04-11] MEDS: METOPROLOL IR 25 MG TABLET 12.5 MG PO (09:50)
[2019-04-11] MEDS: MAGNESIUM OXIDE 400 MG TABLET PO (09:50)
[2019-04-11] MEDS: POTASSIUM CHLORIDE 20 MEQ TAB PO (09:50)
[2019-04-11] MEDS: MULTIVIT,CALC,MINS/IRON/FOLIC 1 TABLET 1 TAB PO (09:51)
[2019-04-11] MEDS: SODIUM CHLORIDE 0.9% FLUSH 10 ML IV (09:51)
--- NOTE | 2019-04-11 10:03 | CM.DPC ---
DCP Discharge SNF Per MD, pt is medically stable for d/c to SNF today. SW called [facility] admissions and confirmed they can accept pt today around 1100. JULES met bedside with pt and explained role and discussed plan of SNF today at [facility] around 1100 and pt confirms he is still agreeable with d/c plan before safe return home alone. JULES updated RN and DIRECT CUSTOMER SERVICE REPRESENTATIVE on d/c today. WALLACE HELLER, signed med rec, d/c summary to [facility]. Plan: Patient to d/c to [facility] SNF today via facility van around 1100. LORENZO Oscar
--- NOTE | 2019-04-11 10:54 | PC.NURSE ---
Addendum entered by Hina Hernandez R.N. 04/11/19 11:32: Discharged to [facility] and Report called to [facility]. Original Note: Patient up to eat breakfast. He is going to go to [facility] at 1130. Up with 1 person assist and walker. Patient had a bowel movement this morning and he denies pain or discomfort. Back to bed and resting now. Appetite is good and pt has not had any signs or symptoms of alcohol withdrawal.
[2019-04-12 09:27] LABS: Adrenocorticotropic Hormone 30 pg/mL (6-50)
[2019-04-16 12:05] LABS: Cortisol, Free, Urine 60.8 mcg/24 h (4.0-50.0); Total Volume 2700 mL
== END 2019-04-11 11:30 | DRG 557 ==
LOC: ED 12:38 → AC 12:41 → ICU 14:05 → AC 04-10 21:45
PROVIDERS: Family Medicine; Internal Medicine; Admitting Provider Family Medicine; Emergency Provider Emergency Medicine; Family Provider Family Medicine; PCP Family Medicine; Visit Provider Family Medicine
DX: M62.82 Rhabdomyolysis (principal); I21.A1 Myocardial infarction type 2; N17.9 Acute kidney failure, unspecified; E87.1 Hypo-osmolality and hyponatremia; E87.5 Hyperkalemia; M79.651 Pain in right thigh; G93.89 Other specified disorders of brain; D53.8 Other specified nutritional anemias; I95.9 Hypotension, unspecified; R41.82 Altered mental status, unspecified; S73.101A Unspecified sprain of right hip, initial encounter; D12.6 Benign neoplasm of colon, unspecified; E86.0 Dehydration; N40.1 Benign prostatic hyperplasia with lower urinary tract symptoms; R33.8 Other retention of urine; E78.5 Hyperlipidemia, unspecified; I10 Essential (primary) hypertension; I25.10 Atherosclerotic heart disease of native coronary artery without angina pectoris; D35.2 Benign neoplasm of pituitary gland; Z91.81 History of falling; E83.42 Hypomagnesemia; Z87.891 Personal history of nicotine dependence
CPT/HCPCS: 36415; 70496; 70498; 70548; 70551; 70553; 73522; 74022; 80048; 80053; 80076; 80305; 80320; 81001; 82024; 82140; 82530; 82550; 82553; 82607; 82728; 83036; 83540; 83550; 83605; 83735; 84145; 84146; 84305; 84443; 84484; 85014; 85018; 85025; 85610; 85730; 86850; 86900; 86901; 87040; 87797; 93005; 93010; 93306; 93971; 96360; 96361; 97110; 97112; 97116; 97163; 97166; 97530; 97535; 99223; 99232; 99233; 99238; 99285; 99356; A9579; J1650; J2060; J3480; J7050; Q9957

== ENCOUNTER 2019-04-13 21:37 | Emergency (ER) | payer MEDICARE, SELFPAY ==
[2019-04-05 13:59] VITALS: BMI 23.8
[2019-04-13 21:42] VITALS: BP 124/84; PULSE 108; RESP 18; TEMP 37.6; O2SAT 91; BMI 24.9
--- NOTE | 2019-04-13 21:42 | DI.RAD.S_ITS ---
PROCEDURE: XR CHEST 1V INDICATIONS: Hypoxia eval for pneumonia TECHNIQUE: One view of the chest was acquired. COMPARISON: [facility], CR, XR ACUTE ABDOMEN SERIES, 04/05/2019, 10:29. [facility], CT, CT ANGIO CHEST PE PROTOCOL, 04/13/2019, 22:27. FINDINGS: Surgical changes and devices: None. Lungs and pleura: Patchy perihilar infiltrates are seen, which are better demonstrated on the subsequently performed CT examination. The moderate bilateral pleural effusions are seen on the CT are not appreciated on this study. No pneumothorax is seen. Mediastinum: Mediastinal contours appear normal. Heart size is normal. Bones and chest wall: No suspicious bony lesions. Age-appropriate bony degenerative changes are seen. Overlying soft tissues appear unremarkable. IMPRESSION: Patchy perihilar infiltrates, which have developed since the 04/05/19 plain film study. Note: No significant discrepancy from the preliminary report. Dictated by: Brown Mcdaniel M.D. on 04/14/2019 at 7:52 Approved by: Brown Mcdaniel M.D. on 04/14/2019 at 7:54
[2019-04-13 21:45] VITALS: BP 131/78; PULSE 104; RESP 27; O2SAT 92
--- NOTE | 2019-04-13 21:51 | ED_ITS ---
HPI - General Adult General Chief complaint: Shortness of Breath/Dyspnea Stated complaint: Hypoxia Time Seen by Provider: 04/13/19 21:41 Source: patient and EMS Mode of arrival: EMS Limitations: no limitations History of Present Illness HPI narrative: Patient is a 73-year-old female on 04/11/2019 he was discharged f rom this hospital after being admitted for 2 days for diagnosis of rhabdo. During that visit he was found to be lying on the floor of his home by his boss after he did not show up to work. Came into the emergency department found to have an elevated CK. He was unsure as to how he fell. Apparently there was potentially some alcohol issues involved in this situation. During that hospital visit patient had a slight elevation in his troponin to 0.040. Had an echocardiogram performed at that time which showed ejection fraction of 45-50%. Also during that visit he had an MRI which showed a pituitary adenoma. According to the discharge summary this is going to be worked up as an outpatient. Was discharged to a custodial facility. This evening from the best I could tell he was at his normal [facility] when the nursing staff found that he was hypoxic. EMS reports that on room air his oxygen saturations were in the mid to high 80s. This did improve with oxygen by nasal cannula. EMS stated that they had to have him on 6 L of nasal cannula in order to keep his oxygen saturations greater than 94%. Patient denied any shortness of breath. He does state that he has a ?rasp? in his breathing and also a cough. Apparently this started this evening. Patient denies any fevers. EMS reports that the nursing facility stated that he had a fever although the exact number was not known. He did receive an albuterol neb by EMS in route. Patient states this did not seem to improve his symptoms. Denies any chest pain. No headaches. No trauma. Related Data Previous Rx's Medication Instructions Recorded aspirin 81 mg PO DAILY #100 tab 04/11/19 atorvastatin [Lipitor] 10 mg PO BEDTIME #100 tab 04/11/19 metoprolol tartrate 12.5 mg PO BID #100 tab 04/11/19 Allergies Allergy/AdvReac Type Severity Reaction Status Date / Time No Known Drug Allergies Allergy Unverified 04/05/19 10:31 Review of Systems Constitutional Constitutional: Denies chills, Denies fatigue, Reports fever(s) (Reported by nursing staff however patient denies), Denies headache(s) and Denies lethargy ENT Ears, Nose, Mouth, and Throat: Denies headache(s) and Denies disequilibrium Cardiovascular Cardiovascular: Denies chest pain, Denies syncope, Denies pedal edema, Denies lightheadedness, Denies palpitations and Denies dyspnea Respiratory Respiratory: Reports cough, Denies dyspnea and Denies wheezing Gastrointestinal Gastrointestinal: Denies abdominal pain, Denies nausea and Denies vomiting Musculoskeletal Musculoskeletal: Denies myalgias and Denies arthralgias Integumentary/Breasts Skin/Breast: Denies lesions and Denies rash Neurologic Neurologic: Denies abnormal movements, Denies abnormal speech, Denies behavioral changes, Denies syncope, Denies headache(s), Denies focal weakness and Denies disequilibrium Psychiatric Psychiatric: Denies behavioral changes Endocrine Endocrine: Denies fatigue and Denies palpitations Hematologic/Lymphatic Hematologic/Lymphatic: Denies easy bleeding and Denies easy bruising Allergic/Immunologic Allergic/Immunologic: Denies urticaria and Denies wheezing Patient History Medical History (Updated 04/14/19 @ 00:40 by John Patel DO) Acute urinary retention (Inactive) Dyslipidemia (Acute) Hypertension (Acute) Rhabdomyolysis (Inactive) Tubular adenoma (Inactive) Social History household members: none Smoking Status: Former smoker alcohol intake: former Smoking Status: Former smoker alcohol intake frequency: 3 or more drinks per day Alcohol type: beer Substance Use Type: marijuana Exam Initial Vital Signs Initial Vital Signs: Vital Signs Temperature 99.7 F H 04/13/19 21:42 Pulse Rate 108 H 04/13/19 21:42 Respiratory Rate 18 04/13/19 21:42 Blood Pressure 124/84 04/13/19 21:42 Pulse Oximetry 91 04/13/19 21:42 Const General: cooperative, comfortable, well developed and well groomed Orientation: alert, awake and oriented x3 Limitations: mental status not altered HENMT Head: normal to inspection and normocephalic Ears: hearing grossly normal bilaterally Nose: external nose normal Face and sinus: normal facial exam Eyes General: appearance normal, both eyes and all related structures Neck Neck: normal visual inspection Chest Chest: No crepitus and No tenderness Resp Effort & Inspection: cough, not labored, no retractions and tachypneic Auscultation: rhonchi (Right side) Cardio Rate: tachycardic Rhythm: regular rhythm Pulses: radial pulses present GI Inspection: non-distended Palpation: soft, No firm and No tender Skin Lesions: no lesions Rashes: no rashes Neuro General: alert, awake and oriented x3 Cognition: normal cognition Speech: speech normal Motor: muscle tone normal throughout Extrem General: normal to inspection and capillary refill normal Psych Appearance: grossly normal and well kempt Scores GCS Chris coma scale eye opening: Spontaneous Willard coma scale verbal response: Orientated Chris coma scale motor response: Obey commands Chris coma scale total score: 15 Course Orders Ordered: ED Orders 04/13/19 21:42 XR chest 1V Stat EKG-12 Lead Stat 04/13/19 21:43 RT Consult Eval and Treat Now 04/13/19 21:50 Influenza A & B (PCR) Stat 04/13/19 21:55 B Type Natriuretic Peptide Stat Complete Blood Count AUTO DIFF Stat Comprehensive Metabolic Panel Stat Creatine Kinase Stat Ethanol (ETOH) Stat Lactate (Lactic Acid) Stat Lipase Stat Partial Thromboplastin Time Stat Procalcitonin Stat Prothrombin Time INR Stat Troponin I Stat 04/13/19 22:26 CT angio chest PE protocol Stat 04/13/19 23:34 EKG-12 Lead Stat Sodium Chloride (Normal Saline 0.9%) 1,000 mls @ 150 mls/hr IV CONT DION Last Admin: 04/13/19 22:30 Dose: 150 mls/hr Documented by: ROSMERY Heparin Sodium/Dextrose (Heparin Drip) 25,000 unit in 500 mls @ 20 mls/hr IV CONT DION; Protocol Last Admin: 04/13/19 22:50 Dose: 1,000 units/hr, 20 mls/hr Documented by: SAQIBFARKristina Discontinued Medications Aspirin (Aspirin Chew) 324 mg PO NOW ONE Stop: 04/13/19 22:30 Last Admin: 04/13/19 22:50 Dose: 324 mg Documented by: MMCMALACHI Furosemide (Lasix) 60 mg IV NOW ONE Stop: 04/13/19 22:28 Last Admin: 04/13/19 22:49 Dose: 60 mg Documented by: MMCFARKristina Heparin Sodium (Porcine) (Heparin) 5,000 unit IV NOW ONE Stop: 04/13/19 22:30 Last Admin: 04/13/19 22:50 Dose: 5,000 unit Documented by: MERI Levofloxacin (Levaquin) 750 mg in 150 mls @ 100 mls/hr IV NOW ONE Stop: 04/13/19 23:56 Last Infusion: 04/14/19 00:44 Dose: 0 mls/hr Documented by: Admin: 04/13/19 22:49 Dose: 100 mls/hr Documented by: MERI Vital Signs Vital signs: Vital Signs - 8 hr 04/13/19 21:42 04/13/19 21:45 04/13/19 22:00 Temperature 99.7 F H Pulse Rate 108 H 104 H 103 H Respiratory Rate 18 27 H 27 H Blood Pressure 124/84 Blood Pressure [Right Arm] 131/78 131/78 Pulse Oximetry 91 92 94 04/13/19 22:15 04/13/19 23:10 04/14/19 00:00 Temperature Pulse Rate 102 H 111 H 98 H Respiratory Rate 26 H 27 H 22 Blood Pressure Blood Pressure [Right Arm] 122/73 118/85 102/62 Pulse Oximetry 94 97 96 04/14/19 01:00 04/14/19 01:30 04/14/19 02:05 Temperature Pulse Rate 97 H 91 H 92 H Respiratory Rate 23 21 18 Blood Pressure Blood Pressure [Right Arm] 109/64 105/67 106/68 Pulse Oximetry 97 96 93 Medical Decision Making Medical Records Medical records reviewed: Yes I reviewed the patient's medical records. Lab Data Lab results reviewed: Yes I reviewed the patient's lab results. Result diagrams: 04/13/19 21:55 04/13/19 21:55 Labs: Lab Results 04/13/19 04/13/19 04/13/19 Range/Units 21:50 21:55 21:55 WBC 7.1 (4.5-11.0) X10^3/uL RBC 3.59 L (4.5-5.9) X10^6/uL Hgb 11.7 L (13.5-17.5) g/dL Hct 34.7 L (41-53) % MCV 96.4 (80-100) fL MCH 32.5 (26-34) PG MCHC 33.7 (30-36) % RDW 12.7 (11.6-14.8) % Plt Count 200 (150-400) X10^3/uL Neut % (Auto) 74.3 (50-75) % Lymph % (Auto) 10.7 L (25-40) % [place] % (Auto) 8.0 (3-14) % Eos % (Auto) 3.5 (2-4) % Baso % (Auto) 3.5 H (0-2) % Neut # (Auto) 5300 (5275-0233) /uL Lymph # (Auto) 800 L (2906-0499) /uL [place] # (Auto) 600 (0-900) /uL Eos # (Auto) 200 (0-450) /uL Baso # (Auto) 200 H (0-100) /uL PT (10.1-12.7) SECONDS INR (0.9-1.3) APTT (26.4-36.2) SECONDS Sodium 132 L (137-145) mmol/L Potassium 3.8 (3.4-5.1) mmol/L Chloride 96 L (98-107) mmol/L Carbon Dioxide 26 (22-32) mmol/L BUN 9 (9-20) mg/dL Creatinine 0.70 (0.66-1.25) mg/dL Estimated GFR > 60.0 (>60) mL/min BUN/Creatinine Ratio 12.9 (6-22) Glucose 117 H (80-110) mg/dL Lactate (0.7-2.1) mmol/L Calcium 8.2 L (8.4-10.2) mg/dL Total Bilirubin 1.2 (0.2-1.3) mg/dL AST 110 H (17-59) IU/L ALT 51 H (<50) IU/L Alkaline Phosphatase 94 (38-126) U/L Total Creatine Kinase (55-170) U/L Troponin I 6.870 H* (0.01-0.034) ng/mL B-Natriuretic Peptide 2560 H (<100) Total Protein 6.4 (6.3-8.2) g/dL Albumin 3.4 L (3.5-5.0) g/dL Globulin 3.0 (1.7-4.1) g/dL Albumin/Globulin Ratio 1.1 (1.0-2.8) Lipase 92 (23-300) U/L Procalcitonin (<0.5) ng/mL Ethyl Alcohol ( - 10) mg/dL Influenza A (RT-PCR) Flu a negative (NEGATIVE) Influenza B (RT-PCR) Flu b negative (NEGATIVE) 04/13/19 04/13/19 04/13/19 Range/Units 21:55 21:55 21:55 WBC (4.5-11.0) X10^3/uL RBC (4.5-5.9) X10^6/uL Hgb (13.5-17.5) g/dL Hct (41-53) % MCV (80-100) fL MCH (26-34) PG MCHC (30-36) % RDW (11.6-14.8) % Plt Count (150-400) X10^3/uL Neut % (Auto) (50-75) % Lymph % (Auto) (25-40) % [place] % (Auto) (3-14) % Eos % (Auto) (2-4) % Baso % (Auto) (0-2) % Neut # (Auto) (0705-5942) /uL Lymph # (Auto) (9168-5143) /uL [place] # (Auto) (0-900) /uL Eos # (Auto) (0-450) /uL Baso # (Auto) (0-100) /uL PT (10.1-12.7) SECONDS INR (0.9-1.3) APTT (26.4-36.2) SECONDS Sodium (137-145) mmol/L Potassium (3.4-5.1) mmol/L Chloride (98-107) mmol/L Carbon Dioxide (22-32) mmol/L BUN (9-20) mg/dL Creatinine (0.66-1.25) mg/dL Estimated GFR (>60) mL/min BUN/Creatinine Ratio (6-22) Glucose (80-110) mg/dL Lactate 1.7 (0.7-2.1) mmol/L Calcium (8.4-10.2) mg/dL Total Bilirubin (0.2-1.3) mg/dL AST (17-59) IU/L ALT (<50) IU/L Alkaline Phosphatase (38-126) U/L Total Creatine Kinase 261 H (55-170) U/L Troponin I (0.01-0.034) ng/mL B-Natriuretic Peptide (<100) Total Protein (6.3-8.2) g/dL Albumin (3.5-5.0) g/dL Globulin (1.7-4.1) g/dL Albumin/Globulin Ratio (1.0-2.8) Lipase (23-300) U/L Procalcitonin < 0.05 (<0.5) ng/mL Ethyl Alcohol < 10 ( - 10) mg/dL Influenza A (RT-PCR) (NEGATIVE) Influenza B (RT-PCR) (NEGATIVE) 04/13/19 Range/Units 21:55 WBC (4.5-11.0) X10^3/uL RBC (4.5-5.9) X10^6/uL Hgb (13.5-17.5) g/dL Hct (41-53) % MCV (80-100) fL MCH (26-34) PG MCHC (30-36) % RDW (11.6-14.8) % Plt Count (150-400) X10^3/uL Neut % (Auto) (50-75) % Lymph % (Auto) (25-40) % [place] % (Auto) (3-14) % Eos % (Auto) (2-4) % Baso % (Auto) (0-2) % Neut # (Auto) (3122-5601) /uL Lymph # (Auto) (2728-9458) /uL [place] # (Auto) (0-900) /uL Eos # (Auto) (0-450) /uL Baso # (Auto) (0-100) /uL PT 13.3 H (10.1-12.7) SECONDS INR 1.1 (0.9-1.3) APTT 32 D (26.4-36.2) SECONDS Sodium (137-145) mmol/L Potassium (3.4-5.1) mmol/L Chloride (98-107) mmol/L Carbon Dioxide (22-32) mmol/L BUN (9-20) mg/dL Creatinine (0.66-1.25) mg/dL Estimated GFR (>60) mL/min BUN/Creatinine Ratio (6-22) Glucose (80-110) mg/dL Lactate (0.7-2.1) mmol/L Calcium (8.4-10.2) mg/dL Total Bilirubin (0.2-1.3) mg/dL AST (17-59) IU/L ALT (<50) IU/L Alkaline Phosphatase (38-126) U/L Total Creatine Kinase (55-170) U/L Troponin I (0.01-0.034) ng/mL B-Natriuretic Peptide (<100) Total Protein (6.3-8.2) g/dL Albumin (3.5-5.0) g/dL Globulin (1.7-4.1) g/dL Albumin/Globulin Ratio (1.0-2.8) Lipase (23-300) U/L Procalcitonin (<0.5) ng/mL Ethyl Alcohol ( - 10) mg/dL Influenza A (RT-PCR) (NEGATIVE) Influenza B (RT-PCR) (NEGATIVE) Imaging Data Echo: Radiologist's impression: [address] [address] Echocardiography Report Signed Patient: Javan Wagner HMR#: [id number] : 1945cct:[id number] Age/Sex: 73 / MDate of Service: 04/05/19 Loc: RTQ087-6 Accession Number: [id number] Procedure: EC echo doppler complete Ordering Provider: Nolberto Yanez MD [place] +---------+ [facility] +---------+ : : [address] [place] [address]. : : : : [place], [place] : : : : [id number] : : : : Phone: [phone] Echocardiogram Report + + :Name: JAVAN WAGNER Study Date: 04/06/2019 Height: 62 in : :[facility] Weight: 150 lb : : Gender: Male BSA: 1.7 m2 : :: 1945 Age: 73 yrs BP: 111/48 mmHg: :Reason For Study: CAD : : Performed By: Anjelica Arauz : :Referring: NOLBERTO YANEZ : + + Interpretation Summary Normal left ventricle size with ejection fraction 45-50%. Apical anterior wall, apical septum and apex are akinetic. Grade I diastolic dysfunction. The left atrium is severely dilated. Moderate mitral annular calcification. Mild tricuspid regurgitation. Comparison is made with the echocardiogram of 04-02-13, LV function has worsen with new wall motion abnormality. Procedure: A two-dimensional transthoracic echocardiogram with color flow and Doppler was performed. The study quality was technically adequate. Comparison is made with the echocardiogram of 04-02-13. 1.5 cc of Definity contrast was used to improve images of the LV apex. The patient was in normal sinus rhythm during the exam. Left Ventricle: The left ventricle is normal in size. The ejection fraction is estimated to be 45-50%. There is apical anterior wall akinesis. There is apical septal wall severe hypokinesis. There is apical akinesis. Diastolic parameters suggest a relaxation abnormality of the left ventricle, consistent with probable normal filling pressures. Right Ventricle: The right ventricle grossly appears normal in size with probable normal systolic function. Atria: The left atrium is severely dilated. Right atrial size is normal. The interatrial septum is intact with no evidence for an atrial septal defect. Mitral Valve: The mitral valve leaflets appear mildly thickened, but open well. There is moderate mitral annular calcification. There is no mitral regurgitation noted. Aortic Valve: The aortic valve is trileaflet. The aortic valve opens well. No aortic regurgitation is present. Tricuspid Valve: The tricuspid valve leaflets are thin and pliable. There is mild tricuspid regurgitation. The right ventricular systolic pressure is estimated to be at least 31 mmHg based on an estimated right atrial pressure of 3 mm Hg. Pulmonic Valve: The pulmonic valve is not well seen, but is grossly normal. There is a trace or physiologic amount of pulmonic regurgitation. Great Vessels: The aortic root is normal size. The aortic arch is normal in size. Pericardium/ Pleura There is no pericardial effusion. There is no pleural effusion. MMode/2D Measurements & Calculations LVIDd: 5.2 cm Ao root diam: 3.6 cm LVIDs: 4.2 cm Aortic Jxn: 3.2 cm FS: 19.1 % Ao Arch Diam (Prox Trans): 2.4 cm EPSS: 0.83 cm IVSd: 1.0 cm LVPWd: 0.77 cm LV tyson. diameter/BSA (cm/m^2): 3.1 LV sys. diameter/BSA (cm/m^2): 2.5 LA dimension: 4.3 cm RA long axis: 4.8 cm LA A2 area: 21.7 cm2 RA area: 15.8 cm2 LA A4 area: 22.9 cm2 RA vol: 44.2 ml LA length (vol): 4.8 cm RA : 26.1 ml/m2 LA vol: 87.5 ml IVC diam: 1.4 cm LA vol index: 51.8 ml/m2 RVDd major: 5.7 cm RVD1 (basal): 2.6 cm RVD2 (mid): 2.3 cm Doppler Measurements & Calculations Ao V2 max: 136.9 cm/sec MV E max rodri: 75.9 cm/sec Ao V2 mean: 80.1 cm/sec MV A max rodri: 110.2 cm/sec Ao max P.5 mmHg MV E/A: 0.69 Ao mean P.2 mmHg Med Peak E' Rodri: 6.6 cm/sec Ao V2 VTI: 25.8 cm E/E' med: 11.4 Lat Peak E' Rodri: 8.7 cm/sec E/E' lat: 8.7 E/e' average: 10.1 MV dec time: 0.22 sec MV P1/2t: 62.9 msec TR max rodri: 264.8 cm/sec MV P1/2t max rodri: 75.4 cm/sec TR max P.1 mmHg MVA(P1/2t): 3.5 cm2 PA V2 max: 128.0 cm/sec PA V2 mean: 72.4 cm/sec PA mean P.7 mmHg PA Accel Time: 0.12 sec Electronically signed by: Yas Leyva on Reading Physician:04/06/2019 05:49 PM Chest x-ray: Attestation: I personally reviewed and interpreted this imaging study as follows: My impression: Bilateral patchy infiltrates, no pneumothorax, CT scan - chest: Radiologist's impression: No acute pulmonary artery embolism. No aortic dissection. Heart pleural effusions. Bilateral ground-glass infiltrates may reflect ARDS or cryptogenic organizing pneumonia. Cholelithiasis ECG Data Prior ECG tracings: available for review Interpretation: Sinus tachycardia Ventricular rate of 106 Normal axis Normal QRS Normal QTC ST depression V4 V5 V6 inverted T-waves lead 1-3 AVF Comparison EKG dated 04/07/2019 EKG from today similar to this EKG Repeat EKG from this emergency department visit sinus rhythm Ventricular rate of 99 Normal axis Normal QRS Normal QTC ST depressions V4 V5 V6 Unchanged from EKG on presentation MDM Narrative Medical decision making narrative: The echocardiogram report included in this note is for reference purposes only. It was performed during his last admission to the hospital. Patient arrived hypoxic tachypneic with coarse breath sounds on the right with a productive cough. With the possible reported fever by the nursing staff there was a presumption of a pneumonia. He was given Levaquin for this. Patient's labs returned showing an elevated BNP and also an elevated troponin. During his last visit his highest troponin level was 0.040. He return to normal prior to his discharge. His troponin today is assumed to be new. He is not complaining of any chest pain. His EKG shows ST depressions laterally however this is not new. He was given an aspirin. Was started on heparin. Chest x-ray shows bilateral patchy infiltrates and the CT scan shows pleural effusions. Given his elevated BNP is concerned about heart failure. He was given Lasix. Blood pressure then unremarkable. CT scan also shows no signs of a pulmonary embolism. Patient stated that he was having problems urinating. Bladder scan showed just over 1800 cc of urine in his bladder. A Bethea catheter was placed. According to the notes when he was admitted to the hospital a few days ago he required a Bethea catheter. I did mention in the note that he was having acute urinary retention. Unsure as to exactly when the catheter was removed. Discussed the case with Dr. Canales with Internal Medicine at [facility]. She accepts the patient in transport. I did discuss the need for the transport in his diagnosis and findings of his labs and radiologic studies with him. He expressed understanding of this. Patient is stable for transport. Discharge Plan Departure Patient Disposition: [facility] Clinical Impression: Non-ST elevation HI (NSTEMI), Pleural effusion, Acute urinary retention, Hypoxia Prescriptions: No Action atorvastatin [Lipitor] 10 mg Tablet 10 mg PO BEDTIME Qty: 100 RF: 0 aspirin 81 mg Tablet,Delayed Release (Dr/Ec) 81 mg PO DAILY Qty: 100 RF: 0 metoprolol tartrate 25 mg Tablet 12.5 mg PO BID Qty: 100 RF: 0 Referrals: Nolberto Yanez MD [Primary Care Provider] -
[2019-04-13 22:00] VITALS: BP 131/78; PULSE 103; RESP 27; O2SAT 94
[2019-04-13 22:09] LABS: Add Manual Diff / Slide Review NO; Basophils Absolute Auto 200 /uL (0-100); Basophils Percent Auto 3.5 % (0-2); Eosinophils Absolute Auto 200 /uL (0-450); Eosinophils Percent Auto 3.5 % (2-4); Hematocrit 34.7 % (41-53); Hemoglobin 11.7 g/dL (13.5-17.5); Lymphocytes Absolute Auto 800 /uL (1100-4500); Lymphocytes Percent Auto 10.7 % (25-40); Mean Corpuscular HGB Conc 33.7 % (30-36); Mean Corpuscular Hemoglobin 32.5 PG (26-34); Mean Corpuscular Volume 96.4 fL (80-100); Monocytes Absolute Auto 600 /uL (0-900); Neutrophils Absolute Auto 5300 /uL (1500-7000); Neutrophils Percent Auto 74.3 % (50-75); Platelet Count 200 X10^3/uL (150-400); Red Blood Cell Count 3.59 X10^6/uL (4.5-5.9); Red Cell Distribution Width 12.7 % (11.6-14.8); White Blood Cell Count 7.1 X10^3/uL (4.5-11.0)
[2019-04-13 22:15] VITALS: BP 122/73; PULSE 102; RESP 26; O2SAT 94
[2019-04-13 22:16] LABS: Alanine Aminotransferase 51 IU/L (<50); Albumin 3.4 g/dL (3.5-5.0); Albumin Globulin Ratio 1.1 (1.0-2.8); Alkaline Phosphatase 94 U/L (38-126); Aspartate Aminotransferase 110 IU/L (17-59); BUN Creatinine Ratio 12.9 (6-22); Bilirubin Total 1.2 mg/dL (0.2-1.3); Blood Urea Nitrogen 9 mg/dL (9-20); Calcium 8.2 mg/dL (8.4-10.2); Carbon Dioxide 26 mmol/L (22-32); Chloride 96 mmol/L (98-107); Estimated Glomerular Filt Rate > 60.0 mL/min (>60); Glucose 117 mg/dL (80-110); HEMOLYSIS < 15 (0-50); Lactate (Lactic Acid) 1.7 mmol/L (0.7-2.1); Lipase 92 U/L (23-300); Potassium 3.8 mmol/L (3.4-5.1); Sodium 132 mmol/L (137-145); Total Protein 6.4 g/dL (6.3-8.2)
[2019-04-13 22:17] LABS: Creatine Kinase 261 U/L (55-170); Ethanol (ETOH) < 10 mg/dL
[2019-04-13 22:26] LABS: B Type Natriuretic Peptide 2560 (<100)
--- NOTE | 2019-04-13 22:26 | DI.CT.S_ITS ---
PROCEDURE: CT ANGIO CHEST PE PROTOCOL INDICATIONS: Chest pain, shortness of breath, tachycardia TECHNIQUE: After the administration of intravenous contrast, 2 mm thick sections acquired from the pulmonary apices to the posterior costophrenic angles. 3-dimensional maximum intensity projection (MIP) coronal and sagittal reformats were then acquired through the thorax. For radiation dose reduction, the following was used: automated exposure control, adjustment of mA and/or kV according to patient size. COMPARISON: [facility], CR, XR ACUTE ABDOMEN SERIES, 04/05/2019, 10:29. [facility], CR, XR CHEST 1V, 04/13/2019, 21:57. FINDINGS: Image quality: Excellent. Pulmonary arteries: Pulmonary arteries are normal in size, and demonstrate no intraluminal filling defects to suggest central pulmonary embolism. Lungs and pleura: Patchy perihilar infiltrates are seen, which demonstrate a groundglass character. There are moderate bilateral pleural effusions seen, right larger than left. No pneumothorax is seen. The central airways are patent. Mediastinum: Heart size is normal, without pericardial effusion. Prominent coronary artery calcifications are seen. Enlarged mediastinal lymph nodes are seen, including a subcarinal lymph node measuring 2.2 x 1.5 cm. There is a precarinal lymph node seen measuring 2.4 x 1.5 cm. Thoracic aorta is normal in caliber and enhancement. Atherosclerotic calcification is noted. Esophagus is normal in caliber, without hiatal hernia. Bones and chest wall: No suspicious bony lesions. Ribs and thoracic spine appear intact throughout. Thyroid gland is small in size. No axillary or supraclavicular adenopathy. Incidental note is made of bilateral gynecomastia. Abdomen: A gallstone can be seen. Prominent upper abdominal veins can be seen. Visualized upper abdominal solid organs appear normal in the early arterial phase of enhancement. IMPRESSION: Negative for pulmonary embolism. Patchy perihilar infiltrates are seen. Differential diagnosis includes pulmonary edema, infectious change, and ARDS. Moderate bilateral pleural effusions are seen, right larger than left. Enlarged mediastinal lymph nodes are seen, which are regarded to be reactive. Incidental note is made of: Gallstone Atherosclerotic calcification, including dense coronary artery calcifications. Prominent upper abdominal veins. Note: No significant discrepancy from the preliminary report. Dictated by: Brown Mcdaniel M.D. on 04/14/2019 at 7:56 Approved by: Brown Mcdaniel M.D. on 04/14/2019 at 8:01
[2019-04-13 22:27] LABS: Influenza A - CEPHEID Flu A NEGATIVE (NEGATIVE); Influenza B - CEPHEID Flu B NEGATIVE (NEGATIVE)
[2019-04-13] MEDS: SODIUM CHLORIDE 0.9% 1,000 ML 150 ML IV (22:30)
[2019-04-13 22:34] LABS: Procalcitonin < 0.05 ng/mL (<0.5)
[2019-04-13 22:43] LABS: INR 1.1 (0.9-1.3); Prothrombin Time 13.3 SECONDS (10.1-12.7)
[2019-04-13 22:45] LABS: PTT Partial Thromboplastin Tim 32 SECONDS (26.4-36.2)
[2019-04-13] MEDS: FUROSEMIDE 100 MG/10 ML VIAL 60 MG IV (22:49)
[2019-04-13] MEDS: levoFLOXacin 750 MG/150 ML PIGGYBACK 100 MG IV (22:49)
[2019-04-13] MEDS: HEPARIN DRIP 25,000 UNIT/500 ML IV.SOLN 20 UNIT IV (22:50)
[2019-04-13] MEDS: ASPIRIN 81 MG CHEW TAB 324 MG PO (22:50)
[2019-04-13] MEDS: HEPARIN 5,000 UNIT/ML VIAL 5000 UNIT IV (22:50)
[2019-04-13 23:10] VITALS: BP 118/85; PULSE 111; RESP 27; O2SAT 97
[2019-04-14] VITALS: BP 102/62; PULSE 98; RESP 22; O2SAT 96
[2019-04-14 01:00] VITALS: BP 109/64; PULSE 97; RESP 23; O2SAT 97
[2019-04-14 01:30] VITALS: BP 105/67; PULSE 91; RESP 21; O2SAT 96
[2019-04-14 02:05] VITALS: BP 106/68; PULSE 92; RESP 18; O2SAT 93
[2019-04-14 02:30] VITALS: BP 108/68; PULSE 97; RESP 21; O2SAT 92
== END 2019-04-14 02:55 | disposition short-term general hospital (02) ==
PROVIDERS: Emergency Provider Emergency Medicine; Family Provider Family Medicine; PCP Family Medicine
DX: I21.4 Non-ST elevation (NSTEMI) myocardial infarction (principal); J90 Pleural effusion, not elsewhere classified; R33.9 Retention of urine, unspecified; R09.02 Hypoxemia
CPT/HCPCS: 36415; 51701; 51798; 71045; 71275; 80053; 80320; 82550; 83605; 83690; 83880; 84145; 84484; 85025; 85610; 85730; 87502; 93005; 96365; 96366; 96367; 96368; 96375; 96376; 99285; J1644; J1940; J1956

== ENCOUNTER → 2019-05-09 14:36 | Outpatient (ROUT) | payer SELFPAY ==
[2019-04-05 13:59] VITALS: BMI 23.8
[2019-05-09 15:01] LABS: Add Manual Diff / Slide Review NO; Basophils Absolute Auto 0 /uL (0-100); Basophils Percent Auto 0.6 % (0-2); Eosinophils Absolute Auto 200 /uL (0-450); Hematocrit 27.1 % (41-53); Hemoglobin 9.1 g/dL (13.5-17.5); Lymphocytes Absolute Auto 500 /uL (1100-4500); Lymphocytes Percent Auto 13.3 % (25-40); Mean Corpuscular HGB Conc 33.5 % (30-36); Mean Corpuscular Hemoglobin 30.3 PG (26-34); Mean Corpuscular Volume 90.5 fL (80-100); Monocytes Absolute Auto 400 /uL (0-900); Monocytes Percent Auto 11.1 % (3-14); Neutrophils Absolute Auto 2500 /uL (1500-7000); Platelet Count 162 X10^3/uL (150-400); Red Cell Distribution Width 14.5 % (11.6-14.8); White Blood Cell Count 3.6 X10^3/uL (4.5-11.0)
[2019-05-09 15:11] LABS: Alanine Aminotransferase 21 IU/L (<50); Albumin 2.9 g/dL (3.5-5.0); Albumin Globulin Ratio 0.9 (1.0-2.8); Alkaline Phosphatase 90 U/L (38-126); Aspartate Aminotransferase 44 IU/L (17-59); Bilirubin Total 1.9 mg/dL (0.2-1.3); Blood Urea Nitrogen 14 mg/dL (9-20); Calcium 7.8 mg/dL (8.4-10.2); Carbon Dioxide 18 mmol/L (22-32); Chloride 96 mmol/L (98-107); Estimated Glomerular Filt Rate > 60.0 mL/min (>60); Globulin 3.3 g/dL (1.7-4.1); Glucose 65 mg/dL (80-110); HEMOLYSIS < 15 (0-50); Potassium 4.2 mmol/L (3.4-5.1); Sodium 127 mmol/L (137-145); Total Protein 6.2 g/dL (6.3-8.2)
== END ==
PROVIDERS: Family Provider Family Medicine; Visit Provider Internal Medicine
DX: R31.9 Hematuria, unspecified (principal)
CPT/HCPCS: 36415; 80053; 85025

== ENCOUNTER → 2019-05-29 12:14 | Outpatient (ROUT) | payer SELFPAY ==
[2019-04-05 13:59] VITALS: BMI 23.8
[2019-05-29 12:24] LABS: Add Manual Diff / Slide Review NO; Basophils Absolute Auto 0 /uL (0-100); Basophils Percent Auto 0.6 % (0-2); Eosinophils Absolute Auto 100 /uL (0-450); Eosinophils Percent Auto 5.1 % (2-4); Hematocrit 26.8 % (41-53); Hemoglobin 8.9 g/dL (13.5-17.5); Lymphocytes Absolute Auto 700 /uL (1100-4500); Mean Corpuscular HGB Conc 33.3 % (30-36); Mean Corpuscular Hemoglobin 29.4 PG (26-34); Mean Corpuscular Volume 88.4 fL (80-100); Monocytes Absolute Auto 200 /uL (0-900); Monocytes Percent Auto 8.8 % (3-14); Neutrophils Absolute Auto 1400 /uL (1500-7000); Neutrophils Percent Auto 56.5 % (50-75); Platelet Count 157 X10^3/uL (150-400); Red Blood Cell Count 3.03 X10^6/uL (4.5-5.9); Red Cell Distribution Width 15.5 % (11.6-14.8); White Blood Cell Count 2.6 X10^3/uL (4.5-11.0)
[2019-05-29 12:31] LABS: Alanine Aminotransferase 17 IU/L (<50); Albumin 2.9 g/dL (3.5-5.0); Albumin Globulin Ratio 0.7 (1.0-2.8); Alkaline Phosphatase 104 U/L (38-126); Aspartate Aminotransferase 47 IU/L (17-59); Bilirubin Total 0.9 mg/dL (0.2-1.3); Blood Urea Nitrogen 14 mg/dL (9-20); Calcium 8.5 mg/dL (8.4-10.2); Carbon Dioxide 23 mmol/L (22-32); Chloride 105 mmol/L (98-107); Estimated Glomerular Filt Rate 49.7 mL/min (>60); Globulin 3.9 g/dL (1.7-4.1); Glucose 97 mg/dL (80-110); HEMOLYSIS < 15 (0-50); Potassium 4.1 mmol/L (3.4-5.1); Sodium 137 mmol/L (137-145); Total Protein 6.8 g/dL (6.3-8.2)
== END ==
PROVIDERS: Family Provider Family Medicine; Visit Provider Internal Medicine
DX: M62.82 Rhabdomyolysis (principal); E78.5 Hyperlipidemia, unspecified
CPT/HCPCS: 80053; 85025

== ENCOUNTER → 2019-06-01 13:27 | Outpatient (ROUT) | payer SELFPAY ==
[2019-04-05 13:59] VITALS: BMI 23.8
[2019-06-01 13:31] LABS: Appearance Urine UA CLOUDY; Bilirubin Urine UA NEGATIVE (NEGATIVE); Color Urine UA YELLOW; Glucose Urine UA NEGATIVE (Negative); Ketones Urine UA NEGATIVE (NEGATIVE); Leukocyte Esterase Urine UA TRACE (NEGATIVE); Nitrite Urine UA NEGATIVE (Negative); Occult Blood Urine UA 3+ (Negative); Protein Urine UA TRACE (Negative); Urobilinogen Urine UA 0.2 E.U./dL (0.2); pH Urine UA 5.5 (4.5-8.0)
[2019-06-01 13:50] LABS: RBC Urine 30-100/HPF (0-5/HPF); Squamous Epithelial Cell Urine 0-1 /HPF (0-5/HPF); WBC Urine 5-10/HPF (0-5/HPF)
[2019-06-01 13:51] LABS: Amorphous Sediment Urine 3+; Bacteria Urine Few (2-10); Culture Indicated Urine Specimen Cultured; Mucus Urine 2+ (Negative)
== END ==
PROVIDERS: Family Provider Family Medicine; Visit Provider Internal Medicine
DX: N40.0 Benign prostatic hyperplasia without lower urinary tract symptoms (principal)
CPT/HCPCS: 81001; 87086